=== PATIENT | female | born 1980 | race Caucasian/White ===

== ENCOUNTER 2023-02-28 11:12 | Outpatient (REF) | payer MEDICAID, SELFPAY ==
[2023-03-01 03:33] LABS: CT PCR NOT DETECTED (Not Detect.); NG PCR NOT DETECTED (Not Detect.)
[2023-03-01 13:39] LABS: BV Int Neg Control Negative (Negative); BV Int Pos Control Positive (Positive)
== END 2023-02-28 11:13 | disposition home or self-care (01) ==
LOC: HO.LAB 11:12
PROVIDERS: PCP Nurse Practitioner Family; Visit Provider Advanced Practice Midwife
DX: Z01.419 Encounter for gynecological examination (general) (routine) without abnormal findings (principal); M32.9 Systemic lupus erythematosus, unspecified; L65.9 Nonscarring hair loss, unspecified
CPT/HCPCS: 0353U; 87480; 87510; 87624; 87660; 88142

== ENCOUNTER 2023-02-28 12:27 | Outpatient (REF) | payer MEDICAID, SELFPAY ==
[2023-03-06 09:44] LABS: HPV mRNA E6/E7 rflx Not Detected (Not Detected)
== END 2023-02-28 12:28 | disposition home or self-care (01) ==
LOC: HO.LNP 12:27
PROVIDERS: Visit Provider Advanced Practice Midwife
DX: Z01.419 Encounter for gynecological examination (general) (routine) without abnormal findings (principal); Z11.51 Encounter for screening for human papillomavirus (HPV)
CPT/HCPCS: 87624; 88142

== ENCOUNTER → 2023-04-04 14:00 | Outpatient (BNV) | payer MEDICAID, SELFPAY | PROVIDERS: PCP Nurse Practitioner Family; Visit Provider Radiology Diagnostic Radiology | DX: Z12.31 Encounter for screening mammogram for malignant neoplasm of breast (principal) | CPT/HCPCS: 77063; 77067 ==

== ENCOUNTER 2023-04-04 14:31 | Outpatient (REF) | payer MEDICAID, SELFPAY ==
--- NOTE | ~2023-04-04 | MM_ITS ---
EXAMINATION: MM SCREENING DIGITAL BREAST TOMOSYNTHESIS, BILATERAL CLINICAL INFORMATION: Screening. Asymptomatic. The lifetime risk of breast cancer based on the Tyrer-Cuzick Model is 8.2%. COMPARISON: Mammography: This is a baseline mammogram. TECHNIQUE: Digital breast tomosynthesis is performed in both the craniocaudal and mediolateral oblique views along with computer-aided detection (CAD). Synthesized 2D images are generated from the tomosynthesis. FINDINGS: There are scattered areas of fibroglandular density (ACR BI-RADS breast composition Category b). There are no significant masses, abnormal calcifications, or other abnormalities. MM/MM tomosynthesis screening BI IMPRESSION: No mammographic evidence of malignancy. ASSESSMENT: BI-RADS BI-RADS 1 - Negative RECOMMENDATION: Routine annual mammography screening. 1 year F/U This examination should not preclude the clinical evaluation of a suspicious palpable abnormality. This patient's information was entered into a reminder system with a target due date for their next mammogram.
== END 2023-04-04 14:32 | disposition home or self-care (01) ==
LOC: HO.MAMMO 14:31
PROVIDERS: PCP Nurse Practitioner Family; Visit Provider Advanced Practice Midwife
DX: Z12.31 Encounter for screening mammogram for malignant neoplasm of breast (principal)
CPT/HCPCS: 77063; 77067

== ENCOUNTER 2023-04-06 13:39 | Emergency (ER) | payer MEDICAID, SELFPAY | END 2023-04-06 18:15 | disposition left against medical advice (07) | PROVIDERS: Emergency Provider Emergency Medicine; PCP Nurse Practitioner Family | DX: R51.9 Headache, unspecified (principal); M54.50 Low back pain, unspecified ==

== ENCOUNTER 2023-04-11 11:13 | Emergency (ER) | payer OTHER, MEDICAID, SELFPAY ==
[2023-04-11 11:34] VITALS: BP 143/89; PULSE 74; RESP 20; TEMP 37.1; O2SAT 98; BMI 40.4
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
[2023-04-11 12:04] LABS: Appearance Urine Clear; Color Urine Yellow; Glucose Urine UA Negative (Negative); Leukocyte Esterase Urine Negative (Negative); Nitrite Urine Negative (Negative); Specific Gravity - Urine <= 1.005 (1.005-1.025); Urine Blood Negative (Negative); Urine Ketones Negative (Negative); Urine Protein Negative (Neg-Trace)
[2023-04-11 12:05] LABS: UPreg QC Valid YES; Urine Pregnancy NEGATIVE (NEGATIVE)
[2023-04-11] MEDS: Cyclobenzaprine HCl 5 MG TABLET PO (12:33)
[2023-04-11] MEDS: Ketorolac Tromethamine 15 MG/ML VIAL IM (12:33)
== END 2023-04-11 12:48 | disposition home or self-care (01) ==
PROVIDERS: Physician Assistant; Emergency Provider Emergency Medicine
DX: Z04.1 Encounter for examination and observation following transport accident (principal); M54.2 Cervicalgia; M54.9 Dorsalgia, unspecified
CPT/HCPCS: 81003; 81025; 96372; 99284; J1885

== ENCOUNTER 2023-11-30 21:45 | Emergency (ER) | payer MEDICAID, SELFPAY ==
[2023-11-30 21:49] VITALS: BP 131/87; PULSE 104; RESP 18; TEMP 36.9; O2SAT 97; BMI 41.6
[2023-11-30 22:14] LABS: Hematocrit 32.3 % (37.0-47.0); Hemoglobin 9.9 g/dl (12.0-16.0); Mean Corpuscular HGB Conc 30.7 g/dl (31.0-35.0); Mean Corpuscular Volume 74.9 fL (80.0-98.0); Mean Platelet Volume 10.4 fL (9.4-12.3); Platelet Count 277 X10*3/uL (160-400); Red Blood Count 4.31 X10*6/uL (4.20-5.50); Red Cell Distribution Width 17.1 % (11.0-16.0); White Blood Count 8.7 X10*3/uL (4.8-10.8)
[2023-11-30 22:16] LABS: Appearance Urine Turbid; Color Urine Yellow; Glucose Urine UA Negative (Negative); Leukocyte Esterase Urine Large (3+) (Negative); Nitrite Urine Negative (Negative); PH 6.5 (5.0-9.0); Specific Gravity - Urine 1.015 (1.005-1.025); UMIC TRIGGER UACC YES; Urine Blood Moderate (2+) (Negative); Urine Ketones Negative (Negative); Urine Protein 100 (2+) mg/dL (Neg-Trace)
[2023-11-30 22:28] LABS: Alanine Aminotransferase 33 U/L (0-31); Albumin Level 3.7 g/dL (3.5-5.0); Alkaline Phosphatase 73 U/L (39-117); Anion Gap 11 (12-20); Aspartate Amino Transferase 64 U/L (5-31); Bilirubin Total 0.3 mg/dL (0.0-1.0); Blood Urea Nitrogen 16 mg/dL (9-16); Calcium 9.3 mg/dL (8.4-10.2); Carbon Dioxide 24 mmol/L (22-29); Chloride 109 mmol/L (96-108); Creatinine Clr Calc Pharmacy 120.7; Estimated Glomerular Filt Rate > 60; Glucose Random 110 mg/dL (60-115); Potassium 3.8 mmol/L (3.3-5.1); Sodium 140 mmol/L (135-145); Total Protein 7.7 g/dL (6.5-8.0)
[2023-11-30 22:43] LABS: Bacteria Urine 3+ (None Seen); Hyaline Casts Urine 0-2 /LPF (0-2); Squamous Epithelial Cell Urine 0-2 /HPF (0-2); UACC Culture Trigger YES; WBC Urine >50 /HPF (0-5)
--- NOTE | 2023-11-30 23:25 | ED.FEMALEGU ---
HPI - Female Genitourinary General Chief complaint: Urogenital-Female Stated complaint: blood in urine for 1 week Time Seen by Provider: 11/30/23 23:25 History of Present Illness HPI Narrative: The patient is a 43-year-old woman with a history of lupus. She has on no medications however. She says that for the last 5 days she has had urinary discomfort as well as urinary frequency and urgency and also suprapubic discomfort. She has had no definite fever. No vomiting. She says that few months ago she was briefly hospitalized at [facility] for a kidney infection. She does not feel that she is a sick on this occasion as she was then. Related Data Previous Rx's Medication Instructions Recorded metronidazole 0.75 % (37.5 mg/5 1 appful vaginal BEDTIME 5 days 03/01/23 gram) vaginal gel #70 grams cyclobenzaprine 5 mg tablet 5 mg PO TID PRN muscle spasm 7 04/11/23 days #21 tabs naproxen 500 mg tablet 500 mg PO BID 7 days #14 tabs 04/11/23 cefuroxime axetil 250 mg tablet 250 mg PO BID #10 tabs 11/30/23 phenazopyridine 200 mg tablet 200 mg PO TID PRN pain 6 doses #6 11/30/23 tabs Allergies Allergy/AdvReac Type Severity Reaction Status Date / Time No Known Allergies Allergy Verified 11/30/23 21:49 Review of Systems Review of Systems: Yes all other systems are reviewed and are negative PMFSH Past Medical History Medical History Breast cancer screening Cervical cancer screening Lupus Screen for sexually transmitted diseases Well woman exam with routine gynecological exam Surgical History Hx of emergency section Hx of tubal ligation Social History Social History Alcohol intake: never Patient Tobacco Use Status: Never used Tobacco Advance Directives: No Advance Directives Information Provided: Yes Physical Exam Vital Signs: Vital Signs: Last Vital Signs Temp 98.5 F 11/30/23 21:49 Pulse 104 H 11/30/23 21:49 Resp 18 11/30/23 21:49 BP 131/87 03/08/24 21:49 Pulse Ox 97 11/30/23 21:49 O2 Del Method Room Air 11/30/23 21:49 BMI result Body Mass Index 41.6 Const: Other: The patient is awake and alert, pleasant cooperative, she does not appear obviously acutely ill. HEENT: Other: The face is symmetrical. ?Mucous membranes moist. Eyes: Other: Pupils are round equal, conjunctivae are clear, extraocular movements intact Resp: Effort & Inspection: normal respiratory effort Auscultation: clear to auscultation bilaterally Cardio: Rate: regular rate Rhythm: regular rhythm Heart sounds: S1 normal heart sound present and S2 normal heart sound present GI: Other: There is mild suprapubic tenderness with palpation. Otherwise the abdomen is soft. : General: Yes no CVA tenderness Back/Spine/Pelvis: Back: no CVA tenderness Skin: Other: Skin is dry and unremarkable Neuro: Other: The patient is awake, alert, appropriate, neurologically intact Medical Decision Making Medical Decision Making MDM Narrative: The patient presents with classic symptoms of a UTI including dysuria, urgency, frequency, and suprapubic discomfort. No fever, no vomiting, no flank pain, no CVA percussion tenderness. Urinalysis is suggestive of UTI. She will be started on cefuroxime and phenazopyridine. Lab Data 11/30/23 22:08 11/30/23 22:08 Labs: Lab Results 11/30/23 Range/Units 22:08 WBC 8.7 (4.8-10.8) X10*3/uL RBC 4.31 (4.20-5.50) X10*6/uL Hgb 9.9 L (12.0-16.0) g/dl Hct 32.3 L (37.0-47.0) % MCV 74.9 L (80.0-98.0) fL MCH 23.0 L (27.0-33.0) pg MCHC 30.7 L (31.0-35.0) g/dl RDW 17.1 H (11.0-16.0) % Plt Count 277 (160-400) X10*3/uL MPV 10.4 (9.4-12.3) fL Absolute Nucleated RBC 0.000 (0.0-0.012) X10*3/uL Nucleated RBC % (auto) 0.0 (0.0-0.2) /100WBC Sodium 140 (135-145) mmol/L Potassium 3.8 (3.3-5.1) mmol/L Chloride 109 H (96-108) mmol/L Carbon Dioxide 24 (22-29) mmol/L Anion Gap 11 L (12-20) BUN 16 (9-16) mg/dL Creatinine 0.71 (0.5-1.4) mg/dL Estim Creat Clear Calc 120.7 Estimated GFR > 60 Random Glucose 110 (60-115) mg/dL Calcium 9.3 (8.4-10.2) mg/dL Total Bilirubin 0.3 (0.0-1.0) mg/dL AST 64 H (5-31) U/L ALT 33 H (0-31) U/L Alkaline Phosphatase 73 (39-117) U/L Total Protein 7.7 (6.5-8.0) g/dL Albumin 3.7 (3.5-5.0) g/dL Urine Color Yellow Urine Appearance Turbid Urine pH 6.5 (5.0-9.0) Ur Specific [place] 1.015 (1.005-1.025) Urine Protein 100 (2+) H (Neg-Trace) mg/dL Urine Glucose (UA) Negative (Negative) mg/dL Urine Ketones Negative (Negative) mg/dL Urine Blood Moderate (2+) H (Negative) Urine Nitrite Negative (Negative) Ur Leukocyte Esterase Large (3+) H (Negative) Urine RBC 11-20 H (0-2) /HPF Urine WBC >50 H (0-5) /HPF Ur Squamous Epith Cells 0-2 (0-2) /HPF Urine Bacteria 3+ (None Seen) Hyaline Casts 0-2 (0-2) /LPF Discharge Plan Discharge Clinical Impression: Urinary tract infection Patient Disposition: Home, Self-Care Instructions: Acute Urinary Retention in Women (ED) Additional Instructions: Your urine testing suggests a urinary tract infection. Please take the antibiotic 2 times a day as prescribed. Take it approximately every 12 hours. Next dose tomorrow morning. I have also sent a prescription for phenazopyridine to your pharmacy. This is a medication that can help ease the discomfort of a urinary tract infection. You may take this up to 3 times a day as prescribed. Drink lot of fluids. Please follow up with your regular doctor to discuss this episode further. Return to the emergency room if you feel significantly worse. Prescriptions: New cefuroxime axetil 250 mg tablet 250 mg PO BID Qty: 10 0RF phenazopyridine 200 mg tablet 200 mg PO TID PRN (Reason: pain) Qty: 6 0RF No Action metronidazole 0.75 % (37.5mg/5 gram) gel 1 appful vaginal BEDTIME 5 Days Qty: 70 0RF naproxen 500 mg tablet 500 mg PO BID 7 Days Qty: 14 0RF cyclobenzaprine 5 mg tablet 5 mg PO TID PRN (Reason: muscle spasm) 7 Days Qty: 21 0RF Referrals: [facility] [Primary Care Provider] - (Urinary tract infection)
[2023-11-30] MEDS: Phenazopyridine HCL 200 MG TABLET PO (23:55)
[2023-11-30] MEDS: cefuroxime axetiL 500 MG TABLET PO (23:55)
== END 2023-11-30 23:59 | disposition home or self-care (01) ==
PROVIDERS: Emergency Provider Emergency Medicine
DX: N39.0 Urinary tract infection, site not specified (principal)
CPT/HCPCS: 36415; 80053; 81001; 85027; 87086; 87088; 87186; 99283

== ENCOUNTER 2023-12-03 00:39 | Inpatient (IN) | payer MEDICAID, SELFPAY ==
[2023-12-03] VITALS (9 sets, daily range): BP systolic 103–135; BP diastolic 57–79; PULSE 69–108; RESP 16–18; TEMP 36.3–37.4; O2SAT 96–99; BMI 39.0
--- NOTE | ~2023-12-03 | CT_ITS ---
EXAMINATION: CT ABDOMEN AND PELVIS WITH CONTRAST CLINICAL INFORMATION: Right flank pain. COMPARISON: 02/25/2010 TECHNIQUE: Multidetector volumetric images were obtained from the superior aspect of the liver through the pubic symphysis following administration 85 mL of Omnipaque 350 intravenous contrast. Sagittal and coronal reformatted images were obtained on the technologist's workstation. Oral contrast: No This CT examination was performed using dose optimization techniques as appropriate, variously including the following: *Automated exposure control *Adjustment of mA and/or kV according to patient size (this includes techniques or standardized protocols for targeted exams where dose is matched to indication/reason for exam; i.e. extremities or head) *Use of iterative reconstruction technique DLP: 934 mGy-cm FINDINGS: LUNG BASES: No pleural or pericardial effusion. LIVER, GALLBLADDER, AND BILIARY TREE: The liver is enlarged. Few scattered hypodensities too small to characterize. No biliary ductal dilatation is present. The gallbladder is unremarkable with no evidence of radiopaque gallstones, gallbladder wall thickening, or obvious pericholecystic inflammatory changes. PANCREAS: Unremarkable. SPLEEN: Unremarkable. ADRENAL GLANDS: Unremarkable. KIDNEYS AND URETERS: Subtle heterogeneity of the right renal parenchyma. There is right urothelial thickening and enhancement with periureteric stranding. No hydronephrosis or perinephric fluid collection. BLADDER: Decompressed. GASTROINTESTINAL TRACT: Small and large bowel loops are of normal caliber. No small bowel obstruction. Appendix is within normal limits. ABDOMINAL WALL: Small fat-containing umbilical hernia. LYMPH NODES: No bulky lymphadenopathy. VASCULAR: Normal caliber abdominal aorta. PELVIC VISCERA: Unremarkable. OSSEOUS STRUCTURES: No destructive bone lesions. CT/CT abdomen pelvis w IV con IMPRESSION: Right urothelial thickening and enhancement with periureteric stranding. This may represent infection of the collecting system. Advise correlation with urinalysis.
[2023-12-03 01:50] LABS: MANUAL DIFF FLAG NO
[2023-12-03 01:53] LABS: Basophils Percent Auto 0.3 % (0-2); Eosinophils Absolute Auto 0.1 X10*3/uL (0.0-0.4); Eosinophils Percent Auto 0.6 % (0-4); Hematocrit 33.6 % (37.0-47.0); Hemoglobin 10.3 g/dl (12.0-16.0); Imm Gran Abs Auto 0.05 X10*3/uL (0.00-0.03); Imm Gran Pct Auto 0.5 % (0.0-0.4); Lymphocytes Absolute Auto 2.1 X10*3/uL (1.2-4.9); Lymphocytes Percent Auto 20.3 % (20-40); Mean Corpuscular HGB Conc 30.7 g/dl (31.0-35.0); Mean Corpuscular Hemoglobin 23.1 pg (27.0-33.0); Mean Corpuscular Volume 75.3 fL (80.0-98.0); Mean Platelet Volume 10.4 fL (9.4-12.3); Monocytes Absolute Auto 0.8 X10*3/uL (0.1-1.2); Monocytes Percent Auto 8.1 % (2-11); Neutrophils Absolute Auto 7.2 x10*3/uL (2.0-8.3); Neutrophils Percent Auto 70.2 % (45-73); Platelet Count 286 X10*3/uL (160-400); Red Blood Count 4.46 X10*6/uL (4.20-5.50); Red Cell Distribution Width 17.4 % (11.0-16.0); White Blood Count 10.2 X10*3/uL (4.8-10.8)
[2023-12-03 02:07] LABS: Alanine Aminotransferase 31 U/L (0-31); Albumin Level 3.7 g/dL (3.5-5.0); Alkaline Phosphatase 60 U/L (39-117); Anion Gap 11 (12-20); Aspartate Amino Transferase 34 U/L (5-31); Bilirubin Total 0.2 mg/dL (0.0-1.0); Blood Urea Nitrogen 14 mg/dL (9-16); Calcium 9.2 mg/dL (8.4-10.2); Carbon Dioxide 25 mmol/L (22-29); Chloride 107 mmol/L (96-108); Creatinine Clr Calc Pharmacy 113.1; Estimated Glomerular Filt Rate > 60; Glucose Random 111 mg/dL (60-115); Potassium 4.1 mmol/L (3.3-5.1); Sodium 139 mmol/L (135-145); Total Protein 7.7 g/dL (6.5-8.0)
--- NOTE | 2023-12-03 05:31 | ED_ITS ---
HPI - Abdominal Pain General Chief Complaint: Abdominal Pain Stated Complaint: kidney pain Time Seen by Provider: 12/03/23 05:13 Source: patient and family (, [place]) Mode of arrival: ambulatory Limitations: no limitations History of Present Illness HPI narrative: 43-year-old female with a history of lupus, pyelonephritis who presents emergency department for evaluation of right flank, right lower quadrant and suprapubic pain. Patient has had urinary tract symptoms for approximately 5 days with the symptoms +frequency and dysuria. She was seen here in the emergency department yesterday on 11/30/2023 and diagnosed with a urinary tract infection. Patient's evaluation yesterday revealed a normal WBC and kidney function. Patient's urinalysis was positive for protein, blood, leukocyte esterase with a microscopic revealing 11-20 RBCs greater than 50 WBCs and 3+ bacteria. She was treated with cefuroxime 250 mg q.12 hours x5 days and Pyridium 200 mg t.i.d. as needed for pain. Patient states that her pain got significantly worse, her right flank pain was 10/10, she had chills but no fever. She denied nausea, vomiting or diarrhea. Patient states that 2 months ago she was hospitalized for [address] [facility] for pyelonephritis. Urine culture from 11/30/2023 is growing Gram-negative rods Related Data Previous Rx's Medication Instructions Recorded metronidazole 0.75 % (37.5 mg/5 1 appful vaginal BEDTIME 5 days 03/01/23 gram) vaginal gel #70 grams cyclobenzaprine 5 mg tablet 5 mg PO TID PRN muscle spasm 7 04/11/23 days #21 tabs naproxen 500 mg tablet 500 mg PO BID 7 days #14 tabs 04/11/23 cefuroxime axetil 250 mg tablet 250 mg PO BID #10 tabs 11/30/23 phenazopyridine 200 mg tablet 200 mg PO TID PRN pain 6 doses #6 11/30/23 tabs Allergies Allergy/AdvReac Type Severity Reaction Status Date / Time No Known Allergies Allergy Verified 11/30/23 21:49 Review of Systems Review of Systems Yes all other systems are reviewed and are negative PMFSH Past Medical History [facility] Narrative: Social history: She denies tobacco, alcohol and drug use. Medical History Screen for sexually transmitted diseases Cervical cancer screening Breast cancer screening Well woman exam with routine gynecological exam Lupus Surgical History Hx of emergency section Hx of tubal ligation Social History Social History Alcohol intake: never Patient Tobacco Use Status: Never used Tobacco Smoked in Last 30 Days: No Use of substances other than those prescribed or required for medical reasons: No Advance Directives: No Advance Directives Information Provided: No Physical Exam ED Vital Signs: Vital Signs - 24 hr 12/03/23 00:41 12/03/23 02:49 12/03/23 05:42 Temperature 97.9 F 98.8 F Pulse Rate 108 H 101 H Pulse Rate [Monitor] 97 Respiratory Rate 18 16 Blood Pressure 135/78 131/76 Pulse Oximetry 99 97 Oxygen Delivery Method Room Air Room Air 12/03/23 06:06 Temperature 98.6 F Pulse Rate 72 Pulse Rate [Monitor] Respiratory Rate 16 Blood Pressure 125/69 Pulse Oximetry 97 Oxygen Delivery Method Room Air BMI result Body Mass Index 39.0 Vital signs revealed an elevated heart rate of 108 otherwise unremarkable. Exam: General: Awake, alert in no distress, elevated weight 99 kg, elevated BMI 39 kg per m2 Head: Normocephalic, atraumatic EENT: PERRL, Lids normal, sclera normal, conjunctiva normal, nose normal , ears normal, throat without erythema or exudates Neck: Supple, no adenopathy Lung: breath sounds symmetric, no wheezing, rales or rhonchi Chest: symmetric movement, nontender Heart: regular rate and rhythm, normal S1, S2 no murmurs or rubs Abdomen: soft, moderate suprapubic tenderness, mild to moderate right lower quadrant tenderness, nondistended, normal bowel sounds Back: no vertebral tenderness, moderate right-sided CVA tenderness Extremities: no deformities, moves all extremities symmetrically Neuro: Awake, alert, oriented, normal speech, cranial nerves intact, moves all extremities symmetrically Psych: Pleasant, cooperative Medical Decision Making Medical Decision Making MDM Narrative: 43-year-old female with a history of lupus, pyelonephritis 2 months prior, presents with 5 days of frequency, urgency, dysuria, suprapubic pain, right flank and right lower quadrant pain, seen on 11/30/2023 in the emergency department diagnosed with urinary tract infection and started on cefuroxime and Pyridium with no improvement of her symptoms. Urine culture from 11/30/2023 is growing Gram-negative rods. Patient returns to emergency department for evaluation of increased pain in her right flank area which is 10/10, chills but no fever. Vital signs did reveal an elevated heart rate otherwise unremarkable. Exam did reveal right-sided CVA tenderness, right lower quadrant and suprapubic tenderness. Differential diagnosis: ?Includes but is not limited to cystitis, pyelonephritis, renal abscess, kidney stone, ureteral stone, renal colic, ureteral colic, electrolyte abnormalities, anemia Following evaluation was ordered: CBC, CMP, urinalysis, lactic acid, blood cultures x2 Patient was initially treated with the following: IV insert, pulse ox monitoring, cardiac monitoring, Toradol 15 mg IV, Zofran 4 mg IV, ceftriaxone 1 g IV, normal saline x1 L. Course: 07:41 My interpretation patient's laboratory evaluation as follows: WBC normal 10,200. Microcytic anemia with an H&H of 10.3 and 33.6 with a low MCV of 73. BUN creatinine were normal 14 and 0.73. Lactic acid was normal at 0.8. Urinalysis was positive for protein, nitrates and leukocyte esterase. Microscopic revealed 3-5 RBCs, greater than 50 WBCs, no bacteria seen-the patient is taking antibiotics. Patient's pain was 10/10 and now is 6/10. This time I am concerned that she may have pyelonephritis and has failed outpatient treatment therefore I will discuss admission with the covering hospitalist. I did discuss the patient's presentation over tiger text with the covering hospitalist, Dr. Liang At the end of my shift, the patient's CT scan of the abdomen pelvis with IV contrast is pending and the patient's care was turned over to my colleague, Dr Laina Bernabe. Admission/Observation Consideration of admission/observation: Escalation of care including admission/observation considered Consult Healthcare Provider Management of the patient was discussed with: Hospitalist Lab Data MDM Lab Attestation statement: I reviewed the patient's lab results. 12/03/23 01:40 12/03/23 01:41 Labs: Lab Results 12/03/23 12/03/23 12/03/23 Range/Units 01:40 01:41 05:55 WBC 10.2 (4.8-10.8) X10*3/uL RBC 4.46 (4.20-5.50) X10*6/uL Hgb 10.3 L (12.0-16.0) g/dl Hct 33.6 L (37.0-47.0) % MCV 75.3 L (80.0-98.0) fL MCH 23.1 L (27.0-33.0) pg MCHC 30.7 L (31.0-35.0) g/dl RDW 17.4 H (11.0-16.0) % Plt Count 286 (160-400) X10*3/uL MPV 10.4 (9.4-12.3) fL Immature Gran % (Auto) 0.5 H (0.0-0.4) % Neut % (Auto) 70.2 (45-73) % Lymph % (Auto) 20.3 (20-40) % [place] % (Auto) 8.1 (2-11) % Eos % (Auto) 0.6 (0-4) % Baso % (Auto) 0.3 (0-2) % Lymph # (Auto) 2.1 (1.2-4.9) X10*3/uL [place] # (Auto) 0.8 (0.1-1.2) X10*3/uL Eos # (Auto) 0.1 (0.0-0.4) X10*3/uL Baso # (Auto) 0.0 (0.0-0.2) X10*3/uL Abs Immat Gran (auto) 0.05 H (0.00-0.03) X10*3/uL Absolute Neuts (auto) 7.2 (2.0-8.3) x10*3/uL Absolute Nucleated RBC 0.000 (0.0-0.012) X10*3/uL Nucleated RBC % (auto) 0.0 (0.0-0.2) /100WBC Sodium 139 (135-145) mmol/L Potassium 4.1 (3.3-5.1) mmol/L Chloride 107 (96-108) mmol/L Carbon Dioxide 25 (22-29) mmol/L Anion Gap 11 L (12-20) BUN 14 (9-16) mg/dL Creatinine 0.73 (0.5-1.4) mg/dL Estim Creat Clear Calc 113.1 Estimated GFR > 60 Random Glucose 111 (60-115) mg/dL Lactic Acid 0.8 (0.5-2.0) mmol/L Calcium 9.2 (8.4-10.2) mg/dL Total Bilirubin 0.2 (0.0-1.0) mg/dL AST 34 H (5-31) U/L ALT 31 (0-31) U/L Alkaline Phosphatase 60 (39-117) U/L Total Protein 7.7 (6.5-8.0) g/dL Albumin 3.7 (3.5-5.0) g/dL Urine Color [place] A Urine Appearance Urine pH (5.0-9.0) Ur Specific [place] (1.005-1.025) Urine Protein (Neg-Trace) mg/dL Urine Glucose (UA) (Negative) mg/dL Urine Ketones (Negative) mg/dL Urine Blood (Negative) Urine Nitrite (Negative) Ur Leukocyte Esterase (Negative) Urine RBC (0-2) /HPF Urine WBC (0-5) /HPF Urine WBC Clumps Ur Squamous Epith Cells (0-2) /HPF Ur Transition Epith Cell Ur Renal Epithelial Cell Calcium Oxalate Crystal Leucine Crystals Cystine Crystals Tyrosine Crystals Other Crystals Urine Bacteria (None Seen) Urine Parasites Bilirubin Casts Epithelial Casts Fatty Casts Hyaline Casts (0-2) /LPF Granular Casts Waxy Casts Broad Casts RBC Casts WBC Casts Other Casts Urine Trichomonas Urine Yeast 12/03/23 12/03/23 12/03/23 Range/Units 05:55 05:55 05:55 WBC (4.8-10.8) X10*3/uL RBC (4.20-5.50) X10*6/uL Hgb (12.0-16.0) g/dl Hct (37.0-47.0) % MCV (80.0-98.0) fL MCH (27.0-33.0) pg MCHC (31.0-35.0) g/dl RDW (11.0-16.0) % Plt Count (160-400) X10*3/uL MPV (9.4-12.3) fL Immature Gran % (Auto) (0.0-0.4) % Neut % (Auto) (45-73) % Lymph % (Auto) (20-40) % [place] % (Auto) (2-11) % Eos % (Auto) (0-4) % Baso % (Auto) (0-2) % Lymph # (Auto) (1.2-4.9) X10*3/uL [place] # (Auto) (0.1-1.2) X10*3/uL Eos # (Auto) (0.0-0.4) X10*3/uL Baso # (Auto) (0.0-0.2) X10*3/uL Abs Immat Gran (auto) (0.00-0.03) X10*3/uL Absolute Neuts (auto) (2.0-8.3) x10*3/uL Absolute Nucleated RBC (0.0-0.012) X10*3/uL Nucleated RBC % (auto) (0.0-0.2) /100WBC Sodium (135-145) mmol/L Potassium (3.3-5.1) mmol/L Chloride (96-108) mmol/L Carbon Dioxide (22-29) mmol/L Anion Gap (12-20) BUN (9-16) mg/dL Creatinine (0.5-1.4) mg/dL Estim Creat Clear Calc Estimated GFR Random Glucose (60-115) mg/dL Lactic Acid (0.5-2.0) mmol/L Calcium (8.4-10.2) mg/dL Total Bilirubin (0.0-1.0) mg/dL AST (5-31) U/L ALT (0-31) U/L Alkaline Phosphatase (39-117) U/L Total Protein (6.5-8.0) g/dL Albumin (3.5-5.0) g/dL Urine Color Cancelled Urine Appearance Cloudy Cancelled Urine pH 5.5 Cancelled (5.0-9.0) Ur Specific [place] 1.020 (1.005-1.025) Urine Protein (Neg-Trace) mg/dL Urine Glucose (UA) (Negative) mg/dL Urine Ketones (Negative) mg/dL Urine Blood (Negative) Urine Nitrite (Negative) Ur Leukocyte Esterase (Negative) Urine RBC (0-2) /HPF Urine WBC (0-5) /HPF Urine WBC Clumps Ur Squamous Epith Cells (0-2) /HPF Ur Transition Epith Cell Ur Renal Epithelial Cell Calcium Oxalate Crystal Leucine Crystals Cystine Crystals Tyrosine Crystals Other Crystals Urine Bacteria (None Seen) Urine Parasites Bilirubin Casts Epithelial Casts Fatty Casts Hyaline Casts (0-2) /LPF Granular Casts Waxy Casts Broad Casts RBC Casts WBC Casts Other Casts Urine Trichomonas Urine Yeast 12/03/23 12/03/23 12/03/23 Range/Units 05:55 05:55 05:55 WBC (4.8-10.8) X10*3/uL RBC (4.20-5.50) X10*6/uL Hgb (12.0-16.0) g/dl Hct (37.0-47.0) % MCV (80.0-98.0) fL MCH (27.0-33.0) pg MCHC (31.0-35.0) g/dl RDW (11.0-16.0) % Plt Count (160-400) X10*3/uL MPV (9.4-12.3) fL Immature Gran % (Auto) (0.0-0.4) % Neut % (Auto) (45-73) % Lymph % (Auto) (20-40) % [place] % (Auto) (2-11) % Eos % (Auto) (0-4) % Baso % (Auto) (0-2) % Lymph # (Auto) (1.2-4.9) X10*3/uL [place] # (Auto) (0.1-1.2) X10*3/uL Eos # (Auto) (0.0-0.4) X10*3/uL Baso # (Auto) (0.0-0.2) X10*3/uL Abs Immat Gran (auto) (0.00-0.03) X10*3/uL Absolute Neuts (auto) (2.0-8.3) x10*3/uL Absolute Nucleated RBC (0.0-0.012) X10*3/uL Nucleated RBC % (auto) (0.0-0.2) /100WBC Sodium (135-145) mmol/L Potassium (3.3-5.1) mmol/L Chloride (96-108) mmol/L Carbon Dioxide (22-29) mmol/L Anion Gap (12-20) BUN (9-16) mg/dL Creatinine (0.5-1.4) mg/dL Estim Creat Clear Calc Estimated GFR Random Glucose (60-115) mg/dL Lactic Acid (0.5-2.0) mmol/L Calcium (8.4-10.2) mg/dL Total Bilirubin (0.0-1.0) mg/dL AST (5-31) U/L ALT (0-31) U/L Alkaline Phosphatase (39-117) U/L Total Protein (6.5-8.0) g/dL Albumin (3.5-5.0) g/dL Urine Color Urine Appearance Urine pH (5.0-9.0) Ur Specific [place] Cancelled (1.005-1.025) Urine Protein 30 (1+) H Cancelled (Neg-Trace) mg/dL Urine Glucose (UA) Negative Cancelled (Negative) mg/dL Urine Ketones Negative (Negative) mg/dL Urine Blood (Negative) Urine Nitrite (Negative) Ur Leukocyte Esterase (Negative) Urine RBC (0-2) /HPF Urine WBC (0-5) /HPF Urine WBC Clumps Ur Squamous Epith Cells (0-2) /HPF Ur Transition Epith Cell Ur Renal Epithelial Cell Calcium Oxalate Crystal Leucine Crystals Cystine Crystals Tyrosine Crystals Other Crystals Urine Bacteria (None Seen) Urine Parasites Bilirubin Casts Epithelial Casts Fatty Casts Hyaline Casts (0-2) /LPF Granular Casts Waxy Casts Broad Casts RBC Casts WBC Casts Other Casts Urine Trichomonas Urine Yeast 12/03/23 12/03/23 12/03/23 Range/Units 05:55 05:55 05:55 WBC (4.8-10.8) X10*3/uL RBC (4.20-5.50) X10*6/uL Hgb (12.0-16.0) g/dl Hct (37.0-47.0) % MCV (80.0-98.0) fL MCH (27.0-33.0) pg MCHC (31.0-35.0) g/dl RDW (11.0-16.0) % Plt Count (160-400) X10*3/uL MPV (9.4-12.3) fL Immature Gran % (Auto) (0.0-0.4) % Neut % (Auto) (45-73) % Lymph % (Auto) (20-40) % [place] % (Auto) (2-11) % Eos % (Auto) (0-4) % Baso % (Auto) (0-2) % Lymph # (Auto) (1.2-4.9) X10*3/uL [place] # (Auto) (0.1-1.2) X10*3/uL Eos # (Auto) (0.0-0.4) X10*3/uL Baso # (Auto) (0.0-0.2) X10*3/uL Abs Immat Gran (auto) (0.00-0.03) X10*3/uL Absolute Neuts (auto) (2.0-8.3) x10*3/uL Absolute Nucleated RBC (0.0-0.012) X10*3/uL Nucleated RBC % (auto) (0.0-0.2) /100WBC Sodium (135-145) mmol/L Potassium (3.3-5.1) mmol/L Chloride (96-108) mmol/L Carbon Dioxide (22-29) mmol/L Anion Gap (12-20) BUN (9-16) mg/dL Creatinine (0.5-1.4) mg/dL Estim Creat Clear Calc Estimated GFR Random Glucose (60-115) mg/dL Lactic Acid (0.5-2.0) mmol/L Calcium (8.4-10.2) mg/dL Total Bilirubin (0.0-1.0) mg/dL AST (5-31) U/L ALT (0-31) U/L Alkaline Phosphatase (39-117) U/L Total Protein (6.5-8.0) g/dL Albumin (3.5-5.0) g/dL Urine Color Urine Appearance Urine pH (5.0-9.0) Ur Specific [place] (1.005-1.025) Urine Protein (Neg-Trace) mg/dL Urine Glucose (UA) (Negative) mg/dL Urine Ketones Cancelled (Negative) mg/dL Urine Blood Negative Cancelled (Negative) Urine Nitrite Positive H Cancelled (Negative) Ur Leukocyte Esterase Moderate (2+) H (Negative) Urine RBC (0-2) /HPF Urine WBC (0-5) /HPF Urine WBC Clumps Ur Squamous Epith Cells (0-2) /HPF Ur Transition Epith Cell Ur Renal Epithelial Cell Calcium Oxalate Crystal Leucine Crystals Cystine Crystals Tyrosine Crystals Other Crystals Urine Bacteria (None Seen) Urine Parasites Bilirubin Casts Epithelial Casts Fatty Casts Hyaline Casts (0-2) /LPF Granular Casts Waxy Casts Broad Casts RBC Casts WBC Casts Other Casts Urine Trichomonas Urine Yeast 12/03/23 12/03/23 12/03/23 Range/Units 05:55 05:55 05:55 WBC (4.8-10.8) X10*3/uL RBC (4.20-5.50) X10*6/uL Hgb (12.0-16.0) g/dl Hct (37.0-47.0) % MCV (80.0-98.0) fL MCH (27.0-33.0) pg MCHC (31.0-35.0) g/dl RDW (11.0-16.0) % Plt Count (160-400) X10*3/uL MPV (9.4-12.3) fL Immature Gran % (Auto) (0.0-0.4) % Neut % (Auto) (45-73) % Lymph % (Auto) (20-40) % [place] % (Auto) (2-11) % Eos % (Auto) (0-4) % Baso % (Auto) (0-2) % Lymph # (Auto) (1.2-4.9) X10*3/uL [place] # (Auto) (0.1-1.2) X10*3/uL Eos # (Auto) (0.0-0.4) X10*3/uL Baso # (Auto) (0.0-0.2) X10*3/uL Abs Immat Gran (auto) (0.00-0.03) X10*3/uL Absolute Neuts (auto) (2.0-8.3) x10*3/uL Absolute Nucleated RBC (0.0-0.012) X10*3/uL Nucleated RBC % (auto) (0.0-0.2) /100WBC Sodium (135-145) mmol/L Potassium (3.3-5.1) mmol/L Chloride (96-108) mmol/L Carbon Dioxide (22-29) mmol/L Anion Gap (12-20) BUN (9-16) mg/dL Creatinine (0.5-1.4) mg/dL Estim Creat Clear Calc Estimated GFR Random Glucose (60-115) mg/dL Lactic Acid (0.5-2.0) mmol/L Calcium (8.4-10.2) mg/dL Total Bilirubin (0.0-1.0) mg/dL AST (5-31) U/L ALT (0-31) U/L Alkaline Phosphatase (39-117) U/L Total Protein (6.5-8.0) g/dL Albumin (3.5-5.0) g/dL Urine Color Urine Appearance Urine pH (5.0-9.0) Ur Specific [place] (1.005-1.025) Urine Protein (Neg-Trace) mg/dL Urine Glucose (UA) (Negative) mg/dL Urine Ketones (Negative) mg/dL Urine Blood (Negative) Urine Nitrite (Negative) Ur Leukocyte Esterase Cancelled (Negative) Urine RBC 3-5 H Cancelled (0-2) /HPF Urine WBC >50 H Cancelled (0-5) /HPF Urine WBC Clumps Cancelled Ur Squamous Epith Cells 0-2 (0-2) /HPF Ur Transition Epith Cell Ur Renal Epithelial Cell Calcium Oxalate Crystal Leucine Crystals Cystine Crystals Tyrosine Crystals Other Crystals Urine Bacteria (None Seen) Urine Parasites Bilirubin Casts Epithelial Casts Fatty Casts Hyaline Casts (0-2) /LPF Granular Casts Waxy Casts Broad Casts RBC Casts WBC Casts Other Casts Urine Trichomonas Urine Yeast 12/03/23 12/03/23 12/03/23 Range/Units 05:55 05:55 05:55 WBC (4.8-10.8) X10*3/uL RBC (4.20-5.50) X10*6/uL Hgb (12.0-16.0) g/dl Hct (37.0-47.0) % MCV (80.0-98.0) fL MCH (27.0-33.0) pg MCHC (31.0-35.0) g/dl RDW (11.0-16.0) % Plt Count (160-400) X10*3/uL MPV (9.4-12.3) fL Immature Gran % (Auto) (0.0-0.4) % Neut % (Auto) (45-73) % Lymph % (Auto) (20-40) % [place] % (Auto) (2-11) % Eos % (Auto) (0-4) % Baso % (Auto) (0-2) % Lymph # (Auto) (1.2-4.9) X10*3/uL [place] # (Auto) (0.1-1.2) X10*3/uL Eos # (Auto) (0.0-0.4) X10*3/uL Baso # (Auto) (0.0-0.2) X10*3/uL Abs Immat Gran (auto) (0.00-0.03) X10*3/uL Absolute Neuts (auto) (2.0-8.3) x10*3/uL Absolute Nucleated RBC (0.0-0.012) X10*3/uL Nucleated RBC % (auto) (0.0-0.2) /100WBC Sodium (135-145) mmol/L Potassium (3.3-5.1) mmol/L Chloride (96-108) mmol/L Carbon Dioxide (22-29) mmol/L Anion Gap (12-20) BUN (9-16) mg/dL Creatinine (0.5-1.4) mg/dL Estim Creat Clear Calc Estimated GFR Random Glucose (60-115) mg/dL Lactic Acid (0.5-2.0) mmol/L Calcium (8.4-10.2) mg/dL Total Bilirubin (0.0-1.0) mg/dL AST (5-31) U/L ALT (0-31) U/L Alkaline Phosphatase (39-117) U/L Total Protein (6.5-8.0) g/dL Albumin (3.5-5.0) g/dL Urine Color Urine Appearance Urine pH (5.0-9.0) Ur Specific [place] (1.005-1.025) Urine Protein (Neg-Trace) mg/dL Urine Glucose (UA) (Negative) mg/dL Urine Ketones (Negative) mg/dL Urine Blood (Negative) Urine Nitrite (Negative) Ur Leukocyte Esterase (Negative) Urine RBC (0-2) /HPF Urine WBC (0-5) /HPF Urine WBC Clumps Ur Squamous Epith Cells Cancelled (0-2) /HPF Ur Transition Epith Cell Cancelled Ur Renal Epithelial Cell Cancelled Calcium Oxalate Crystal Cancelled Leucine Crystals Cancelled Cystine Crystals Cancelled Tyrosine Crystals Cancelled Other Crystals Cancelled Urine Bacteria None Seen Cancelled (None Seen) Urine Parasites Cancelled Bilirubin Casts Cancelled Epithelial Casts Cancelled Fatty Casts Cancelled Hyaline Casts 0-2 Cancelled (0-2) /LPF Granular Casts Cancelled Waxy Casts Cancelled Broad Casts Cancelled RBC Casts Cancelled WBC Casts Cancelled Other Casts Cancelled Urine Trichomonas Cancelled Urine Yeast Cancelled Radiology Impression Discussion of test interpretation with radiology: I have reviewed the radiologist's reading. Independent Historian Clinical information obtained from an independent historian. History obtained from or confirmed by: Spouse Chronic Conditions Patient?s care impacted by: Other (Lupus) Medications Administered Discontinued Medications Generic Name Dose Route Start Last Admin Trade Name Sonq PRN Reason Stop Dose Admin Sodium Chloride 1,000 mls @ 999 mls/hr 12/03/23 05:26 12/03/23 07:11 Ns IV 12/03/23 06:26 Infused .Q1H1M STA Infusion Ceftriaxone Sodium 1 gm/ 50 mls @ 100 mls/hr 12/03/23 05:26 12/03/23 06:44 Sodium Chloride IV 12/03/23 05:55 Infused ONCE ONE Infusion Iohexol 85 ml 12/03/23 06:31 12/03/23 06:32 Iohexol 350 Mg/Ml 100 Ml Infus..Btl IV 12/03/23 06:32 85 ml ONCE ONE Administration Ketorolac Tromethamine 15 mg 12/03/23 05:26 12/03/23 06:00 Ketorolac Tromethamine 15 Mg/Ml Vial IVPUSH 12/03/23 05:27 15 mg ONCE STA Administration Ondansetron HCl 4 mg 12/03/23 05:26 12/03/23 06:00 Ondansetron Hcl 4 Mg/2 Ml Vial IVPUSH 12/03/23 05:27 4 mg ONCE ONE Administration Discharge Plan Discharge Clinical Impression: Pyelonephritis of right kidney Patient Disposition: Admitted As Inpatient
[2023-12-03] MEDS: cefTRIAXone sodium 1 GM in 0.9 % Sodium Chloride 50 ML IV (06:00)
[2023-12-03] MEDS: ondansetron HCL 4 MG/2 ML VIAL IVPUSH (06:00)
[2023-12-03] MEDS: Ketorolac Tromethamine 15 MG/ML VIAL IVPUSH ×2 (06:00→16:03)
[2023-12-03] MEDS: 0.9 % Sodium Chloride 1,000 ML 999 ML IV (06:05)
[2023-12-03 06:11] LABS: Lactic Acid 0.8 mmol/L (0.5-2.0)
[2023-12-03 06:16] LABS: Appearance Urine Cloudy; Bacteria Urine None Seen (None Seen); Color Urine Orange; Glucose Urine UA Negative (Negative); Hyaline Casts Urine 0-2 /LPF (0-2); Leukocyte Esterase Urine Moderate (2+) (Negative); Nitrite Urine Positive (Negative); PH 5.5 (5.0-9.0); Squamous Epithelial Cell Urine 0-2 /HPF (0-2); UACC Culture Trigger YES; UMIC TRIGGER UACC YES; Urine Blood Negative (Negative); Urine Ketones Negative (Negative); Urine Protein 30 (1+) mg/dL (Neg-Trace); WBC Urine >50 /HPF (0-5)
[2023-12-03] MEDS: iohexoL 350 MG/ML 100 ML INFUS..BTL 85 ML IV (06:32)
--- NOTE | 2023-12-03 08:58 | PM.IMHP ---
History of Present Illness Date of Service: 12/03/23 Chief Complaint: Flank pain, chills The patient is a 43 year old female with a PMH of Lupus who presents to the ED, 3 days after her initial ED visit, for complaints of worsening R flank pain with associated chills, dysuria, urgency and frequency. The patient presented 3 days [employer] T[employer]OW PU[employer]ER to our ED where she was diagnosed with a UTI. She was prescribed PO cefuroxime and analgesics. She was discharged home and reproted minimal improvement with her treatment regiment. She reports severe pain and chills the preceding 24 hours prior to admission. In the ED, the patient was mildly tachycardic. Her urine C&S from 3 days ago is showing gram negative rods. She has been given IVF, IV ceftriaxone and IV analgesics. She continues to exhibit pain and hence, will be admitted for further treatment. Review of Systems Review of Systems: Negative except HPI/interval history. [facility] Medical History Screen for sexually transmitted diseases Cervical cancer screening Breast cancer screening Well woman exam with routine gynecological exam Lupus Surgical History Hx of emergency section Hx of tubal ligation Social History Alcohol intake: never Patient Tobacco Use Status: Never used Tobacco Smoked in Last 30 Days: No Use of substances other than those prescribed or required for medical reasons: No Advance Directives: No Advance Directives Information Provided: No Meds Allergies Allergy/AdvReac Type Severity Reaction Status Date / Time No Known Allergies Allergy Verified 11/30/23 21:49 Physical Exam Vital Signs and Narrative: Vital Signs: Last Vital Signs Temp 98.6 F 12/03/23 06:06 Pulse 72 12/03/23 06:06 Resp 16 12/03/23 06:06 BP 125/69 12/03/23 06:06 Pulse Ox 97 12/03/23 06:06 O2 Del Method Room Air 12/03/23 06:06 BMI result Body Mass Index 39.0 Const: Other: Constitutional - Awake and Alert, No apparent distress Eyes - PERRLA, EOMI Cardiovascular - S1S2, RRR, No edema Respiratory - Normal lung expansion, Normal respiratory effort, No respiratory distress, CTA bilaterally Gastrointestinal - NT / ND; +BS; No rebound or guarding - R Cva TTP Extremities - no calf tenderness bilaterally, no swelling Musculoskeletal - Normal inspection, normal ROM Skin - Warm/Dry Neurological - Alert & oriented x3, No focal deficit Psychological - Appropriate affect Results Labs 12/03/23 01:40 12/03/23 01:41 Labs: Laboratory Results - last 24 hr 12/03/23 12/03/23 12/03/23 01:40 01:41 05:55 MCV 75.3 L MCH 23.1 L MCHC 30.7 L RDW 17.4 H Plt Count 286 MPV 10.4 Immature Gran % (Auto) 0.5 H Neut % (Auto) 70.2 Lymph % (Auto) 20.3 [place] % (Auto) 8.1 Eos % (Auto) 0.6 Baso % (Auto) 0.3 Lymph # (Auto) 2.1 [place] # (Auto) 0.8 Eos # (Auto) 0.1 Baso # (Auto) 0.0 Abs Immat Gran (auto) 0.05 H Absolute Neuts (auto) 7.2 Absolute Nucleated RBC 0.000 Nucleated RBC % (auto) 0.0 Anion Gap 11 L Estim Creat Clear Calc 113.1 Estimated GFR > 60 Random Glucose 111 Lactic Acid 0.8 Calcium 9.2 Total Bilirubin 0.2 AST 34 H ALT 31 Alkaline Phosphatase 60 Total Protein 7.7 Albumin 3.7 Urine Color [place] A Urine Appearance Urine pH Ur Specific [place] Urine Protein Urine Glucose (UA) Urine Ketones Urine Blood Urine Nitrite Ur Leukocyte Esterase Urine RBC Urine WBC Urine WBC Clumps Ur Squamous Epith Cells Ur Transition Epith Cell Ur Renal Epithelial Cell Calcium Oxalate Crystal Leucine Crystals Cystine Crystals Tyrosine Crystals Other Crystals Urine Bacteria Urine Parasites Bilirubin Casts Epithelial Casts Fatty Casts Hyaline Casts Granular Casts Waxy Casts Broad Casts RBC Casts WBC Casts Other Casts Urine Trichomonas Urine Yeast 12/03/23 12/03/23 12/03/23 05:55 05:55 05:55 MCV MCH MCHC RDW Plt Count MPV Immature Gran % (Auto) Neut % (Auto) Lymph % (Auto) [place] % (Auto) Eos % (Auto) Baso % (Auto) Lymph # (Auto) [place] # (Auto) Eos # (Auto) Baso # (Auto) Abs Immat Gran (auto) Absolute Neuts (auto) Absolute Nucleated RBC Nucleated RBC % (auto) Anion Gap Estim Creat Clear Calc Estimated GFR Random Glucose Lactic Acid Calcium Total Bilirubin AST ALT Alkaline Phosphatase Total Protein Albumin Urine Color Cancelled Urine Appearance Cloudy Cancelled Urine pH 5.5 Cancelled Ur Specific [place] 1.020 Urine Protein Urine Glucose (UA) Urine Ketones Urine Blood Urine Nitrite Ur Leukocyte Esterase Urine RBC Urine WBC Urine WBC Clumps Ur Squamous Epith Cells Ur Transition Epith Cell Ur Renal Epithelial Cell Calcium Oxalate Crystal Leucine Crystals Cystine Crystals Tyrosine Crystals Other Crystals Urine Bacteria Urine Parasites Bilirubin Casts Epithelial Casts Fatty Casts Hyaline Casts Granular Casts Waxy Casts Broad Casts RBC Casts WBC Casts Other Casts Urine Trichomonas Urine Yeast 12/03/23 12/03/23 12/03/23 05:55 05:55 05:55 MCV MCH MCHC RDW Plt Count MPV Immature Gran % (Auto) Neut % (Auto) Lymph % (Auto) [place] % (Auto) Eos % (Auto) Baso % (Auto) Lymph # (Auto) [place] # (Auto) Eos # (Auto) Baso # (Auto) Abs Immat Gran (auto) Absolute Neuts (auto) Absolute Nucleated RBC Nucleated RBC % (auto) Anion Gap Estim Creat Clear Calc Estimated GFR Random Glucose Lactic Acid Calcium Total Bilirubin AST ALT Alkaline Phosphatase Total Protein Albumin Urine Color Urine Appearance Urine pH Ur Specific [place] Cancelled Urine Protein 30 (1+) H Cancelled Urine Glucose (UA) Negative Cancelled Urine Ketones Negative Urine Blood Urine Nitrite Ur Leukocyte Esterase Urine RBC Urine WBC Urine WBC Clumps Ur Squamous Epith Cells Ur Transition Epith Cell Ur Renal Epithelial Cell Calcium Oxalate Crystal Leucine Crystals Cystine Crystals Tyrosine Crystals Other Crystals Urine Bacteria Urine Parasites Bilirubin Casts Epithelial Casts Fatty Casts Hyaline Casts Granular Casts Waxy Casts Broad Casts RBC Casts WBC Casts Other Casts Urine Trichomonas Urine Yeast 12/03/23 12/03/23 12/03/23 05:55 05:55 05:55 MCV MCH MCHC RDW Plt Count MPV Immature Gran % (Auto) Neut % (Auto) Lymph % (Auto) [place] % (Auto) Eos % (Auto) Baso % (Auto) Lymph # (Auto) [place] # (Auto) Eos # (Auto) Baso # (Auto) Abs Immat Gran (auto) Absolute Neuts (auto) Absolute Nucleated RBC Nucleated RBC % (auto) Anion Gap Estim Creat Clear Calc Estimated GFR Random Glucose Lactic Acid Calcium Total Bilirubin AST ALT Alkaline Phosphatase Total Protein Albumin Urine Color Urine Appearance Urine pH Ur Specific [place] Urine Protein Urine Glucose (UA) Urine Ketones Cancelled Urine Blood Negative Cancelled Urine Nitrite Positive H Cancelled Ur Leukocyte Esterase Moderate (2+) H Urine RBC Urine WBC Urine WBC Clumps Ur Squamous Epith Cells Ur Transition Epith Cell Ur Renal Epithelial Cell Calcium Oxalate Crystal Leucine Crystals Cystine Crystals Tyrosine Crystals Other Crystals Urine Bacteria Urine Parasites Bilirubin Casts Epithelial Casts Fatty Casts Hyaline Casts Granular Casts Waxy Casts Broad Casts RBC Casts WBC Casts Other Casts Urine Trichomonas Urine Yeast 12/03/23 12/03/23 12/03/23 05:55 05:55 05:55 MCV MCH MCHC RDW Plt Count MPV Immature Gran % (Auto) Neut % (Auto) Lymph % (Auto) [place] % (Auto) Eos % (Auto) Baso % (Auto) Lymph # (Auto) [place] # (Auto) Eos # (Auto) Baso # (Auto) Abs Immat Gran (auto) Absolute Neuts (auto) Absolute Nucleated RBC Nucleated RBC % (auto) Anion Gap Estim Creat Clear Calc Estimated GFR Random Glucose Lactic Acid Calcium Total Bilirubin AST ALT Alkaline Phosphatase Total Protein Albumin Urine Color Urine Appearance Urine pH Ur Specific [place] Urine Protein Urine Glucose (UA) Urine Ketones Urine Blood Urine Nitrite Ur Leukocyte Esterase Cancelled Urine RBC 3-5 H Cancelled Urine WBC >50 H Cancelled Urine WBC Clumps Cancelled Ur Squamous Epith Cells 0-2 Ur Transition Epith Cell Ur Renal Epithelial Cell Calcium Oxalate Crystal Leucine Crystals Cystine Crystals Tyrosine Crystals Other Crystals Urine Bacteria Urine Parasites Bilirubin Casts Epithelial Casts Fatty Casts Hyaline Casts Granular Casts Waxy Casts Broad Casts RBC Casts WBC Casts Other Casts Urine Trichomonas Urine Yeast 12/03/23 12/03/23 12/03/23 05:55 05:55 05:55 MCV MCH MCHC RDW Plt Count MPV Immature Gran % (Auto) Neut % (Auto) Lymph % (Auto) [place] % (Auto) Eos % (Auto) Baso % (Auto) Lymph # (Auto) [place] # (Auto) Eos # (Auto) Baso # (Auto) Abs Immat Gran (auto) Absolute Neuts (auto) Absolute Nucleated RBC Nucleated RBC % (auto) Anion Gap Estim Creat Clear Calc Estimated GFR Random Glucose Lactic Acid Calcium Total Bilirubin AST ALT Alkaline Phosphatase Total Protein Albumin Urine Color Urine Appearance Urine pH Ur Specific [place] Urine Protein Urine Glucose (UA) Urine Ketones Urine Blood Urine Nitrite Ur Leukocyte Esterase Urine RBC Urine WBC Urine WBC Clumps Ur Squamous Epith Cells Cancelled Ur Transition Epith Cell Cancelled Ur Renal Epithelial Cell Cancelled Calcium Oxalate Crystal Cancelled Leucine Crystals Cancelled Cystine Crystals Cancelled Tyrosine Crystals Cancelled Other Crystals Cancelled Urine Bacteria None Seen Cancelled Urine Parasites Cancelled Bilirubin Casts Cancelled Epithelial Casts Cancelled Fatty Casts Cancelled Hyaline Casts 0-2 Cancelled Granular Casts Cancelled Waxy Casts Cancelled Broad Casts Cancelled RBC Casts Cancelled WBC Casts Cancelled Other Casts Cancelled Urine Trichomonas Cancelled Urine Yeast Cancelled Imaging Radiologist's Impressions: Impressions Abdomen/Pelvis CT 12/03/23 06:25 IMPRESSION: Right urothelial thickening and enhancement with periureteric stranding. This may represent infection of the collecting system. Advise correlation with urinalysis. Assessment and Plan (1) Pyelonephritis of right kidney: Status: Acute Plan 43 yo F with Lupus presenting with R flank pain with urinary symptoms. She has failed treatment with outpatient antibitoics and will now be admitted for IV antibitoics for pyelonephritis. 1. UTI / Early R-sided pyelo In a patient with Lupus, who failed outpatient antibiotics. Given IV rocephin in the ED, will continue; follow cultures IVF 2. History of lupus reports not being on any medications outpatient f/u 3. Class 2 Obesity weight loss/diet/exercise encouraged Full Code DVT PPtx -- Lovenox Pt with underlying immunocompromising state (Lupus) with failure of outpatient treatment with progression from UTI to pyelo, therefore, expected to require 2-3 days of IV antibiotics. Hence, will be admitted as inpatient. Quality Stroke Does the patient have a stroke diagnosis?: No VTE Prior VTE?: No VTE Risk Level:: Medical - moderate - high VTE Device Contraindication: Treatment Not Indicated VTE Drug Contraindication: N/A - Med Ordered
[2023-12-03] MEDS: Enoxaparin Sodium 40 MG/0.4 ML SYRINGE SUBCUT (09:12)
[2023-12-03] MEDS: Lactated Ringers 1,000 ML 100 ML IVCONT ×2 (09:14→19:50)
--- NOTE | 2023-12-03 09:45 | PHA.MEDREC ---
Pharmacy Consult ? Medication Reconciliation Pharmacy has completed the medication reconciliation with pt, pt reports no home medications.
--- NOTE | 2023-12-03 18:14 | PC.NURSE ---
Pt had an overall good stay in overflow. Pt relaxed in bed during her time here. Pain requested pain medication and was given 1 dose of 15mg toradol. Pt and belonging were sent upstairs with pt after report was given to Eliel Cordova
[2023-12-04 03:27] VITALS: BP 114/61; PULSE 78; RESP 16; TEMP 36.6; O2SAT 96
[2023-12-04] MEDS: cefTRIAXone sodium 1 GM in 0.9 % Sodium Chloride 50 ML IV (05:22)
[2023-12-04 07:50] VITALS: BP 129/70; PULSE 79; RESP 18; TEMP 36.5; O2SAT 97
[2023-12-04] MEDS: Ketorolac Tromethamine 15 MG/ML VIAL IVPUSH (08:23)
[2023-12-04] MEDS: Enoxaparin Sodium 40 MG/0.4 ML SYRINGE SUBCUT (08:23)
[2023-12-04] MEDS: 0.9 % Sodium Chloride Flush 3 ML SYRINGE IVFLUSH (08:24)
[2023-12-04 08:56] LABS: Anion Gap 10 (12-20); Blood Urea Nitrogen 8 mg/dL (9-16); Calcium 8.7 mg/dL (8.4-10.2); Carbon Dioxide 23 mmol/L (22-29); Chloride 111 mmol/L (96-108); Creatinine Clr Calc Pharmacy 137.5; Estimated Glomerular Filt Rate > 60; Glucose Random 95 mg/dL (60-115); Potassium 4.3 mmol/L (3.3-5.1); Sodium 140 mmol/L (135-145)
--- NOTE | 2023-12-04 09:34 | P.DS_ITS ---
DS: Providers Provider Date of Service: 12/04/23 Date of admission: 12/03/23 08:55 Primary care physician: Lou Centeno NP DS: Diagnosis Discharge Diagnosis (1) Pyelonephritis of right kidney: Status: Acute DS: Summary Hospital Course Hospital Course: History of presenting illness: Date of Service: 12/03/23 Chief Complaint: Flank pain, chills The patient is a 43 year old female with a PMH of Lupus who presents to the ED, 3 days after her initial ED visit, for complaints of worsening R flank pain with associated chills, dysuria, urgency and frequency. 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 She was prescribed PO cefuroxime and analgesics. She was discharged home and reproted minimal improvement with her treatment regiment. She reports severe pain and chills the preceding 24 hours prior to admission. In the ED, the patient was mildly tachycardic. Her urine C&S from 3 days ago is showing gram negative rods. She has been given IVF, IV ceftriaxone and IV analgesics. She continues to exhibit pain and hence, will be admitted for further treatment. Hospital course: 43 yo F with Lupus presenting with R flank pain with urinary symptoms, failed treatment with outpatient antibitoics and admitted to medical floor for IV antibiotics for treatment of acute pyelonephritis, her initial urine culture from November 29 grew E coli sensitive to ceftriaxone repeat urine culture from December 02 showed no growth, blood cultures x2 are negative times 24 hours since patient remains afebrile with normal WBC count, with significant improvement in her urinary symptoms she is being discharged home on by mouth Ceftin 250 mg b.i.d. for 5 more days to finish a total 10 day course of antibiotics. History of lupus reports not being on any medications recommend outpatient PCP follow-up. Class 2 Obesity : weight loss/diet/exercise encouraged. Time Attestation Discharge Coordination Time (in mins): 35 Quality: Safe Use of Opioids Does Pt have an Active Cancer Diagnosis on the Problem List?: No Quality: Stroke Does the patient have a stroke diagnosis?: No Physical Exam Vital Signs: Vital Signs: Last Vital Signs Temp 97.7 F 12/04/23 07:50 Pulse 79 12/04/23 07:50 Resp 18 12/04/23 07:50 BP 129/70 12/04/23 07:50 Pulse Ox 97 12/04/23 07:50 O2 Del Method Room Air 12/04/23 07:50 BMI result Body Mass Index 39.0 Const: Other: Constitutional - Awake and Alert, No apparent distress Neck no JVD Cardiovascular - S1S2, RRR, No edema Respiratory - Normal lung expansion, Normal respiratory effort, No respiratory distress, CTA bilaterally Gastrointestinal - nontender bowel sounds audible - no CVA tenderness Extremities - no swelling Musculoskeletal - Normal inspection, normal ROM Skin - Warm/Dry Neurological - Alert & oriented x3, No focal deficit Psychological - Appropriate affect DS: Data Data Completed and Pending Labs on day of discharge: Laboratory Results - last 24 hr 12/04/23 08:12 Hold Purple Top SEE NOTE Sodium 140 Potassium 4.3 Chloride 111 H Carbon Dioxide 23 Anion Gap 10 L BUN 8 L Creatinine 0.60 Estim Creat Clear Calc 137.5 Estimated GFR > 60 Random Glucose 95 Calcium 8.7 Preliminary micro results at discharge 12/03/23 05:55 Blood Culture - Preliminary Blood - Venous No growth after 24 hours. 12/03/23 05:55 Blood Culture - Preliminary Blood - Venous No growth after 24 hours. Discharge Plan Discharge Anticipated Discharge Date/Time: 12/04/23 09:29 Patient Disposition: Home, Self-Care Discharge Diagnosis: Acute pyelonephritis Referrals: Lou Centeno NP [Primary Care Provider] - 1 Week Discharge Medications: New cefuroxime axetil 250 mg tablet 250 mg PO BID Qty: 10 0RF Discharge Orders: Discharge Order (Routine); Ordered 12/04/23 Ordered By: Chidi Liang Diet: Advance to usual diet Activity on Discharge: As tolerated Stand Alone Forms: Patient Portal Discharge page, Work/School Release Care Plan Goals: Drink plenty of fluids Take Ceftin 1 tablet twice daily for 5 more days for a total 10 day course of antibiotics Health Concerns: Lupus Plan of Treatment: Outpatient follow-up with primary care physician call for appointment Assessment: As above
--- NOTE | 2023-12-04 10:14 | MHC.CM.PN ---
p[t dcd home no servies
== END 2023-12-04 11:14 | disposition home or self-care (01) | DRG 463 ==
LOC: HO.ED 07:55 → HO.EDOVER 09:12 → HO.S3 15:40
PROVIDERS: Admitting Provider Family Medicine; Emergency Provider Emergency Medicine Emergency Medical Services; PCP Nurse Practitioner Family; Visit Provider Hospitalist
DX: N10 Acute pyelonephritis (principal); M32.9 Systemic lupus erythematosus, unspecified; E66.8 Other obesity; Z68.39 Body mass index [BMI] 39.0-39.9, adult
CPT/HCPCS: 36415; 74177; 80048; 80053; 81001; 83605; 85025; 87040; 87086; 99221; 99285; J0696; J1650; J1885; J2405; J7120; Q9967

== ENCOUNTER → 2023-12-03 01:46 | Outpatient (BNV) | payer MEDICAID, SELFPAY | PROVIDERS: Emergency Provider Emergency Medicine Emergency Medical Services; PCP Nurse Practitioner Family; Visit Provider Family Medicine | DX: M32.15 Tubulo-interstitial nephropathy in systemic lupus erythematosus (principal) | CPT/HCPCS: 99222; 99239 ==

== ENCOUNTER 2024-02-26 10:13 | Outpatient (AMB) | payer MEDICAID, SELFPAY ==
--- NOTE | 2024-02-26 10:49 | A.OFFVIS_ITS ---
Intake Visit Reasons: sle Intake Note: New patient, externally referred by [facility], presents to office today for SLE. Family history of Lupus. Joints affected: elbow, hand, knees Pain began approx: 1 month ago Has tried: fish oil and folic acid Advanced Manager Required: No Accompanied by: Self / Same As Patient Allergies No Known Allergies Allergy (Verified 02/26/24 11:02) Medication List - Last Reconciled 02/26/24 by Shana Mcleod MD No Known Home Meds HPI Comments Details: This is a 44-year-old female who presents for evaluation of SLE. No old records available to me. She states that she was diagnosed with lupus at age 13. She states that her lupus caused joint pains, rashes on her face, hair loss. Does not recall any organ involvement such as kidney, liver, heart or lung disease. She states that she was on hydroxychloroquine intermittently for years but she has not been taking it for the last few years. She could not tolerate it due to fatigue, GI upset, nausea. Today she is complaining of diffuse joint pain including hands, wrists, knees. Also complaining of hair loss, this has been chronic but progressive. Has not been evaluated by power washer. Denies any history of DVT/PE. She had 5 pregnancies in total, 2 miscarriages and 3 children. Her maternal aunt has SLE , mother with rheumatoid arthritis [facility] Medical History Screen for sexually transmitted diseases Cervical cancer screening Breast cancer screening Well woman exam with routine gynecological exam Lupus Surgical History Hx of emergency section Hx of tubal ligation Family History Maternal Aunt Lupus Mother Rheumatoid arthritis Social History Household Members: Spouse and Children Housing: Apartment Do you presently have visiting nurse or other home services: No Alcohol intake: never Patient Tobacco Use Status: Never used Tobacco Current occupational status: employed 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 [employer] Female Reproductive History Menstrual Total pregnancies: 5 Full term: 3 Ab spontaneous: 2 Review of Systems Musc Reports arthralgias and Reports stiffness Skin/Breast Reports alopecia and Reports rash Physical Exam Const General: cooperative, healthy appearing and comfortable Nutritional Appearance: obese morbidly obese Orientation/consciousness: patient oriented x3 Limitations: no limitations HEENT Head: Yes normocephalic and Yes atraumatic Mouth: moist mucous membranes Resp Effort & Inspection: normal respiratory effort and able to speak in complete sentences Auscultation: clear to auscultation bilaterally Cardio Rate: regular rate Skin Other: Significant Alopecia temporal areas bilaterally General skin exam: no rashes or lesions noted Neuro General: patient oriented x3 Extrem Other: Bilateral wrist tenderness and pain with full flexion No swollen joints Bilateral knee pain with full flexion Normal nailfold capillaroscopy Assessment & Plan Assessment & Plan (1) Lupus: Code(s): M32.9 - Systemic lupus erythematosus, unspecified Category: Medical Plan: This is a 44-year-old female who presents for evaluation of SLE.? No old records available to me.? She states that she was diagnosed with lupus at age 13.? She states that her lupus caused joint pains, rashes on her face, hair loss.? Does not recall any organ involvement such as kidney, liver, heart or lung disease.? She states that she was on hydroxychloroquine intermittently for years but she has not been taking it for the last few years.? She could not tolerate it due to fatigue, GI upset, nausea. 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 Check comprehensive serology to evaluate patient's disease activity. Follow-up in 4-6 weeks (2) Microcytic anemia: Code(s): D50.9 - Iron deficiency anemia, unspecified Category: Medical Plan: Check iron profile and celiac disease antibodies Plan I spent 47 minutes reviewing patient's chart, evaluating patient, ordering diagnostic workup, counseling patient and documenting in the chart Orders: Orders Anti DNA DS Antibody Today M32.9 - Systemic lupus erythematosus, unspecified Complement C4 Today M32.9 - Systemic lupus erythematosus, unspecified C Reactive Protein Today M32.9 - Systemic lupus erythematosus, unspecified Erythrocyte Sedimentation Rate Today M32.9 - Systemic lupus erythematosus, unspecified UA w Microscopic Today M32.9 - Systemic lupus erythematosus, unspecified Complete Blood Count Auto Diff Today M32.9 - Systemic lupus erythematosus, unspecified Hepatitis A,B,C Profile Today Z11.59 - Encounter for screening for other viral diseases T Spot TB Today Z11.7 - Encounter for testing for latent tuberculosis infection Rheumatoid Factor Today M25.50 - Pain in unspecified joint Cyclic Citrullinated Peptide Today M25.50 - Pain in unspecified joint Cardiolipin Antibodies Today D68.61 - Antiphospholipid syndrome Lupus Anticoagulant Panel Today D68.61 - Antiphospholipid syndrome Endomysial IgA rflx Titer Today D50.9 - Iron deficiency anemia, unspecified Immunoglobulin A Today D50.9 - Iron deficiency anemia, unspecified Transglutaminase Ab IgG Today D50.9 - Iron deficiency anemia, unspecified Ferritin Today D50.9 - Iron deficiency anemia, unspecified IRON PROFILE Today D50.9 - Iron deficiency anemia, unspecified JAH Reflex Titer and Pattern Today M32.9 - Systemic lupus erythematosus, unspecified Anti Extractable Nuclear Ag Today M32.9 - Systemic lupus erythematosus, unspecified Complement C3 Today M32.9 - Systemic lupus erythematosus, unspecified DNA Double Stranded-Crithidia Today M32.9 - Systemic lupus erythematosus, unspecified Protein Creatinine Ratio, Ur Today M32.9 - Systemic lupus erythematosus, unspecified Sjogren's Antibodies Today M32.9 - Systemic lupus erythematosus, unspecified Comprehensive Met. Panel Today M32.9 - Systemic lupus erythematosus, unspecified Beta-2 Glycoprotein Antibody Today D68.61 - Antiphospholipid syndrome Transferrin Today D50.9 - Iron deficiency anemia, unspecified Coding Level of Care Code New Pt Level 4 (41329) Diagnoses Lupus M32.9 Microcytic anemia D50.9
== END 2024-02-26 11:22 | disposition home or self-care (01) ==
PROVIDERS: PCP Nurse Practitioner Family; Referring Provider Nurse Practitioner Family; Visit Provider Student in an Organized Health Care Education/Training Program
DX: M32.9 Systemic lupus erythematosus, unspecified (principal); D50.9 Iron deficiency anemia, unspecified
CPT/HCPCS: 99204

== ENCOUNTER → 2024-02-26 10:13 | Outpatient (BNVA) | payer MEDICAID, SELFPAY | PROVIDERS: PCP Nurse Practitioner Family; Visit Provider Student in an Organized Health Care Education/Training Program ==

== ENCOUNTER 2024-02-26 11:29 | Outpatient (REF) | payer MEDICAID, SELFPAY ==
[2024-02-26 12:03] LABS: MANUAL DIFF FLAG NO
[2024-02-26 12:45] LABS: Basophils Percent Auto 0.2 % (0-2); Eosinophils Absolute Auto 0.1 X10*3/uL (0.0-0.4); Eosinophils Percent Auto 0.7 % (0-4); Hemoglobin 10.3 g/dl (12.0-16.0); Imm Gran Abs Auto 0.03 X10*3/uL (0.00-0.03); Imm Gran Pct Auto 0.4 % (0.0-0.4); Lymphocytes Absolute Auto 2.3 X10*3/uL (1.2-4.9); Lymphocytes Percent Auto 27.8 % (20-40); Mean Corpuscular HGB Conc 30.3 g/dl (31.0-35.0); Mean Corpuscular Hemoglobin 22.5 pg (27.0-33.0); Mean Corpuscular Volume 74.4 fL (80.0-98.0); Mean Platelet Volume 11.4 fL (9.4-12.3); Monocytes Absolute Auto 0.6 X10*3/uL (0.1-1.2); Monocytes Percent Auto 7.5 % (2-11); Neutrophils Absolute Auto 5.2 x10*3/uL (2.0-8.3); Neutrophils Percent Auto 63.4 % (45-73); Platelet Count 305 X10*3/uL (160-400); Red Blood Count 4.57 X10*6/uL (4.20-5.50); White Blood Count 8.1 X10*3/uL (4.8-10.8)
[2024-02-26 12:53] LABS: Appearance Urine Clear; Color Urine Yellow; Glucose Urine UA Negative (Negative); Leukocyte Esterase Urine Negative (Negative); Nitrite Urine Negative (Negative); Specific Gravity - Urine 1.025 (1.005-1.025); Urine Blood Negative (Negative); Urine Ketones Negative (Negative); Urine Protein Negative (Neg-Trace)
[2024-02-26 13:02] LABS: Bacteria Urine Trace (None Seen); Hyaline Casts Urine 0-2 /LPF (0-2); RBC Urine 0-2 /HPF (0-2); WBC Urine 0-5 /HPF (0-5)
[2024-02-26 13:31] LABS: Erythrocyte Sedimentation Rate 33 MM/HR (0-20)
[2024-02-26 13:34] LABS: Rheumatoid Factor < 13.0 IU/mL (<15.0)
[2024-02-26 13:36] LABS: Alanine Aminotransferase 26 U/L (0-31); Albumin Level 3.8 g/dL (3.5-5.0); Alkaline Phosphatase 69 U/L (39-117); Anion Gap 11 (12-20); Aspartate Amino Transferase 28 U/L (5-31); Bilirubin Total 0.3 mg/dL (0.0-1.0); Blood Urea Nitrogen 12 mg/dL (9-16); C Reactive Protein 1.01 mg/dL (< or = 0.50); Calcium 9.3 mg/dL (8.4-10.2); Carbon Dioxide 21 mmol/L (22-29); Chloride 110 mmol/L (96-108); Estimated Glomerular Filt Rate > 60; Glucose Random 101 mg/dL (60-115); Iron 36 mcg/dL (30-160); Percent Iron Saturation 12 % (15-50); Sodium 138 mmol/L (135-145); Total Iron Binding Capacity 296 mcg/dL (228-428); Total Protein 7.6 g/dL (6.5-8.0); Unsaturated Iron Binding 260 ug/dL
[2024-02-26 14:01] LABS: Creatinine Urine 110.77 mg/dL; Ferritin 20 ng/mL (10-250); Protein/Creatinine Ratio, Ur 0.07 (<0.2); Total Protein Urine Random 8 mg/dL (<12)
[2024-02-27 03:20] LABS: Syphilis Screen Nonreactive (Nonreactive)
[2024-02-27 03:33] LABS: HBsAGNum1 0.34 S/CO (0.00-0.99); HIV AB/AG Nonreactive (Nonreactive); HIV Num 1 0.07 S/CO (0.00-0.99); Hepatitis B Surface Antigen Negative (Negative); ~Hepatitis C Antibody Nonreactive (Nonreactive)
[2024-02-27 03:59] LABS: HBS Num1 > 1000.00 mIU/mL (0-7.99); HBc Num1 0.13 S/CO (0.00-0.79); HBsAGNum1 0.29 S/CO (0.00-0.99); Hepatitis A Antibody IgM 0.15 Index (0-0.79); Hepatitis B Core Antibody Nonreactive (Nonreactive); Hepatitis B Surface Antigen Negative (Negative); ~HepC Num1 0.09 S/CO (0.00-0.79); ~Hepatitis A Antibody IgM Nonreactive (Nonreactive); ~Hepatitis B Surface Antibody REACTIVE (Nonreactive); ~Hepatitis C Antibody Nonreactive (Nonreactive)
[2024-02-27 12:49] LABS: Complement C3 130 mg/dL (83-193)
[2024-02-27 18:43] LABS: Immunoglobulin A 419 mg/dL (47-310)
[2024-02-27 19:23] LABS: Transferrin 260 mg/dL (188-341)
[2024-02-27 19:59] LABS: Anti DNA DS Antibody 2 IU/mL; Antibody to SS-A Antigen <1.0 NEG AI (<1.0 NEG); Antibody to SS-B Antigen <1.0 NEG AI (<1.0 NEG); SM/Ribonucleoprotein Ab <1.0 NEG AI (<1.0 NEG); Smith Protein <1.0 NEG AI (<1.0 NEG)
[2024-02-27 20:03] LABS: Cardiolipin IgG Ab <2.0 GPL-U/mL; Cardiolipin IgM Ab 11.6 MPL-U/mL
[2024-02-27 20:09] LABS: Transglutaminase Ab IgG <1.0 U/mL
[2024-02-28 20:03] LABS: Cyclic Citrullinated Peptide <16 UNITS
[2024-02-29 07:54] LABS: TS Negative Control Passed; TS Panel A 0; TS Panel B 0; TS Positive Control Passed; TSpotTB Negative (Negative)
[2024-02-29 09:03] LABS: DRVVT Confirmation Negative (Negative); PTT (LAC) Screen 37 sec (<=40)
[2024-03-01 12:13] LABS: Endomysial IgA Antibody Negative (Negative)
[2024-03-01 16:33] LABS: Anti Nuclear Antibody Pattern Nuclear, Speckled; Anti Nuclear Antibody Screen POSITIVE (NEGATIVE); Anti Nuclear Antibody Titer 1:40 titer
[2024-03-02 14:13] LABS: DNAds, Crithidia Antibody Negative (Negative)
[2024-03-06 04:39] LABS: Beta-2 Glycoprotein IgA 22.8 U/mL (<20.0); Beta-2 Glycoprotein IgG 2.6 U/mL (<20.0); Beta-2 Glycoprotein IgM 17.9 U/mL (<20.0)
== END 2024-02-26 11:30 | disposition home or self-care (01) ==
LOC: HO.LAB 11:29
PROVIDERS: Advanced Practice Midwife; Visit Provider Student in an Organized Health Care Education/Training Program
DX: Z01.419 Encounter for gynecological examination (general) (routine) without abnormal findings (principal); M32.9 Systemic lupus erythematosus, unspecified; D68.61 Antiphospholipid syndrome; M25.50 Pain in unspecified joint; D50.9 Iron deficiency anemia, unspecified; Z12.39 Encounter for other screening for malignant neoplasm of breast; Z11.3 Encounter for screening for infections with a predominantly sexual mode of transmission; Z11.7 Encounter for testing for latent tuberculosis infection
CPT/HCPCS: 36415; 80053; 81001; 82570; 82728; 82784; 83540; 84156; 84466; 85025; 85597; 85598; 85613; 85652; 85730; 86038; 86039; 86140; 86146; 86147; 86160; 86200; 86225; 86231; 86235; 86255; 86364; 86431; 86481; 86704; 86706; 86709; 86780; 86803; 87340; 87389; 99202

== ENCOUNTER 2024-03-24 14:56 | Outpatient (AMB) | payer MEDICAID, SELFPAY ==
[2024-03-24 14:58] VITALS: BP 110/74; PULSE 103; BMI 42.1
--- NOTE | 2024-03-24 14:58 | MHC.OFFVIS ---
Vital Signs 03/24/24 14:58 Height 5 ft 3 in Weight 237 lb 10.533 oz BMI 42.1 BP 110/74 Blood Pressure Location Rt brachial Position Sitting Pulse 103 H Pulse Source Pulse Oximeter Intake Visit Reasons: SLE/cm Intake Note: Patient last seen 02/26/24 presents today for follow up and test results. Backup Administrator Required: No Accompanied by: Self / Same As Patient Allergies No Known Allergies Allergy (Verified 03/24/24 14:59) Medication List - Last Reconciled 03/24/24 by Shana Mcloed MD multivitamin 1 tab PO DAILY HPI Comments Details: Patient returns for follow-up after completion of her diagnostic workup. Continues to feel about the same Initial history: This is a 44-year-old female who presents for evaluation of SLE. No old records available to me. She states that she was diagnosed with lupus at age 13. She states that her lupus caused joint pains, rashes on her face, hair loss. Does not recall any organ involvement such as kidney, liver, heart or lung disease. She states that she was on hydroxychloroquine intermittently for years but she has not been taking it for the last few years. She could not tolerate it due to fatigue, GI upset, nausea. Today she is complaining of diffuse joint pain including hands, wrists, knees. Also complaining of hair loss, this has been chronic but progressive. Has not been evaluated by corporate tax preparer. Denies any history of DVT/PE. She had 5 pregnancies in total, 2 miscarriages and 3 children. Her maternal aunt has SLE , mother with rheumatoid arthritis [facility] Medical History Screen for sexually transmitted diseases Cervical cancer screening Breast cancer screening Well woman exam with routine gynecological exam Lupus Surgical History Hx of emergency section Hx of tubal ligation Family History Maternal Aunt Lupus Mother Rheumatoid arthritis Social History Household Members: Spouse and Children Housing: Apartment Do you presently have visiting nurse or other home services: No Alcohol intake: never Patient Tobacco Use Status: Never used Tobacco Current occupational status: employed 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 [employer] Female Reproductive History Menstrual Total pregnancies: 5 Full term: 3 Ab spontaneous: 2 Review of Systems Musc Reports arthralgias and Reports stiffness Skin/Breast Reports alopecia and Reports rash Physical Exam Vital Signs: Last Vital Signs Pulse 103 H 03/24/24 14:58 BP 110/74 03/24/24 14:58 BMI result Body Mass Index 42.1 Const General: cooperative, healthy appearing and comfortable Nutritional Appearance: obese morbidly obese Orientation/consciousness: patient oriented x3 Limitations: no limitations HEENT Head: Yes normocephalic and Yes atraumatic Mouth: moist mucous membranes Resp Effort & Inspection: normal respiratory effort and able to speak in complete sentences Auscultation: clear to auscultation bilaterally Cardio Rate: regular rate Skin Other: Significant Alopecia temporal areas bilaterally General skin exam: no rashes or lesions noted Neuro General: patient oriented x3 Extrem Other: Bilateral wrist tenderness and pain with full flexion No swollen joints Bilateral knee pain with full flexion Normal nailfold capillaroscopy Assessment & Plan Assessment & Plan (1) Lupus: Code(s): M32.9 - Systemic lupus erythematosus, unspecified Category: Medical Plan: This is a 44-year-old female who presents for evaluation of SLE.? No old records available to me.? She states that she was diagnosed with lupus at age 13.? She states that her lupus caused joint pains, rashes on her face, hair loss.? Does not recall any organ involvement such as kidney, liver, heart or lung disease.? She states that she was on hydroxychloroquine intermittently for years but she has not been taking it for the last few years.? She could not tolerate it due to fatigue, GI upset, nausea. Upon evaluation I do not see any SLE major organ involvement. Normal creatinine, normal LFTs, no leukopenia, no thrombocytopenia. No proteinuria. Patient's JAH is 1-40 at this time and she has borderline positive anti beta 2 glycoprotein IgA. There is no compelling positive serology for lupus at this time. Hydroxychloroquine can be initiated for mild symptoms such as arthralgias, hair loss, fatigue but patient could not tolerate it in the past. It does not look like patient is having any active alopecia. I do not think the benefits of adding any stronger DMARDs exceed the risks at this time. Advised patient to establish care with corporate tax preparer Will continue to monitor patient clinically. Discussed damonmersuzan. Advised patient to start taking turmeric regularly for a few weeks. Start vitamin-D supplementation Labs before next visit in 6 months Plan I spent 27 minutes reviewing patient's chart, evaluating patient, ordering diagnostic workup, counseling patient and documenting in the chart Orders: Orders Anti DNA DS Antibody 6 Months M32.9 - Systemic lupus erythematosus, unspecified C Reactive Protein 6 Months M32.9 - Systemic lupus erythematosus, unspecified DNA Double Stranded-Crithidia 6 Months M32.9 - Systemic lupus erythematosus, unspecified Erythrocyte Sedimentation Rate 6 Months M32.9 - Systemic lupus erythematosus, unspecified Protein Creatinine Ratio, Ur 6 Months M32.9 - Systemic lupus erythematosus, unspecified Comprehensive Met. Panel 6 Months M32.9 - Systemic lupus erythematosus, unspecified Complement C3 6 Months M32.9 - Systemic lupus erythematosus, unspecified Complement C4 6 Months M32.9 - Systemic lupus erythematosus, unspecified UA w Microscopic 6 Months M32.9 - Systemic lupus erythematosus, unspecified Complete Blood Count Auto Diff 6 Months M32.9 - Systemic lupus erythematosus, unspecified Coding Level of Care Code Est Pt Level 4 (90961) Diagnoses Lupus M32.9
== END 2024-03-24 15:18 | disposition home or self-care (01) ==
PROVIDERS: PCP Internal Medicine; Referring Provider Internal Medicine; Visit Provider Student in an Organized Health Care Education/Training Program
DX: M32.9 Systemic lupus erythematosus, unspecified (principal)
CPT/HCPCS: 99214

== ENCOUNTER → 2024-03-24 14:56 | Outpatient (BNVA) | payer MEDICAID, SELFPAY | PROVIDERS: PCP Internal Medicine; Visit Provider Student in an Organized Health Care Education/Training Program | DX: M32.9 Systemic lupus erythematosus, unspecified (principal) | CPT/HCPCS: 99212 ==

== ENCOUNTER 2024-07-29 14:40 | Outpatient (REF) | payer MEDICAID, SELFPAY ==
[2024-07-29 16:07] LABS: MANUAL DIFF FLAG NO
[2024-07-29 16:16] LABS: Appearance Urine Clear; Color Urine Yellow; Glucose Urine UA Negative (Negative); Leukocyte Esterase Urine Negative (Negative); Nitrite Urine Negative (Negative); Specific Gravity - Urine 1.015 (1.005-1.025); Urine Blood Negative (Negative); Urine Ketones Negative (Negative); Urine Protein Negative (Neg-Trace)
[2024-07-29 16:21] LABS: Basophils Percent Auto 0.3 % (0-2); Eosinophils Absolute Auto 0.1 X10*3/uL (0.0-0.4); Eosinophils Percent Auto 1.3 % (0-4); Hemoglobin 10.7 g/dl (12.0-16.0); Imm Gran Abs Auto 0.02 X10*3/uL (0.00-0.03); Imm Gran Pct Auto 0.3 % (0.0-0.4); Lymphocytes Absolute Auto 2.2 X10*3/uL (1.2-4.9); Lymphocytes Percent Auto 33.7 % (20-40); Mean Corpuscular HGB Conc 30.6 g/dl (31.0-35.0); Mean Corpuscular Hemoglobin 23.4 pg (27.0-33.0); Mean Corpuscular Volume 76.4 fL (80.0-98.0); Mean Platelet Volume 11.4 fL (9.4-12.3); Monocytes Absolute Auto 0.4 X10*3/uL (0.1-1.2); Monocytes Percent Auto 6.6 % (2-11); Neutrophils Absolute Auto 3.7 x10*3/uL (2.0-8.3); Neutrophils Percent Auto 57.8 % (45-73); Platelet Count 289 X10*3/uL (160-400); Red Blood Count 4.58 X10*6/uL (4.20-5.50); Red Cell Distribution Width 17.2 % (11.0-16.0); White Blood Count 6.4 X10*3/uL (4.8-10.8)
[2024-07-29 16:22] LABS: Bacteria Urine None Seen (None Seen); Hyaline Casts Urine 0-2 /LPF (0-2); RBC Urine 0-2 /HPF (0-2); WBC Urine 0-5 /HPF (0-5)
[2024-07-29 16:43] LABS: Alanine Aminotransferase 38 U/L (0-31); Albumin Level 3.7 g/dL (3.5-5.0); Alkaline Phosphatase 68 U/L (39-117); Anion Gap 13 (12-20); Aspartate Amino Transferase 42 U/L (5-31); Bilirubin Total 0.3 mg/dL (0.0-1.0); Blood Urea Nitrogen 9 mg/dL (9-16); C Reactive Protein 0.64 mg/dL (< or = 0.50); Calcium 9.4 mg/dL (8.4-10.2); Carbon Dioxide 24 mmol/L (22-29); Chloride 106 mmol/L (96-108); Estimated Glomerular Filt Rate > 60; Glucose Random 95 mg/dL (60-115); Iron 22 mcg/dL (30-160); Percent Iron Saturation 8 % (15-50); Potassium 3.8 mmol/L (3.3-5.1); Sodium 139 mmol/L (135-145); Total Iron Binding Capacity 269 mcg/dL (228-428); Total Protein 7.2 g/dL (6.5-8.0); Unsaturated Iron Binding 247 ug/dL
[2024-07-29 16:47] LABS: Creatinine Urine 93.85 mg/dL; Total Protein Urine Random < 7 mg/dL (<12)
[2024-07-29 16:58] LABS: Erythrocyte Sedimentation Rate 31 MM/HR (0-20)
[2024-07-30 11:58] LABS: Complement C3 125 mg/dL (83-193)
[2024-07-31 20:24] LABS: Anti DNA DS Antibody 3 IU/mL
[2024-08-05 06:03] LABS: DNAds, Crithidia Antibody Negative (Negative)
== END 2024-07-29 14:41 | disposition home or self-care (01) ==
LOC: HO.HHCL 14:40
PROVIDERS: Internal Medicine; Visit Provider Student in an Organized Health Care Education/Training Program
DX: D50.0 Iron deficiency anemia secondary to blood loss (chronic) (principal); M32.9 Systemic lupus erythematosus, unspecified
CPT/HCPCS: 36415; 80053; 81001; 82570; 83540; 84156; 85025; 85652; 86140; 86160; 86225; 86255

== ENCOUNTER 2024-10-17 14:05 | Outpatient (REF) | payer MEDICAID, SELFPAY ==
--- OUTSIDE RECORDS SUMMARY | 2024-10-17 15:50 | XMS_ITS | Clinical Summary ---
Author Organization [facility] Address [address] [place] [address] Care Team Providers Care Felt Finishing Supervisor Name Role Phone Unavailable Primary Care Provider Unavailabl e Social History Tobacco Use Types Packs/Day Years Used Date Smoking Tobacco: Never Assessed Sex and Gender Information Value Date Recorded Sex Assigned at Not on file Gender Identity Not on file Sexual Orientation Not on file Plan of Treatment Health Maintenance Due Date Last Done Comments Breast Cancer Screening 1981 DTaP,Tdap,and Td Vaccines (1 - Tdap) 02/19/2000 Hepatitis B Vaccines (1 of 3 - 19+ 3-dose series) 02/19/2000 Cervical Cancer Screening: P ap Smear 2002 Depression Screening 08/27/2022 HIV Screening 08/27/2022 Hepatitis C Screening 08/27/2022 Social Influencers of Health Screening 08/27/2022 COVID-19 Vaccine ( - 2023-2 5 season) 2024 Influenza Vaccine (#1) 2024 08/23/2016 HIB Vaccines Aged Out No longer eligi ble based on patient's age to complete this topic HPV Vaccines Aged Out No longer eligi ble based on patient's age to complete this topic Hepatitis A Vaccines Aged Out No long er eligible based on patient's age to complete this topic IPV Vaccines Aged Out No longer eligi ble based on patient's age to complete this topic MMR Vaccines Aged Out No longer eligi ble based on patient's age to complete this topic Meningococcal ACWY Vaccine Aged Out N o longer eligible based on patient's age to complete this topic Pneumococcal Vaccine: Pediat rics (0 to 5 Years) and At-Risk Patients (6 to 64 Years) Aged Out No longer eligi ble based on patient's age to complete this topic RSV Immunization Patients Un josselin 20 months Aged Out No longer eligible b ased on patient's age to complete this topic Varicella Vaccines Aged Out No longer eligible based on patient's age to complete this topic
--- OUTSIDE RECORDS SUMMARY | 2024-10-17 15:50 | XMS_ITS | Encounter Summary ---
Author Organization [employer] Address [address] [facility] [address] [place] [address] Care Team Providers Care Varnishing Machine Operator Name Role Phone Maddy Shah MD Primary Care Provide r Encounter Details Date Type Department Care Team (Late st Contact Info) Description 08/13/[address] [facility] [address] [place] [address] Urmila Taylor Social History Tobacco Use Types Packs/Day Years Used Date Smoking Tobacco: Never Passive Smoke Exposure: Never Smokeless Tobacco: Never Depression Answer Date Recorded Patient Health Questionnaire-9 Score 0 12/18/2022 Housing Stability Answer Date Recorded What is your housing situation today? I have jean carlosekaterina verdin 07/30/[address] you li ve. Do you have problems with any of the following? None of the above 07/30/2023 Food Insecurity Answer Date Recorded Within the past 12 months, y ou worried that your food would run out before you got money to buy more: Never True 07/30/2023 Within the past 12 months,th e food you bought just didn't last and you didn't have enough money to get more: Never True 02/2023 Transportation Answer Date Recorded In the past 12 months, has l ack of transportation kept you from medical appts, meetings, work or from getting things needed for daily living? No 07/30/2023 Utilities Answer Date Recorded In the past 12 months, has t he electric, gas, oil or water company threatened to shut off services in your home? No 07/30/2023 Depression Answer Date Recorded Patient Health Questionnaire-2 Score 0 12/18/2022 Comments Unknown Sex and Gender Information Value Date Recorded Sex Assigned at Female 07/24/2022 10:14 AM EDT Legal Sex Female 10:14 AM EDT Gender Identity Female 07/24/2022 10:14 AM EDT Sexual Orientation Choose not to disclose 2021 10:14 AM EDT documented as of this encounter Plan of Treatment Not on file documented as of this encounter Procedures Procedure Name Priority Date/Time Associated Diagnosis Comments PAP/HPV Routine 12/10/2018 documented in this encounter Results * Pap Smear (12/10/2018) Pap Negative for intraephithelial lesion or malignancy Negative for intraephithelial lesion or malignancy, Other HPV Undetected Historical Provider HEALTH MAINTENANCE Final Result documented in this encounter Visit Diagnoses Not on filedocumented in this encounter Additional Health Concerns Assessment Noted Time PHQ-9 Depression Total Score: 0 12/19/19 23 1:22 PM EDT documented as of this encounter Care Teams Varnishing Machine Operator Relationship Specialty Start Date End Date Maddy Shah MD [address] [place] [address] PCP - General Family Medicine 11/04/20 Linda Magana Log Rider 12/18/23 03/19/24 documented as of this encounter
--- OUTSIDE RECORDS SUMMARY | 2024-10-17 15:50 | XMS_ITS | Encounter Summary ---
Author Organization [employer] Address [address] [facility] 7[address] [place] [address] Care Team Providers Care Artificial Limb Maker Name Role Phone Maddy Shah MD Primary Care Provide r Encounter Details Date Type Department Care Team (Late st Contact Info) Description 07/01/2024 Telephone [facility] [address] [place], [place] [phone] Maddy Shah MD [address] [place], [place] [phone] Social History Tobacco Use Types Packs/Day Years [...] on file documented as of this encounter Visit Diagnoses Not on filedocumented in this encounter Additional Health Concerns Assessment Noted Time PHQ-9 Depression Total Score: 0 12/19/19 23 1:22 PM EDT documented as of this encounter Care Teams Artificial Limb Maker Relationship Specialty Start Date End Date Maddy Shah MD [address] [place] [address] PCP - General Family Medicine 11/04/20 documented as of this encounter
--- OUTSIDE RECORDS SUMMARY | 2024-10-17 15:51 | XMS_ITS | Encounter Summary ---
Author Organization [employer] Address [address] [facility] [address] [place] [address] Care Team Providers Care Rn Coronary Care Unit Name Role Phone Maddy Shah MD Primary Care Provide r Reason for Visit * Reason Onset Date Comments Chart Prep 09/19/2024 Encounter Details Date Type Department Care Team ([facility] st Contact Info) Description 09/19/2024 Telephone [facility] [address] [place] [address] Nelli Steele MA Chart Prep Social History Tobacco Use Types Packs/Day Years Used Date Smoking Tobacco: Never Passive Smoke Exposure: Never Smokeless Tobacco: Never Depression Answer Date Recorded Patient Health Questionnaire-9 Score 0 12/18/2022 Housing Stability Answer Date Recorded What is your housing situation today? I have jean carlos verdin 07/30/[address] you [...] AM EDT documented as of this encounter Miscellaneous Notes * Telephone Encounter - Nelli Steele MA - 09/19/2024 1:05 PM EST Chart Prep Labs: not done Images: not done Vaccines due: yes Referrals: Booked appt Screenings: mammogram , pap smear Overdue care gaps: Sbirt, PHQ-9, Oral Health, RIKA-7 documented in this encounter Plan of Treatment Not on file documented as of this encounter Visit Diagnoses Not on filedocumented in this encounter Additional Health Concerns Assessment Noted Time PHQ-9 Depression Total Score: 0 12/19/19 23 1:22 PM EDT documented as of this encounter Care Teams Rn Coronary Care Unit Relationship Specialty Start Date End Date Maddy Shah MD [address] [place] [address] PCP - General Family Medicine 11/04/20 documented as of this encounter
--- OUTSIDE RECORDS SUMMARY | 2024-10-17 15:51 | XMS_ITS | Encounter Summary ---
Author Organization [employer] Address [address] [facility] [address] [place] [address] Care Team Providers Care Automobile Accessories Salesperson Name Role Phone Maddy Shah MD Primary Care Provide r Reason for Visit * Reason Onset Date Comments Nurse Triage 10/17/2024 Encounter Details Date Type Department Care Team ([facility] st Contact Info) Description 10/17/2024 Telephone [facility] [address] [place], [place] [phone] Maddy Shah MD [address] [place] [address] Nurse Triage Social History Tobacco Use Types Packs/Day Years [...] encounter Miscellaneous Notes * Telephone Encounter - Brielle Hernandez RN - 10/17/2024 8:38 AM EST Called pt. Via [employer] pilot plant research technician [phone] [address]. Pt. States that she has been chest tightness x 3 days and some wheezing. No Hx. Of Asthma. Pt. Does have a cough and has been taking Mucinex with no relief. Unknown of fever. Protocol Used: Cough (Adult) Protocol-Based Disposition: Go to Office or Video Visit Now- Pt. Will go to [facility] walk in. Video visit offer not recorded Positive Triage Questions: * Mild difficulty breathing (e.g., minimal/no SOB at rest, SOB with walking, pulse < 100) and still present when not coughing * Wheezing is present * Severe coughing spells (e.g., whooping sound after coughing, vomiting after coughing) * Fever returns after gone for over 24 hours and symptoms worse or not improved * All higher-acuity triage questions were negative Care Advice Discussed: * Reassurance and Education - Cough * Cough Medicines * Coughing Spells * Prevent Dehydration * Avoid Tobacco Smoke * Humidifier * Fever Medicines * Telephone Encounter - Enrique Chopra - 10/17/2024 8:34 AM EST Symptom: Breathing Trouble Outcome: Talk to a nurse or provider within 15 minutes Reason: Trouble breathing through the mouth documented in this encounter Plan of Treatment Not on file documented as of this encounter Visit Diagnoses Not on filedocumented in this encounter Additional Health Concerns Assessment Noted Time PHQ-9 Depression Total Score: 0 12/19/19 23 1:22 PM EDT documented as of this encounter Care Teams Automobile Accessories Salesperson Relationship Specialty Start Date End Date Maddy Shah MD [address] [place] [address] PCP - General Family Medicine 11/04/20 documented as of this encounter
--- OUTSIDE RECORDS SUMMARY | 2024-10-17 15:51 | XMS_ITS | Encounter Summary ---
Author Organization [employer] Address [address] [facility] [address] [place] [address] Care Team Providers Care Natural Gas Engineer Name Role Phone Maddy Shah MD Primary Care Provide r Reason for Visit * Reason Comments Cough Encounter Details Date Type Department Care Team ([facility] st Contact Info) Description 10/17/2024 10:20 AM EST Office Visit [facility] [address] [place] [phone] Andres Coronado MD [address] [place], [place] [phone] Bronchitis (Primary Dx); Viral URI with cough Social History Tobacco Use Types Packs/Day Years [...] t he electric, gas, oil or water [employer] threatened to shut off services in your [...] AM EDT documented as of this encounter Last Filed Vital Signs Vital Sign Reading Time Taken Comments Blood Pressure 141/90 10/17/2024 10:24 AM EST Pulse 77 10/17/2024 10:24 AM EST Temperature 36.6 ??C (97.9 ??F) 10/17/2024 10:[address] Respiratory Rate 18 10/17/2024 10:24 AM EST Oxygen Saturation 97% 10/17/2024 10:24 AM EST Inhaled Oxygen Concentration - - Weight 107 kg (236 lb) 10/17/2024 10:24 AM EST Height - - Body Mass Index - - documented in this encounter Progress Notes * Andres Coronado MD - 10/17/2024 10:20 AM EST Subjective History was provided by the patient. Rosie Malloy is a 44 y.o. female who presents for evaluation of symptoms of a URI. Symptoms include cough, shortness of breath, runny nose, chills, and congestion. Onset of symptoms was 2 weeks ago, gradually improving since that time. Associated negative symptoms include nausea, vomiting, diarrhea, ear pain, and rash. Evaluation to date: none. Treatment to date: none Had fever ~5 days ago once. Objective Vitals: 10/17/24 1024 BP: (!) 141/90 BP Location: Left arm Patient Position: Sitting BP Cuff Size: Adult Pulse: 77 Resp: 18 Temp: 97.9 ??F (36.6 ??C) TempSrc: Temporal SpO2: 97% Weight: 236 lb (107 kg) Physical Exam Vitals reviewed. Constitutional: Appearance: Normal appearance. She is normal weight. HENT: Head: Normocephalic and atraumatic. Right Ear: Tympanic membrane, ear canal and external ear normal. Left Ear: Tympanic membrane, ear canal and external ear normal. Nose: Nose normal. No congestion or rhinorrhea. Mouth/Throat: Mouth: Mucous membranes are moist. Pharynx: Oropharynx is clear. Posterior oropharyngeal erythema present. No oropharyngeal exudate. Eyes: Extraocular Movements: Extraocular movements intact. Conjunctiva/sclera: Conjunctivae normal. Pupils: Pupils are equal, round, and reactive to light. Cardiovascular: Rate and Rhythm: Normal rate and regular rhythm. Heart sounds: Normal heart sounds. Pulmonary: Effort: Pulmonary effort is normal. No respiratory distress. Breath sounds: Wheezing (scattered end-expiratory wheezinig) present. No rhonchi or rales. Chest: Chest wall: No tenderness. Musculoskeletal: General: Normal range of motion. Cervical back: Normal range of motion and neck supple. Skin: General: Skin is warm and dry. Neurological: General: No focal deficit present. Mental Status: She is alert and oriented to person, place, and time. Mental status is at baseline. Psychiatric: Mood and Affect: Mood normal. Behavior: Behavior normal. Thought Content: Thought content normal. Judgment: Judgment normal. Office Visit on 10/17/2024 Component Date Value Ref Range Status Influenza A 10/17/2024 Negative Negative, Indeterminate Final Influenza B 10/17/2024 Negative Negative, Indeterminate Final Rapid COVID Ag 10/17/2024 Negative Final Rosie was seen today for cough. Diagnoses and all orders for this visit: Bronchitis (Primary) Viral URI with cough - Influenza A (ID NOW Rapid Molecular) - Influenza B (ID NOW Rapid Molecular) - POCT Rapid COVID Ag - albuterol 108 (90 Base) MCG/ACT inhaler; Inhale 2 puffs every 6 (six) hours if needed for wheezing for up to 10 days. - Respiratory Viral Panel PCR; Future Patient with a clinical presentation of viral bronchitis in a setting of resolving URI Gradually improving symptoms, but still with cough Not in respiratory distress, but has end-expiratory wheezing throughout the lung soares Speaking in full sentences O2 sat reassuring Rapid COVID-19 and Influenza A/B negative Will check Respiratory panel given duration of her symptoms Start Albuterol inhaler prn Potential adverse effects of the medications reviewed Discussed supportive care with ample hydration, sleep position and rest OTC supportive medications reviewed Droplet precautions discussed Advised to contact the clinic if no improvement of symptoms Indications for UC/ER use reviewed Work note provided documented in this encounter Plan of Treatment Scheduled Orders Name Type Priority Associated Diagnoses Orde r Schedule Respiratory Viral Panel PCR Lab Routine Viral URI with cough Expected: 10/17/2024 (Approximate), Expires: 10/17/2025 documented as of this encounter Procedures Procedure Name Priority Date/Time Associated Diagnosis Comments POCT INFLUENZA B (ID NOW RAPID MOLECULAR) Routine 10/17/2024 10:30 AM EST Viral URI with cough POCT INFLUENZA A (ID NOW RAPID MOLECULAR) Routine 10/17/2024 10:30 AM EST Viral URI with cough POCT RAPID COVID ANTIGEN Routine 10/17/2024 10:30 AM EST Viral URI with cough documented in this encounter Results * POCT Rapid COVID Ag (10/17/2024 10:30 AM EST) Pathologist [facility] Rapid COVID Ag Negative Swab 10/17/2024 10:3 0 AM EST Andres Coronado MD POINT OF CARE TEST ENTER/EDIT OR DERABLES Final Result * Influenza B (ID NOW Rapid Molecular) (10/17/2024 10:30 AM EST) [facility] Influenza B Negative Negative, Indeterminate [facility] Swab 10/17/2024 10:3 0 AM EST Andres Coronado MD POINT OF CARE TEST ENTER/EDIT OR DERABLES Final Result [facility] [address] [place] [phone] * Influenza A (ID NOW Rapid Molecular) (10/17/2024 10:30 AM EST) [facility] Influenza A Negative Negative, Indeterminate [facility] Swab 10/17/2024 10:3 0 AM EST us Andres Coronado MD POINT OF CARE TEST ENTER/EDIT OR DERABLES Final Result [facility] [address] [place] [phone] [phone] documented in this encounter Visit Diagnoses Diagnosis Bronchitis- Primary Bronchitis, not specified as acute or chronic Viral URI with cough documented in this encounter Additional Health Concerns Assessment Noted Time PHQ-9 Depression Total Score: 0 12/19/19 23 1:22 PM EDT documented as of this encounter Care Teams Natural Gas Engineer Relationship Specialty Start Date End Date Maddy Shah MD [address] [place] [phone] PCP - General Family Medicine 11/04/20 documented as of this encounter
--- OUTSIDE RECORDS SUMMARY | 2024-10-17 15:51 | XMS_ITS | Encounter Summary ---
Author Organization [employer] Address [address] [facility] [address] [place] [address] Care Team Providers Care Tile Designer Name Role Phone Maddy Shah MD Primary Care Provide r Reason for Visit * Reason Onset Date Comments No Show 09/22/2024 Encounter Details Date Type Department Care Team ([facility] Contact Info) Description 09/22/2024 Telephone [facility] [address] [place], [place] [phone] Maddy Shah MD [address] [place], [place] [phone] No Show Social History Tobacco Use Types Packs/Day Years [...] encounter Miscellaneous Notes * Telephone Encounter - Katherine Prater - 09/22/2024 2:42 PM EST Pt no showed to appt on 09/22/24 documented in this encounter Plan of Treatment Not on file documented as of this encounter Visit Diagnoses Not on filedocumented in this encounter Additional Health Concerns Assessment Noted Time PHQ-9 Depression Total Score: 0 12/19/19 23 1:22 PM EDT documented as of this encounter Care Teams Tile Designer Relationship Specialty Start Date End Date Maddy Shah MD [address] [place] [address] PCP - General Family Medicine 11/04/20 documented as of this encounter
--- OUTSIDE RECORDS SUMMARY | 2024-10-17 15:51 | XMS_ITS | Clinical Summary ---
Author Organization [facility] Address [address] [place] [address] [address] [place] [address] Care Team Providers Care Drug Abuse Program Coordinator Name Role Phone Maddy Shah MD Primary Care Provide r Allergies Active Allergy Reactions Criticality Noted Date Comments Ampicillin 09/14/2010 Other reaction(s): unspecified Penicillin V 09/14/2010 Other reaction(s): unspecified Vitamin E 05/16/2016 Other reaction(s): shoulder pain, numb; SOB, irreg Medications acetaminophen (Tylenol) 500 MG tablet take 1-2 tablet (1000MG) by oral route TID as needed; max. 6 tabs/24 hours Active ondansetron ODT (Zofran-ODT) 4 MG disintegrating tablet DISSOLVE 1 TABLET ON THE TONGUE EVERY 8 HOURS 3 Active oxyCODONE (Roxicodone) 5 MG immediate release tablet TAKE 1 TABLET BY MOUTH EVERY 6 HOURS NEEDED FOR SEVERE PAIN 3 Active cefuroxime (Ceftin) 250 MG tablet Take 250 mg by mouth 2 times daily. 4 Active cyclobenzaprine (Flexeril) 5 MG tablet TAKE 1 TO 2 TABLETS BY MOUTH AT BEDTIME NEEDED FOR MUSCLE SPASM 4 Active ibuprofen 600 MG tablet Take 1 tablet by mouth with breakfast and with evening meal. 4 Active phenazopyridine (Pyridium) 200 MG tablet Take 200 mg by mouth if needed in the morning, at noon, and at bedtime. 4 Active ferrous sulfate (Fe Tabs) 325 (65 Fe) MG EC tabletIndications: Iron deficiency anemia due to chronic blood loss Take 1 tablet (325 mg) by mouth every other day. Do not crush, chew, or split. 15 tablet 2 4 025 Active ascorbic acid (Vitamin C) 500 MG tabletIndications: Iron deficiency anemia due to chronic blood loss Take every other day with iron supplement 30 tablet 2 4 Active albuterol 108 (90 Base) MCG/ACT inhalerIndications :Viral URI with cough Inhale 2 puffs every 6 (six) hours if needed for wheezing for up to 10 days. 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 Iron deficiency anemia 06/23/2024 Assessment & Plan (06/23/2024 5:31 PM EDT): Iron supplements ordered with vitamin C I will continue to monitor her H & H Hx of abnormal cervical Papanicolaou smear 12/18 Dyspareunia, female 12/18/2022 Suprapubic pain 12/18/2022 Assessment & Plan (12/18/2022 4:06 PM EDT): I ordered U and culture and I will treat empirically with Macrobid in light of recent pyelonephritis hospitalization Pyelonephritis 12/18/2022 Obesity 12/07/2022 Pain in pelvis 12/07/2022 Systemic lupus erythematosus 03/03/2016 Assessment & Plan (06/23/2024 5:31 PM EDT): Continue to follow with specialist Encounters Date Type Department Care Team Description 10/17/2024 10:20 AM EST Office Visit [facility] [address] [place] [phone] Andres Coronado MD Bronchitis (Primary Dx); Viral URI with cough 10/17/2024 Telephone [facility] [address] [place] [phone] Maddy Shah MD Nurse Triage 09/22/2024 Telephone [facility] [address] [place] [address] Maddy Shah MD No Show 09/19/2024 Telephone [facility] [address] [place] [address] Nelli Steele MA Chart Prep 09/10/2024 Patient Outreach [facility] [address] [place] [phone] Maddy Shah MD Pre-visit Planning ([facility] screening completed on 12/06/2023) from Last 3 Months Immunizations Name Administration Dates Next Due DTP 01/27/1982,1981,1981 DTaP 02/21/1985,04/14/1983 Hep A, Adult 12/19/2012 Hep A, ped/adol, 2 dose 06/29/1999 Hep B, Adolescent or Pediatric 06/29/1999 Hep B, adult 01/07/2014,03/20/2013 IPV 04/14/1983, 2,1981,1980 Influenza injectable quadriv alent preservative free 09/20/2018 Influenza, Split (incl. onelia fied surface antigen) 06/16/2013 Influenza, seasonal, injecta ble, preservative free 08/23/2016 MMR 07/14/1993,12/01/1982 TD (adult), 2 Lf tetanus tox oid, preservative free, adsorbed 02/28/2006,07/14/1993 Tdap 07/19/2011 Social History Tobacco Use Types Packs/Day Years Used Date Smoking Tobacco: Never Passive Smoke Exposure: Never Smokeless Tobacco: Never Tobacco Cessation:Counseling Given: Not Answered Depression Answer Date Recorded Patient Health Questionnaire-9 [...] not to disclose 2021 10:14 AM EDT Last Filed Vital Signs Vital Sign Reading [...] - - Body Mass Index - - Plan of Treatment Health Maintenance Due Date Last Done Comments HIV Screening 1981 Alcohol/Substance Use Screening 1993 Family Planning (PISQ) 02/19/1996 Hepatitis C Screening 1999 Mammogram 2021 DTaP/Tdap/Td Vaccines (7 - Td or Tdap) 07/19/2021 07/19/2011, 02/28/2006, 07/14/1993, Additional history exists Cervical Cancer Screening 12/11/2023 HPV/Cotest 12/11/2023 12/10/2018 Pap Smear 12/11/2023 12/10/2018 Depression Screening 12/19/2023 12/18/2022, 12/19/19 Tobacco Screening 12/19/2023 12/18/2022 COVID-19 Vaccine ( season) 2024 Influenza Vaccine (#1) 2024 8, 08/23/2016, 06/16/2013 SDOH Screening 12/05/2024 12/06/2023 Lipid Panel 10/19/2026 10/19/2021 Zoster Vaccines (1 of 2) 2031 RSV Patients and Patients Aged 60 years or older (1 - 1-dose 75+ series) 02/19/2056 IPV Vaccines Completed 04/14/1983, 0502/1982, 1981, Additional history exists Hepatitis A Vaccines Completed 12/19/2012, 06/29/19 99 Hepatitis B Vaccines Completed 01/07/2014, 03/20/2013, 06/29/1999 HIB Vaccines Aged Out No longer eligi ble based on patient's age to complete this topic HPV Vaccines Aged Out No longer eligi ble based on patient's age to complete this topic Meningococcal Vaccine Aged Out No sirrael chauncey eligible based on patient's age to complete this topic Pneumococcal Vaccine: Pediatrics (0 to 5 Years) and At-Risk Patients (6 to 64 Years) Aged Out No longer eligible based on patient's age to complete this topic RSV under 20 months Aged Out No longe r eligible based on patient's age to complete this topic Rotavirus Vaccines Aged Out No longer eligible based on patient's age to complete this topic Procedures Procedure Name Priority Date/Time Associated Diagnosis Comments POCT RAPID COVID ANTIGEN Routine 10/17/2024 10:30 AM EST Viral URI with cough POCT INFLUENZA B (ID NOW RAPID MOLECULAR) Routine 10/17/2024 10:30 AM EST Viral URI with cough POCT INFLUENZA A (ID NOW RAPID MOLECULAR) Routine 10/17/2024 10:30 AM EST Viral URI with cough LIPID PANEL, STANDARD Routine 10/19/2021 8:49 AM EST HM PAP/HPV Routine 12/10/2018 from Last 3 Months or Most Recently Relevant to Health Maintenance Results * Influenza B (ID NOW Rapid Molecular) (10/17/2024 10:30 AM EST) [facility] Influenza B Negative Negative, Indeterminate [facility] Swab 10/17/2024 10:3 0 AM EST Andres Coronado MD POINT OF CARE TEST ENTER/EDIT OR DERABLES Final Result Performing Organization Address City/[facility]/ZIP Co de Phone Number [facility] [address] [place] [phone] * Influenza A (ID NOW Rapid Molecular) (10/17/2024 10:30 AM EST) [facility] Influenza A Negative Negative, Indeterminate [facility] Swab 10/17/2024 10:3 0 AM EST Andres Coronado MD POINT OF CARE TEST ENTER/EDIT OR DERABLES Final Result Performing Organization Address City/[facility] Co de Phone Number [facility] [address] [place] [phone] * POCT Rapid COVID Ag (10/17/2024 10:30 AM EST) [facility] Rapid COVID Ag Negative Swab 10/17/2024 10:3 0 AM EST Andres Coronado MD POINT OF CARE TEST ENTER/EDIT OR DERABLES Final Result * (ABNORMAL) LIPID PANEL, STANDARD (10/19/2021 8:49 AM EST) [facility] Chol/HDLC Ratio 3.8 <5.0 (calc) [facility] Cholesterol, Total 182 <200 mg/dL [facility] HDL Cholesterol 48(L) > OR = 50 mg/dL [facility] LDL Cholesterol 114(H) mg/dL (calc) [facility] Comment: Reference range: <100 ?? Desirable range <100 mg/dL for primary prevention; ?? <70 mg/dL for patients with CHD or diabetic patients ?? with > or = 2 CHD risk factors. ?? LDL-C is now calculated using the Olman-Cheung ?? calculation, which is a validated novel method providing ?? better accuracy than the Friedewald equation in the ?? estimation of LDL-C. ?? Olman CHACKO et al. REYNALDO. 2013;310(19): 9779-7859 ?? (http://education.TeacherTube/faq/HWA433) Non-HDL Cholesterol 134(H) <130 mg/dL (calc) [facility] Comment: For patients with diabetes plus 1 major ASCVD risk ?? factor, treating to a non-HDL-C goal of <100 mg/dL ?? (LDL-C of <70 mg/dL) is considered a therapeutic ?? option. Triglycerides 96 <150 mg/dL [facility] 10/19/2021 8:49 AM EST Maddy Gauthier MD LAB BLOOD ORDERABLES Final Result [facility]where [address] * Pap Smear (12/10/2018) Pap Negative for intraephithelial lesion or malignancy Negative for intraephithelial lesion or malignancy, Other HPV Undetected Historical Provider HEALTH MAINTENANCE Final Result from Last 3 Months or Most Recently Relevant to Health Maintenance [facility] Care Teams Drug Abuse Program Coordinator Relationship Specialty Start Date End Date Maddy Shah MD [address] [place] [phone] PCP - General Family Medicine 11/04/20
[2024-10-18 11:36] LABS: Adenovirus PCR Not Detected (Not Detect.); Bordetella parapertussis PCR Not Detected (Not Detect.); Bordetella pertussis PCR Not Detected (Not Detect.); Chlamydia pneumoniae PCR Not Detected (Not Detect.); Coronavirus 229E PCR Not Detected (Not Detect.); Coronavirus HKU1 PCR Not Detected (Not Detect.); Coronavirus NL63 PCR Not Detected (Not Detect.); Coronavirus OC43 PCR Not Detected (Not Detect.); Human metapneumovirus PCR Not Detected (Not Detect.); Influenza A PCR Not Detected (Not Detect.); Influenza B PCR Not Detected (Not Detect.); Mycoplasma pneumoniae PCR Not Detected (Not Detect.); Parainfluenza 1 PCR Not Detected (Not Detect.); Parainfluenza 2 PCR Not Detected (Not Detect.); Parainfluenza 3 PCR Not Detected (Not Detect.); Parainfluenza 4 PCR Not Detected (Not Detect.); RSV PCR Not Detected (Not Detect.); Rhino/Enterovirus PCR Not Detected (Not Detect.)
[2024-10-18 12:46] LABS: SARS-CoV-2 PCR Not Detected (Not Detect.)
== END 2024-10-17 14:06 | disposition home or self-care (01) ==
LOC: HO.HHCLNP 14:05
PROVIDERS: Visit Provider Family Medicine
DX: J06.9 Acute upper respiratory infection, unspecified (principal); Z11.52 Encounter for screening for COVID-19; Z13.83 Encounter for screening for respiratory disorder NEC
CPT/HCPCS: 87633

== ENCOUNTER 2024-12-22 14:25 | Outpatient (REF) | payer MEDICAID, SELFPAY ==
--- NOTE | ~2024-12-22 | XR_ITS ---
CLINICAL HISTORY: PAIN 3 view right ankle Comparison: None Findings: Bones intact. No dislocations. Calcaneal spurring. No ankle effusion. No radiopaque foreign body. IMPRESSION: 1. No acute findings. This document has been electronically signed by: Bella Coreas MD on 12/22/2024 15:54:15
--- NOTE | ~2024-12-22 | XR_ITS ---
EXAMINATION: XR KNEE 4 OR MORE VIEWS RIGHT HISTORY: Months of right knee pain after a fall COMPARISON: There are no prior studies available for comparison. FINDINGS: Six views of the right knee are submitted. Osseous mineralization is normal. There is no fracture or dislocation. There is moderate osteoarthritis of the medial and patellofemoral compartments and mild osteoarthritis of the lateral compartment, with joint space narrowing and osteophyte formation. There is a small suprapatellar joint effusion. XR/XR knee RT 4V IMPRESSION: Small joint effusion. Osteoarthritis as described. Electronically signed by: Kain Ordonez MD 12/22/2024 03:39 PM EDT
--- OUTSIDE RECORDS SUMMARY | 2024-12-22 16:20 | XMS_ITS | Clinical Summary ---
Author Organization [employer] [facility] ity Address [address] [place] [address] Care Team Providers Care Gang Drill Operator Name Role Phone Unavailable Primary Care Provider Unavailabl e Social History Tobacco Use Types Packs/Day Years Used Date Smoking Tobacco: Never Assessed Comments Unknown Sex and Gender Information Value Date Recorded Sex Assigned at Not on file Legal Sex Female 2:27 AM EST Gender Identity Not on file Sexual Orientation [...] patient's age to complete this topic Meningococcal B Vacine Aged Out No lo nger eligible based on patient's age to complete [...]
--- OUTSIDE RECORDS SUMMARY | 2024-12-22 16:20 | XMS_ITS | Encounter Summary ---
Author Organization [facility] [employer] Address [address] [facility] [address] [place] [address] Care Team Providers Care Home Economics Expert Name Role Phone Maddy Shah MD Primary Care Provide r Encounter Details Date Type Department Care Team (Late st Contact Info) Description 07/01/2024 Telephone [facility] [address] [place], [place] [phone] Maddy Shah MD [address] [place], [place] [phone] Social History Tobacco Use Types Packs/Day Years [...] documented as of this encounter Care Teams Home Economics Expert Relationship Specialty Start Date End Date Maddy Shah MD [address] [place] [phone] PCP - General Family Medicine 11/04/20 documented as of this encounter
--- OUTSIDE RECORDS SUMMARY | 2024-12-22 16:20 | XMS_ITS | Clinical Summary ---
Author Organization [employer] Address [address] [place] [address] [address] [place] [address] Care Team Providers Care Wireline Operator Name Role Phone Maddy Sahh MD Primary Care Provide r Allergies Active [...] TABLET ON THE TONGUE EVERY 8 HOURS 11/23/19 23 Active oxyCODONE (Roxicodone) 5 MG immediate release tablet TAKE 1 TABLET BY MOUTH EVERY 6 HOURS NEEDED FOR SEVERE PAIN 11/23/19 23 Active cefuroxime (Ceftin) 250 MG tablet Take 250 mg by mouth 2 times daily. 12/01/19 24 Active phenazopyridine (Pyridium) 200 MG tablet Take 200 mg by mouth if needed in the morning, at noon, and at bedtime. 12/01/19 24 Active ferrous sulfate (Fe Tabs) 325 (65 Fe) MG EC tabletIndications: Iron deficiency anemia due to chronic blood loss Take 1 tablet (325 mg) by mouth every other day. Do not crush, chew, or split. 15 tablet 2 06/23/20 24 025 Active ascorbic acid (Vitamin C) 500 MG tabletIndications: Iron deficiency anemia due to chronic blood loss Take every other day with iron supplement 30 tablet 2 06/23/20 24 Active albuterol 108 (90 Base) MCG/ACT inhalerIndications :Viral URI with cough Inhale 2 puffs every 6 (six) hours if needed for wheezing for up to 10 days. 18 g 10/17/19 25 Active cyclobenzaprine (Flexeril) 10 MG tablet Take 1 tablet (10 mg) by mouth 3 times daily for 10 days. 30 tablet 11/30/19 25 Active cyclobenzaprine (Flexeril) 5 MG tablet TAKE 1 TO 2 TABLETS BY MOUTH AT BEDTIME NEEDED FOR MUSCLE SPASM 04/23/20 24 025 Discontinu ed(Therapy completed) ibuprofen 600 MG tablet Take 1 tablet by mouth with breakfast and with evening meal. 04/21/20 24 025 Discontinu ed(Ineffec tive) celecoxib (CeleBREX) 200 MG capsule Take 1 capsule (200 mg) by mouth 2 times daily for 20 days. 40 capsule 11/30/19 25 025 Active Problems Problem Noted Date Diagnosed Date Metrorrhagia 06/23/2024 Assessment & Plan (06/23/2024 5:30 PM EDT): I will order US I will refer her to [facility] Iron deficiency anemia 06/23/2024 Assessment & Plan [...] Encounters Date Type Department Care Team Description 12/22/2024 Orders Only [facility] [address] [place] [phone] Name, MD Zan 12/05/2024 Population Health Risk Score [facility] ([facility]3) [address] [phone] Provider, Population Health Generic 11/29/2024 10:40 AM EST Office Visit [facility] [address] [address] Name, MD Zan Right knee pain, unspecified chronicity (Primary Dx); Right ankle pain, unspecified chronicity; Acute bilateral low back pain without sciatica 11/29/2024 Travel 11/20/2024 Telephone [facility] [address] [place] [phone] Maddy Shah MD Nurse Triage 10/17/2024 10:20 AM EST [facility] [address] [address] Andres Coronado MD Bronchitis (Primary Dx); Viral URI with cough 10/17/2024 Telephone [facility] [address] [place] [address] Maddy Shah MD Nurse Triage from Last 3 Months Immunizations Name Administration [...] Patient Health Questionnaire-2 Score 0 12/18/2022 Comments No Sex and Gender Information Value Date Recorded Sex Assigned at Female 07/24/2022 10:14 AM EDT Legal Sex Female 10:14 AM EDT Gender Identity Female 07/24/2022 10:14 AM EDT Sexual Orientation Choose not to disclose 2021 10:14 AM EDT Last Filed Vital Signs Vital Sign Reading Time Taken Comments Blood Pressure 143/84 11/29/2024 9:52 AM EST Pulse 91 11/29/2024 9:52 AM EST Temperature 36.1 ??C (97 ??F) 11/29/2024 9:52 AM EST Respiratory Rate 20 11/29/2024 9:52 AM EST Oxygen Saturation 99% 11/29/2024 9:52 AM EST Inhaled Oxygen Concentration - - Weight 106 kg (234 lb 8 oz) 11/29/2024 9:[address] Height 160 cm (5' 3 ) 11/29/2024 9:52 AM EST Body Mass Index 41.54 11/29/2024 9:52 AM EST Plan of Treatment Health Maintenance Due Date Last Done Comments HIV Screening 1981 Alcohol/Substance Use Screening 1993 Family Planning (PISQ) 02/19/1996 Hepatitis C Screening 1999 Mammogram 2021 DTaP/Tdap/Td Vaccines (7 - Td or Tdap) 07/19/2021 07/19/2011, 02/28/2006, 07/14/1993, Additional history exists Cervical Cancer Screening 12/11/2023 HPV/Cotest 12/11/2023 12/10/2018 Pap Smear 12/11/2023 12/10/2018 Depression Screening 12/19/2023 12/18/2022, 12/19/19 23 COVID-19 Vaccine ( season) 2024 Influenza Vaccine (#1) 2024 8, 08/23/2016, 06/16/2013 SDOH Screening 12/05/2024 12/06/2023 Tobacco Screening 11/29/2025 11/29/2024 Lipid Panel 10/19/2026 10/19/2021 Zoster Vaccines (1 of 2) 2031 RSV Patients and Patients Aged 60 years or older (1 - 1-dose 75+ series) 02/19/2056 IPV Vaccines Completed 04/14/1983, 02/1982, 1981, Additional history exists Hepatitis A Vaccines Completed 12/19/2012, 06/29/19 99 Hepatitis B Vaccines Completed 01/07/2014, 03/20/2013, 06/29/1999 HIB Vaccines Aged Out No longer eligi ble based on patient's age to complete this topic HPV Vaccines Aged Out No longer eligi ble based on patient's age to complete this topic Meningococcal Vaccine Aged Out No isrrael chauncey eligible based on patient's age to complete this topic Pneumococcal Vaccine: Pediatrics (0 to 5 Years) and At-Risk Patients (6 to 49) Years) Aged Out No longer eligible based on patient's age to complete this topic RSV under 20 months Aged Out No longe r eligible based on patient's age to complete this topic Rotavirus Vaccines Aged Out No longer eligible based on patient's age to complete this topic Procedures Procedure Name Priority Date/Time Associated Diagnosis Comments XR ANKLE 3+ VIEWS RIGHT Routine 12/22/2024 3:54 PM EDT XR KNEE 4+ VIEWS RIGHT Routine 12/22/2024 2:26 PM EDT Right knee pain, unspecified chronicity POCT RAPID COVID ANTIGEN Routine 10/17/2024 10:30 AM EST Viral URI with cough POCT INFLUENZA B (ID NOW RAPID MOLECULAR) Routine 10/17/2024 10:30 AM EST Viral URI with cough POCT INFLUENZA A (ID NOW RAPID MOLECULAR) Routine 10/17/2024 10:30 AM EST Viral URI with cough RESPIRATORY VIRAL PANEL PCR Routine 10/17/2024 12:00 AM EST Viral URI with cough LIPID PANEL, STANDARD Routine 10/19/2021 8:49 AM EST HM PAP/HPV Routine 12/10/2018 from Last 3 Months or Most Recently Relevant to Health Maintenance Results * XR Ankle 3+ Views Right (12/22/2024 3:54 PM EDT) Anatomical Region Laterality Modality Lower Extremities, Ankle Right Radiogr aphic Imaging 12/22/2024 3:54 PM EDT Narrative 12/22/2024 3:55 PM EDT ?[facility] ?[address] ?[place] [address] ?XRay Report ? Signed ? Patient: Malloy,Rosie ?MR#: [id number] ? : 1980 ?Acct:[id number] ? Age/Sex: 44 / F ?ADM Date: 03/31/25 ? Loc: HO.HHCX ? Attending Dr: Zan Hernández MD ? Ordering Physician: Name,Zan CUMMINGS ?? Date of Service: 12/22/24 ?? Procedure(s): XR ankle RT min 3V ?? Accession Number(s): [id number] ? cc: Name,Zan CUMMINGS ? CLINICAL HISTORY: PAIN ? 3 view right ankle ? Comparison: None ? Findings: ?? Bones intact. No dislocations. ?? Calcaneal spurring. ?? No ankle effusion. ?? No radiopaque foreign body. ? IMPRESSION: ?? 1. No acute findings. ? This document has been electronically signed by: Bella Coreas MD on ?? 12/22/2024 15:54:15 ? Dictated By: ?Bella Coreas MD ? Signed By: ?<Electronically signed by Bella Coreas MD in OV> ? 12/22/24 1555 ? DD/ 1554 ? TD/TT: 12/22/24 1554 ? Corporate Director: ? Procedure Note Donotlissyinterpreter, Image - 12/22/[address] [address] XRay Report Signed Patient: Kiana Malloy#: [id number] : 1980Acct:[id number] Age/Sex: 44 / FADM Date: 12/22/24 Loc: HO.HHCX Attending Dr: Zan Hernández MD Ordering Physician: Zan Hernández MD Date of Service: 12/22/24 Procedure(s): XR ankle RT min 3V Accession Number(s): [id number] cc: Zan Hernández MD CLINICAL HISTORY: PAIN 3 view right ankle Comparison: None Findings: Bones intact. No dislocations. Calcaneal spurring. No ankle effusion. No radiopaque foreign body. IMPRESSION: 1. No acute findings. This document has been electronically signed by: Bella Coreas MD on 12/22/2024 15:54:15 Dictated By: Bella Coreas MD Signed By: <Electronically signed by Bella Coreas MD in OV> 12/22/245 DD/ 53 TD/TT: 12/22/241553 Corporate Director: Zan Hernández MD IMG XR PROCEDURES Final Result * XR Knee 4+ Views Right (12/22/2024 2:26 PM EDT) Anatomical Region Laterality Modality Lower Extremities, Knee Right Radiogra phic Imaging 12/22/2024 2:26 PM EDT Narrative 12/22/2024 3:42 PM EDT ?[facility] ?[address] ?[place] [address] ?XRay Report ? Signed ? Patient: Malloy,Rosie ?MR#: [id number] ? : 1980 ?Acct:[id number] ? Age/Sex: 44 / F ?ADM Date: 12/22/24 ? Loc: HO.HHCX ? Attending Dr: Zan Hernández MD ? Ordering Physician: Zan Hernández MD ?? Date of Service: 12/22/24 ?? Procedure(s): XR knee RT 4V ?? Accession Number(s): [id number] ? cc: Zan Hernández MD ? EXAMINATION: ??XR KNEE 4 OR MORE VIEWS RIGHT ? HISTORY: Months of right knee pain after a fall ? COMPARISON: There are no prior studies available for comparison. ? FINDINGS: ? Six views of the right knee are submitted. ??Osseous mineralization is ?? normal. ??There is no fracture or dislocation. ??There is moderate ?? osteoarthritis of the medial and patellofemoral compartments and mild ?? osteoarthritis of the lateral compartment, with joint space narrowing ?? and osteophyte formation. ??There is a small suprapatellar joint ?? effusion. ? XR/XR knee RT 4V ?? IMPRESSION: ? Small joint effusion. Osteoarthritis as described. ? Electronically signed by: ??Kain Ordonez MD ??12/22/2024 03:39 PM EDT ?? RP ? Dictated By: ?Kain Ordonez MD ? Signed By: ?<Electronically signed by Kain Ordonez MD in OV> ?12/22/24 1539 ? DD/ 1426 ? TD/TT: 12/22/24 1430 ? Corporate Director: ? Procedure Note Arvind Burns - 12/22/[address] [address] XRay Report Signed Patient: Kiana Malloy#: [id number] : 1980Acct:[id number] Age/Sex: 44 / FADM Date: 12/22/24 Loc: HO.HHCX Attending Dr: Zan Hernández MD Ordering Physician: Zan Hernández MD Date of Service: 12/22/24 Procedure(s): XR knee RT 4V Accession Number(s): [id number] cc: Zan Hernández MD EXAMINATION: XR KNEE 4 OR MORE VIEWS RIGHT HISTORY: Months of right knee pain after a fall COMPARISON: There are no prior studies available for comparison. FINDINGS: Six views of the right knee are submitted. Osseous mineralization is normal. There is no fracture or dislocation. There is moderate osteoarthritis of the medial and patellofemoral compartments and mild osteoarthritis of the lateral compartment, with joint space narrowing and osteophyte formation. There is a small suprapatellar joint effusion. XR/XR knee RT 4V IMPRESSION: Small joint effusion. Osteoarthritis as described. Electronically signed by: Kain Ordonez MD 12/22/2024 03:39 PM EDT RP Dictated By: Kain Ordonez MD Signed By: <Electronically signed by Kain Ordonez MD in OV> 12/22/24 1539 DD/ 1426 TD/TT: 12/22/24 1430 Corporate Director: Zan Hernández MD IMG XR PROCEDURES Final Result * Influenza B (ID NOW Rapid Molecular) (10/17/2024 10:30 AM EST) Pathologist [facility] Influenza B Negative Negative, Indeterminate [facility] Swab 10/17/2024 10:3 0 AM EST Andres Coronaod MD POINT OF CARE TEST ENTER/EDIT OR DERABLES Final Result [facility] [address] [place] [phone] * Influenza A (ID NOW Rapid Molecular) (10/17/2024 10:30 AM EST) Influenza A Negative Negative, Indeterminate [facility] Swab 10/17/2024 10:3 0 AM EST Andres Coronado MD POINT OF CARE TEST ENTER/EDIT OR DERABLES Final Result [facility] [address] [place] [address] [phone] * POCT Rapid COVID Ag (10/17/2024 10:30 AM EST) [facility] Rapid COVID Ag Negative Swab 10/17/2024 10:3 0 AM EST Andres Coronado MD POINT OF CARE TEST ENTER/EDIT OR DERABLES Final Result * Respiratory Viral Panel PCR (10/17/2024 12:00 AM EST) [facility] Adenovirus PCR Not Detected Not Detect. [facility] Bordetella pertussis PCR Not Detected Not Detect. [facility] Comment:Interpret results wi th caution. If B. pertussis isspecifically suspected, additional testing using analternate method is recommended. Bordetella parapertussis PCR Not Detected Not Detect. [facility] Chlamydia pneumoniae PCR Not Detected Not Detect. [facility] Coronavirus 229E PCR Not Detected Not Detect. [facility] Coronavirus HKU1 PCR Not Detected Not Detect. [facility] Coronavirus NL63 PCR Not Detected Not Detect. [facility] Coronavirus OC43 PCR Not Detected Not Detect. [facility] SARS-CoV-2 PCR Not Detected Not Detect. [facility] Comment:SARS-CoV-2 not detec gurjit by real-time RT-PCR.Note: If clinical suspicion for Sars-CoV-2 is high, continueto maintain precautions and consider repeat testing.Test results should be interpreted in the context ofclinical findings and other laboratory data.Rare polymorphisms exist that could lead to false-negativeor false-positive results. If results do not match theclinical findings, additional testing should be considered.Results reported to [facility].This test has been authorized by the FDA under the EmergencyUse Authorization (EUA) for use by authorized laboratories. Influenza A PCR Not Detected Not Detect. [facility] Influenza B PCR Not Detected Not Detect. [facility] Human metapneumovirus PCR Not Detected Not Detect. [facility] Rhino/Enterovirus PCR Not Detected Not Detect. [facility] Mycoplasma pneumoniae PCR Not Detected Not Detect. [facility] Parainfluenza 1 PCR Not Detected Not Detect. [facility] Parainfluenza 2 PCR Not Detected Not Detect. [facility] Parainfluenza 3 PCR Not Detected Not Detect. [facility] Parainfluenza 4 PCR Not Detected Not Detect. [facility] RSV PCR Not Detected Not Detect. [facility] Resp Panel NA Note See Note H [facility] Comment:All results must be correlated with clinical findings.Negative results should not be used as the sole basis fordiagnosis, treatment, or other management decisions.A negative result does not exclude the possibility of viralor bacterial infection. Negative results may occur from thepresence of sequence variants in the region targeted by theassay, the presence of inhibitors, an infection caused by anorganism not detected by the panel, or lower respiratorytract infections that are not detected by a nasopharyngealswab specimen. Test results may also be affected byconcurrent antiviral/antibacterial therapy or levels oforganism in the specimen that are below the limit ofdetection for this test.This assay is performed by Multiplexed PCR, utilizing [employer]. 10/17/2024 10/17/2024 us Andres Coronado MD LAB BLOOD ORDERABLES Final Resul t [facility] [address] [place] [phone] [phone] * (ABNORMAL) LIPID PANEL, STANDARD (10/19/2021 8:49 AM EST) Chol/HDLC Ratio 3.8 <5.0 (calc) [facility] Cholesterol, Total 182 <200 mg/dL [...] ?? LDL-C is now calculated using the José Miguel ?? calculation, which is a validated novel method providing ?? better accuracy than the Friedewald equation in the ?? estimation of LDL-C. ?? Olman CHACKO et al. REYNALDO. 2013;310(19): 1125-6571 ?? (http://[facility].NCLC/faq/NSU093) Non-HDL Cholesterol 134(H) <130 mg/dL (calc) [facility] Comment: For patients with diabetes plus 1 major ASCVD risk ?? factor, treating to a non-HDL-C goal of <100 mg/dL ?? (LDL-C of <70 mg/dL) is considered a therapeutic ?? option. Triglycerides 96 <150 mg/dL [facility] 10/19/2021 8:49 AM EST Maddy Gauthier MD LAB BLOOD ORDERABLES Final Result [facility] [address] * Pap Smear (12/10/2018) Pap Negative for intraephithelial lesion or malignancy Negative for intraephithelial lesion or malignancy, Other HPV Undetected Historical Provider HEALTH MAINTENANCE Final Result from Last 3 Months or Most Recently Relevant to Health Maintenance Insurance [employer] Care Teams Wireline Operator Relationship Specialty Start Date End Date Maddy Shah MD [address] [place] [phone] PCP - General Family Medicine 11/04/20
--- OUTSIDE RECORDS SUMMARY | 2024-12-22 16:20 | XMS_ITS | Encounter Summary ---
Author Organization [employer] Address [address] [facility] [address] [place] [address] Care Team Providers Care Mellowing Machine Operator Name Role Phone Maddy Shah MD Primary Care Provide r Encounter Details Date Type Department Care Team (Late st Contact Info) Description 12/22/2024 Orders Only [facility] [address] [place], [place] [phone] Name, MD Zan [address] [place] [address] Social History Tobacco Use Types Packs/Day Years [...] VIEWS RIGHT Routine 12/22/2024 3:54 PM EDT documented in this encounter Results * XR Ankle 3+ Views Right (12/22/2024 3:54 PM EDT) Anatomical Region Laterality Modality Lower Extremities, Ankle Right Radiogr aphic Imaging 12/22/2024 3:54 PM EDT Narrative 12/22/2024 3:55 PM EDT ?[facility] ?[address] ?[place] [address] ?XRay Report ? Signed ? Patient: Rosie Malloy ?MR#: [id number] ? : 1980 ?Acct:[id number] ? Age/Sex: 44 / F ?ADM Date: 12/22/24 ? Loc: HO.HHCX ? Attending Dr: Zan Hernández MD ? Ordering Physician: NameZan MD ?? Date of Service: 12/22/24 ?? Procedure(s): XR ankle RT min 3V ?? Accession Number(s): [id number] ? cc: Zan Hernández MD ? CLINICAL HISTORY: PAIN ? 3 view [...] DD/ 1554 ? TD/TT: 12/22/24 1554 ? Concrete Swimming Pool Installer: ? Procedure Note Donotuseinterpreter, Image - 12/22/2024 [facility] [address] [place] [address] XRay Report Signed Patient: Kiana Malloy#: [id number] : 1980Acct:[id number] Age/Sex: 44 / FADM Date: 12/22/24 [facility]: Zan Hernández MD Ordering Physician: Zan Hernández MD Date of Service: 12/22/24 Procedure(s): XR ankle RT min 3V Accession Number(s): [id number] cc: Zan Hernández MD CLINICAL HISTORY: PAIN 3 view right ankle Comparison: None Findings: Bones intact. No dislocations. Calcaneal spurring. No ankle effusion. No radiopaque foreign body. IMPRESSION: 1. No acute findings. This document has been electronically signed by: Bella Coreas MD on 12/22/2024 15:54:15 Dictated By: Bella Coreas MD Signed By: <Electronically signed by Bella Coreas MD in OV> 12/22/24 1555 DD/ 1554 TD/TT: 12/22/24 1554 Concrete Swimming Pool Installer: Zan Hernández MD IMG XR PROCEDURES Final Result documented in this encounter Visit Diagnoses Not on filedocumented in this encounter Additional Health Concerns Assessment Noted Time PHQ-9 Depression Total Score: 0 12/19/19 23 1:22 PM EDT documented as of this encounter Care Teams Mellowing Machine Operator Relationship Specialty Start Date End Date Maddy Shah MD [address] [place] [phone] PCP - General Family Medicine 11/04/20 documented as of this encounter
--- OUTSIDE RECORDS SUMMARY | 2024-12-22 16:20 | XMS_ITS | Encounter Summary ---
Author Organization [employer] Address [address] [facility] [address] [place] [address] Care Team Providers Care Firearms Inspector Name Role Phone Maddy Shah MD Primary Care Provide r Encounter Details Date Type Department Care Team (Late st Contact Info) Description 08/13/2023 Abstract [facility] [address] [place] [address] Urmila aTylor Social History Tobacco Use Types Packs/Day Years [...] documented as of this encounter Care Teams Firearms Inspector Relationship Specialty Start Date End Date Maddy Shah MD [address] [place] [address] PCP - General Family Medicine 11/04/20 Linda Magana Therapist Respiratory 12/18/23 03/19/24 documented as of this encounter
== END 2024-12-22 14:26 | disposition home or self-care (01) ==
LOC: HO.HHCX 14:25
PROVIDERS: Visit Provider Internal Medicine Geriatric Medicine
DX: M25.561 Pain in right knee (principal); M25.571 Pain in right ankle and joints of right foot
CPT/HCPCS: 73564; 73610

== ENCOUNTER → 2024-12-22 14:26 | Outpatient (BNV) | payer MEDICAID, SELFPAY | PROVIDERS: Visit Provider Radiology Diagnostic Radiology | DX: M25.461 Effusion, right knee (principal); M17.11 Unilateral primary osteoarthritis, right knee; M25.571 Pain in right ankle and joints of right foot | CPT/HCPCS: 73564; 73610 ==

== ENCOUNTER 2025-01-15 16:09 | Outpatient (REF) | payer MEDICAID, SELFPAY ==
[2025-01-15 16:35] LABS: MANUAL DIFF FLAG NO
[2025-01-15 16:56] LABS: Basophils Percent Auto 0.3 % (0-2); Eosinophils Absolute Auto 0.1 X10*3/uL (0.0-0.4); Eosinophils Percent Auto 1.1 % (0-4); Hematocrit 32.7 % (37.0-47.0); Hemoglobin 10.1 g/dl (12.0-16.0); Imm Gran Abs Auto 0.02 X10*3/uL (0.00-0.03); Imm Gran Pct Auto 0.3 % (0.0-0.4); Lymphocytes Absolute Auto 2.4 X10*3/uL (1.2-4.9); Lymphocytes Percent Auto 32.3 % (20-40); Mean Corpuscular HGB Conc 30.9 g/dl (31.0-35.0); Mean Corpuscular Hemoglobin 23.4 pg (27.0-33.0); Mean Corpuscular Volume 75.9 fL (80.0-98.0); Mean Platelet Volume 11.3 fL (9.4-12.3); Monocytes Absolute Auto 0.6 X10*3/uL (0.1-1.2); Monocytes Percent Auto 8.2 % (2-11); Neutrophils Absolute Auto 4.3 x10*3/uL (2.0-8.3); Neutrophils Percent Auto 57.8 % (45-73); Platelet Count 280 X10*3/uL (160-400); Red Blood Count 4.31 X10*6/uL (4.20-5.50); Red Cell Distribution Width 16.3 % (11.0-16.0); White Blood Count 7.4 X10*3/uL (4.8-10.8)
[2025-01-15 17:19] LABS: Alanine Aminotransferase 53 U/L (0-31); Albumin Level 3.7 g/dL (3.5-5.0); Alkaline Phosphatase 71 U/L (39-117); Anion Gap 9 (12-20); Aspartate Amino Transferase 48 U/L (5-31); Bilirubin Total 0.3 mg/dL (0.0-1.0); Blood Urea Nitrogen 9 mg/dL (9-16); C Reactive Protein 0.69 mg/dL (< or = 0.50); Carbon Dioxide 25 mmol/L (22-29); Chloride 106 mmol/L (96-108); Estimated Glomerular Filt Rate > 60; Glucose Random 86 mg/dL (60-115); Potassium 4.1 mmol/L (3.3-5.1); Sodium 136 mmol/L (135-145); Total Protein 7.5 g/dL (6.5-8.0)
[2025-01-15 18:10] LABS: Erythrocyte Sedimentation Rate 48 MM/HR (0-20)
--- OUTSIDE RECORDS SUMMARY | 2025-01-15 18:35 | XMS_ITS | Encounter Summary ---
Author Organization [facility] Address [address] [place] [address] Care Team Providers Care Leadership Development Manager Name Role Phone Maddy Shah MD Primary Care Provide r Reason for Referral * Consultation (Routine) - Pending Review Specialty Diagnoses / Procedures Referred By Zafar joshi Referred To Contact Dermatology Diagnoses Systemic lupus erythematosus, unspecified SLE type, unspecified organ involvement status (CMS/HCC) Hair loss Maddy Shha MD [address] [place] [address] Phone: tel: fax: Referral ID Status Reason Start Date Expiration Date Visits Requested Visits Authorized [id number] Pending Review Specialty Services Required 01/15/2025 01/15/2026 1 1 * Imaging (Routine) - Pending Review Specialty Diagnoses / Procedures Referred By Zafar joshi Referred To Contact Radiology Diagnoses Encounter for screening mammogram for malignant neoplasm of breast Procedures BI Mammogram Screening Tomosynthesis Bilateral Maddy Shah MD [address] [place] [address] Phone: tel: fax: Referral ID Status Reason Start Date Expiration Date V isits Requested Visits Authorized [id number] Pending Review 01/15/2025 01/15/2026 1 1 Encounter Details Date Type Department Care Team ([facility] st Contact Info) Description 01/15/2025 3:15 PM EDT Office Visit [facility] [address] [place] [address] Maddy Shah MD [address] [place] [address] Systemic lupus erythematosus, unspecified SLE type, unspecified organ involvement status (CMS/HCC) (Primary Dx); Iron deficiency anemia due to chronic blood loss; Polyarthralgia; Encounter for screening mammogram for malignant neoplasm of breast; Hair loss Social History Tobacco Use Types Packs/Day Years Used Date Smoking Tobacco: Never Passive Smoke Exposure: Never Smokeless Tobacco: Never Alcohol Use Standard Drinks/Week Comments Never 0 (1 standard drink = 0.6 oz pur e alcohol) Depression Answer Date Recorded Patient Health Questionnaire-9 Score 0 01/15/2025 Patient Health Questionnaire-9 Score 0 01/15/2025 Last PHQ-9: Questionnaire Data Not on file 0 01/15/2025 Housing Stability Answer Date Recorded What is your housing situation today? I have jean carlos verdin 01/15/[address] you li ve. Do you have problems with any of the following? None of the above 01/15/2025 Food Insecurity Answer Date Recorded Within the past 12 months, y ou worried that your food would run out before you got money to buy more: Never True 01/15/2025 Within the past 12 months,th e food you bought just didn't last and you didn't have enough money to get more: Never True Transportation Answer Date Recorded In the past 12 months, has l ack of transportation kept you from medical appts, meetings, work or from getting things needed for daily living? No 01/15/2025 Utilities Answer Date Recorded In the past 12 months, has t he electric, gas, oil or water company threatened to shut off services in your home? No 01/15/2025 Depression Answer Date Recorded Patient Health Questionnaire-2 Score 0 01/15/2025 Internet Access Answer Date Recorded Internet Access Q1 No 01/15/2025 Internet Access Q2 I do not want or need it 12/24 Comments No Sex and Gender Information Value Date Recorded Sex Assigned at Female 07/24/2022 10:14 AM EDT Legal Sex Female 10:14 AM EDT Gender Identity Female 07/24/2022 10:14 AM EDT Sexual Orientation Choose not to disclose 2021 10:14 AM EDT documented as of this encounter Last Filed Vital Signs Vital Sign Reading Time Taken Comments Blood Pressure 131/82 01/15/2025 3:14 PM EDT Pulse 82 01/15/2025 3:14 PM EDT Temperature 36.4 ??C (97.6 ??F) 01/15/2025 3:14 PM ED T Respiratory Rate 20 01/15/2025 3:14 PM EDT Oxygen Saturation - - Inhaled Oxygen Concentration - - Weight 108 kg (237 lb) 01/15/2025 3:14 PM EDT Height 160 cm (5' 3 ) 01/15/2025 3:14 PM EDT Body Mass Index 41.98 01/15/2025 3:14 PM EDT documented in this encounter Progress Notes * Maddy Gauthier MD - 01/15/2025 3:15 PM EDT SUBJECTIVE: Rosie Malloy is a 44 y.o. year old female who presents for Follow up . Acute Concerns: Patient reports she has been having increased disseminated pain/polyarthralgia, she reports it is challenging for her to work because she cannot stand up for prolonged times, patient has a known condition lupus last time was seen by specialist was March 2024 Patient reports her menstrual period is now better and she does not have menorrhagia anymore Patient also complains of her last Social History Social History Narrative Not on file Patient Active Problem List Diagnosis Obesity Pain in pelvis Systemic lupus erythematosus (CMS/HCC) Hx of abnormal cervical Papanicolaou smear Dyspareunia, female Suprapubic pain Pyelonephritis Metrorrhagia Iron deficiency anemia Polyarthralgia Encounter for screening mammogram for malignant neoplasm of breast Hair loss No family history on file. Review of Systems Constitutional: Positive for fatigue. Negative for activity change, appetite change, chills, diaphoresis, fever and unexpected weight change. HENT: Negative. Respiratory: Negative. Cardiovascular: Negative. Musculoskeletal: Positive for arthralgias and myalgias. OBJECTIVE: Vitals: 01/15/25 1514 BP: 131/82 BP Location: Left arm Patient Position: Sitting BP Cuff Size: Large adult Pulse: 82 Resp: 20 Temp: 97.6 ??F (36.4 ??C) TempSrc: Oral Weight: 237 lb (108 kg) Height: 5' 3 (1.6 m) Physical Exam Constitutional: Appearance: Normal appearance. Cardiovascular: Rate and Rhythm: Normal rate and regular rhythm. Pulmonary: Effort: Pulmonary effort is normal. Breath sounds: Normal breath sounds. Abdominal: General: Abdomen is flat. Palpations: Abdomen is soft. Musculoskeletal: General: Tenderness present. Right lower leg: No edema. Left lower leg: No edema. Neurological: Mental Status: She is alert. Follow Up: Follow up for next available PAP smear . Current Outpatient Medications on File Prior to Visit Medication Sig Dispense Refill acetaminophen (Tylenol) 500 MG tablet take 1-2 tablet (1000MG) by oral route TID as needed; max. 6 tabs/24 hours albuterol 108 (90 Base) MCG/ACT inhaler Inhale 2 puffs every 6 (six) hours if needed for wheezing for up to 10 days. 18 g 0 ascorbic acid (Vitamin C) 500 MG tablet Take every other day with iron supplement 30 tablet 2 cefuroxime (Ceftin) 250 MG tablet Take 250 mg by mouth 2 times daily. cyclobenzaprine (Flexeril) 10 MG tablet Take 1 tablet (10 mg) by mouth 3 times daily for 10 days. 30 tablet 0 ferrous sulfate (Fe Tabs) 325 (65 Fe) MG EC tablet Take 1 tablet (325 mg) by mouth every other day.Do not crush, chew, or split. 15 tablet 2 ondansetron ODT (Zofran-ODT) 4 MG disintegrating tablet DISSOLVE 1 TABLET ON THE TONGUE EVERY 8 HOURS oxyCODONE (Roxicodone) 5 MG immediate release tablet TAKE 1 TABLET BY MOUTH EVERY 6 HOURS NEEDEDFOR SEVERE PAIN phenazopyridine (Pyridium) 200 MG tablet Take 200 mg by mouth if needed in the morning, at noon, and at bedtime. No current facility-administered medications on file prior to visit. Problem List Items Addressed This Visit Systemic lupus erythematosus (CMS/HCC) - Primary Do not miss follow-up appointment with specialist, blood work ordered today and results will be reviewed with patient Relevant Medications ibuprofen 800 MG tablet Other Relevant Orders CBC auto differential Comprehensive Metabolic Panel Sed Rate by Modified Westergren C-reactive Protein Complement Component C3c Complement Component C4c DNA (ds) Antibody Referral to Dermatology Iron deficiency anemia CBC will be checked with labs Polyarthralgia Relevant Medications ibuprofen 800 MG tablet Encounter for screening mammogram for malignant neoplasm of breast Relevant Orders BI Mammogram Screening Tomosynthesis Bilateral Hair loss Relevant Orders Referral to Dermatology documented in this encounter Miscellaneous Notes * Assessment & Plan Note - Maddy Gauthier MD - 01/15/2025 4:34 PM EDT Associated Problem(s): Systemic lupus erythematosus (CMS/HCC) Do not miss follow-up appointment with specialist, blood work ordered today and results will be reviewed with patient * Assessment & Plan Note - Maddy Gauthier MD - 01/15/2025 4:34 PM EDT Associated Problem(s): Iron deficiency anemia CBC will be checked with labs documented in this encounter Plan of Treatment Scheduled Orders Name Type Priority Associated Diagnoses Orde r Schedule BI Mammogram Screening Tomosynthesis Bilateral Imaging Routine Encounter for screening mammogram for malignant neoplasm of breast Expected: 01/15/2025, Expires: 03/17/2026 Complement Component C3c Lab Routine Systemic lupus erythematosus, unspecified SLE type, unspecified organ involvement status (CMS/HCC) Expected: 01/15/2025 (Approximate), Expires: 01/15/2026 Complement Component C4c Lab Routine Systemic lupus erythematosus, unspecified SLE type, unspecified organ involvement status (CMS/HCC) Expected: 01/15/2025 (Approximate), Expires: 01/15/2026 DNA (ds) Antibody Lab Routine Systemic lupus erythematosus, unspecified SLE type, unspecified organ involvement status (CMS/HCC) Expected: 01/15/2025 (Approximate), Expires: 01/15/2026 Scheduled Referrals Name Type Priority Associated Diagnoses Orde r Schedule Referral to Dermatology Outpatient Referral Routine Systemic lupus erythematosus, unspecified SLE type, unspecified organ involvement status (CMS/HCC) Hair loss Expected: 01/15/2025 (Approximate), Expires: 01/15/2026 documented as of this encounter Procedures Procedure Name Priority Date/Time Associated Diagnosis Comments CBC WITH AUTO DIFFERENTIAL Routine 01/15/2025 4:32 PM EDT Systemic lupus erythematosus, unspecified SLE type, unspecified organ involvement status (CMS/HCC) SED RATE BY MODIFIED WESTERGREN Routine 01/15/2025 4:32 PM EDT Systemic lupus erythematosus, unspecified SLE type, unspecified organ involvement status (CMS/HCC) C-REACTIVE PROTEIN Routine 01/15/2025 4: 32 PM EDT Systemic lupus erythematosus, unspecified SLE type, unspecified organ involvement status ([facility]/HCC) COMPREHENSIVE METABOLIC PANEL Routine 01/15/2025 4:32 PM EDT Systemic lupus erythematosus, unspecified SLE type, unspecified organ involvement status ([facility]/HCC) documented in this encounter Results * (ABNORMAL) C-reactive Protein (01/15/2025 4:32 PM EDT) C Reactive Protein 0.69(H) < or = 0.50 mg/dL [facility] Blood Venous blood specimen / Unknown 01/15/2025 4:32 PM EDT 01/15/2025 4:32 PM EDT us Maddy Gauthier MD LAB BLOOD ORDERABLES Final Result [facility] [address] [place], [place] [phone] * (ABNORMAL) Sed Rate by Modified Westergren (01/15/2025 4:32 PM EDT) Erythrocyte Sedimentation Rate 48(H) 0 - 20 MM/HR [facility] Comment:Patients with polycy themia and many hemoglobin abnormalitiesmay have depressed sed rates whereas patients with anemiamay have elevated sed rates. Blood Venous blood specimen / Unknown 01/15/2025 4:32 PM EDT 01/15/2025 4:32 PM EDT us Maddy Gauthier MD LAB BLOOD ORDERABLES Final Result [facility] [address] [place] [address] [phone] * (ABNORMAL) Comprehensive Metabolic Panel (01/15/2025 4:32 PM EDT) Sodium 136 135 - 145 mmol/L [facility] Potassium 4.1 3.3 - 5.1 mmol/L [facility] Chloride 106 96 - 108 mmol/L [facility] Carbon Dioxide 25 22 - 29 mmol/L [facility] Anion Gap 9(L) 12 - 20 [facility] Urea Nitrogen (BUN) 9 9 - 16 mg/dL [facility] Creatinine, Serum 0.56 0.5 - 1.4 mg/dL [facility] Estimated Glomerular Filt Rate >60 [facility] Comment:Chronic Kidney Disea se: Estimated GFR < 60 mL/min/[id number] Kidney Disease: Estimated GFR < 15 mL/min/1.73m2 Glucose 86 60 - 115 mg/dL [facility] Calcium 9.0 8.4 - 10.2 mg/dL [facility] Bilirubin, Total 0.3 0.0 - 1.0 mg/dL [facility] Aspartate Amino Transferase 48(H) 5 - 31 U/L [facility] Alanine Aminotransferase 53(H) 0 - 31 U/L [facility] Total Protein 7.5 6.5 - 8.0 g/dL [facility] Albumin Level 3.7 3.5 - 5.0 g/dL [facility] Alkaline Phosphatase 71 39 - 117 U/L [facility] Blood Venous blood specimen / Unknown 01/15/2025 4:32 PM EDT 01/15/2025 4:32 PM EDT us Maddy Gauthier MD LAB BLOOD ORDERABLES Final Result [facility] [address] [place] [address] [phone] * (ABNORMAL) CBC auto differential (01/15/2025 4:32 PM EDT) White Blood Count 7.4 4.8 - 10.8 X10*3/uL [facility] Red Blood Count 4.31 4.20 - 5.50 X10*6/uL [facility] Hemoglobin 10.1(L) 12.0 - 16.0 g/dl [facility] Hematocrit 32.7(L) 37.0 - 47.0 % [facility] Mean Corpuscular Volume 75.9(L) 80.0 - 98.0 fL [facility] Mean Corpuscular Hemoglobin 23.4(L) 27.0 - 33.0 pg [facility] Mean Corpuscular HGB Conc 30.9(L) 31.0 - 35.0 g/dl [facility] Red Cell Distribution Width 16.3(H) 11.0 - 16.0 % [facility] Platelet Count 280 160 - 400 X10*3/uL [facility] Mean Platelet Volume 11.3 9.4 - 12.3 fL [facility] Neutrophils Percent Auto 57.8 45 - 73 % [facility] Imm Gran Pct Auto 0.3 0.0 - 0.4 % [facility] Lymphocytes Percent Auto 32.3 20 - 40 % [facility] Monocytes Percent Auto 8.2 2 - 11 % [facility] Eosinophils Percent Auto 1.1 0 - 4 % [facility] Basophils Percent Auto 0.3 0 - 2 % [facility] NRBC Pct Auto 0.0 0.0 - 0.2 /100WBC [facility] Neutrophils Absolute Auto 4.3 2.0 - 8.3 x10*3/uL [facility] Imm Gran Abs Auto 0.02 0.00 - 0.03 X10*3/uL [facility] Lymphocytes Absolute Auto 2.4 1.2 - 4.9 X10*3/uL [facility] Monocytes Absolute Auto 0.6 0.1 - 1.2 X10*3/uL [facility] Eosinophils Absolute Auto 0.1 0.0 - 0.4 X10*3/uL [facility] Basophils Absolute Auto 0.0 0.0 - 0.2 X10*3/uL [facility] NRBC Abs Auto 0.000 0.0 - 0.012 X10*3/uL [facility] Blood Venous blood specimen / Unknown 01/15/2025 4:32 PM EDT 01/15/2025 4:32 PM EDT us Maddy Gauthier MD LAB BLOOD ORDERABLES Final Result [facility] [address] [place] [address] [phone] documented in this encounter Visit Diagnoses Diagnosis Systemic lupus erythematosus, unspecified SLE type, unspecified organ involvement status (CMS/HCC)- Primary Iron deficiency anemia due to chronic blood loss Iron deficiency anemia secondary to blood loss (chronic) Polyarthralgia Pain in joint, multiple sites Encounter for screening mammogram for malignant neoplasm of breast Hair loss Unspecified alopecia documented in this encounter Additional Health Concerns Assessment Noted Time PHQ-9 Depression Total Score: 0 01/16/20 25 3:14 PM EDT documented as of this encounter Care Teams Leadership Development Manager Relationship Specialty Start Date End Date Maddy Shah MD [address] [place] [address] PCP - General Family Medicine 11/04/20 documented as of this encounter
--- OUTSIDE RECORDS SUMMARY | 2025-01-15 18:35 | XMS_ITS | Encounter Summary ---
Author Organization [employer] Address [address]t [place] [address] Care Team Providers Care 3Rd Grade Reading Teacher Name Role Phone Maddy Shah MD Primary Care Provide r Encounter Details Date Type Department Care Team (Late st Contact Info) Description 01/06/2025 Telephone [facility] [address] [place] [address] Maddy Shah MD [address] [place] [address] Social History Tobacco Use Types Packs/Day Years [...] documented as of this encounter Care Teams 3Rd Grade Reading Teacher Relationship Specialty Start Date End Date Maddy Shah MD [address] [place] [phone] PCP - General Family Medicine 11/04/20 documented as of this encounter
--- OUTSIDE RECORDS SUMMARY | 2025-01-15 18:35 | XMS_ITS | Encounter Summary ---
Author Organization [employer] Address [address] [facility] [address] [place] [address] Care Team Providers Care Valve Lapper Name Role Phone Maddy Shah MD Primary Care Provide r Encounter Details Date Type Department Care Team (Late st Contact Info) Description 07/01/2024 Telephone [facility] [address] [place], [place] [phone] Maddy Shah MD [address] [place], [place] [phone] Social History Tobacco Use Types Packs/Day Years [...] documented as of this encounter Care Teams Valve Lapper Relationship Specialty Start Date End Date Maddy Shah MD [address] [place] [phone] PCP - General Family Medicine 11/04/20 documented as of this encounter
--- OUTSIDE RECORDS SUMMARY | 2025-01-15 18:35 | XMS_ITS | Encounter Summary ---
Author Organization [employer] Address [address] [facility] [address] [place] [address] Care Team Providers Care Corporate Associate Name Role Phone Maddy Shah MD Primary Care Provide r Encounter Details Date Type Department Care Team (Latest Contact Info) Description 01/15/2025 Travel Social History Tobacco Use Types Packs/Day Years [...] documented as of this encounter Care Teams Corporate Associate Relationship Specialty Start Date End Date Maddy Shah MD [address] [place] [address] PCP - General Family Medicine 11/04/20 documented as of this encounter
--- OUTSIDE RECORDS SUMMARY | 2025-01-15 18:35 | XMS_ITS | Encounter Summary ---
Author Organization [employer] Address [address] [facility] 7[address] [place] [address] Care Team Providers Care Garbage Pick Up Man Name Role Phone Maddy Shah MD Primary Care Provide r Encounter Details Date Type Department Care Team (Late st Contact Info) Description 08/13/2023 Abstract [facility] [address] [place] [place], [place] [phone] Urmila Taylor Social History Tobacco Use Types [...] intraephithelial lesion or malignancy, Other HPV Undetected us Historical Provider HEALTH MAINTENANCE Final Result documented in this encounter Visit Diagnoses Not on filedocumented in this encounter Additional Health Concerns Assessment Noted Time PHQ-9 Depression Total Score: 0 12/19/19 23 1:22 PM EDT documented as of this encounter Care Teams Garbage Pick Up Man Relationship Specialty Start Date End Date Maddy Shah MD [address] [place] [phone] PCP - General Family Medicine 11/04/20 Linda Magana Desulphurizer Operator 12/18/23 03/19/24 documented as of this encounter
--- OUTSIDE RECORDS SUMMARY | 2025-01-15 18:35 | XMS_ITS | Encounter Summary ---
Author Organization [employer] [facility] Address [address] [facility] [address] [place] [address] Care Team Providers Care Rail Loader Name Role Phone Maddy Shah MD Primary Care Provide r Reason for Visit * Reason Onset Date Comments Chart Prep 01/14/2025 Encounter Details Date Type Department Care Team ([facility] st Contact Info) Description 01/14/2025 Telephone [facility] [address] [place], [place] [phone] Maddy Shah MD [address] [place], [place] [phone] Chart Prep Social History Tobacco Use Types [...] Telephone Encounter - Nelli Steele [place] - 01/14/2025 3:42 PM EDT Chart Prep Labs: not applicable Images: done Referrals: Ask patient if she went to OBGYN and PT Vaccines due: yes Screenings: mammogram and pap smear Overdue care gaps: SBIRT, SDOH, PHQ-9, RIKA-7, Oral health screening, Disability screen, and Tobacco documented in this encounter Plan of Treatment Not on file documented as of this encounter Visit Diagnoses Not on filedocumented in this encounter Additional Health Concerns Assessment Noted Time PHQ-9 Depression Total Score: 0 12/19/19 23 1:22 PM EDT documented as of this encounter Care Teams Rail Loader Relationship Specialty Start Date End Date Maddy Shah MD [address] [place] [address] PCP - General Family Medicine 11/04/20 documented as of this encounter
--- OUTSIDE RECORDS SUMMARY | 2025-01-15 18:35 | XMS_ITS | Encounter Summary ---
Author Organization [facility] Address [address] [facility] [address] [place] [address] Care Team Providers Care Safety Lead Name Role Phone Maddy Shah MD Primary Care Provide r Reason for Visit * Reason Onset Date Comments Appointment Request 01/08/2025 Encounter Details Date Type Department Care Team ([facility] st Contact Info) Description 01/08/2025 Telephone [facility] [address] [place] [address] Maddy Shah MD [address] [place], [place] [phone] Appointment Request Social History Tobacco Use Types Packs/Day Years [...] encounter Miscellaneous Notes * Telephone Encounter - Viridiana Gomez - 01/08/2025 2:58 PM EDT Tc from pt requesting appointment for sing oc paper form. Pt stated that she needs to be seen so that the nurses can sign the paperwork. Contact pt [phone] documented in this encounter Plan of Treatment Not on file documented as of this encounter Visit Diagnoses Not on filedocumented in this encounter Additional Health Concerns Assessment Noted Time PHQ-9 Depression Total Score: 0 12/19/19 23 1:22 PM EDT documented as of this encounter Care Teams Safety Lead Relationship Specialty Start Date End Date Maddy Shah MD [address] [place] [address] PCP - General Family Medicine 11/04/20 documented as of this encounter
--- OUTSIDE RECORDS SUMMARY | 2025-01-15 18:35 | XMS_ITS | Clinical Summary ---
Author Organization [employer] [facility] ity Address [address] [place] [address] Care Team Providers Care Retail Department Supervisor Name Role Phone Unavailable Primary Care [...] Influencers of Health Screening 08/27/2022 COVID-19 Vaccine (2023-2 5 season) 2024 Influenza Vaccine (Season Ended) 2025 08/23/20 16 HIB Vaccines Aged Out No longer eligi [...] age to complete this topic Meningococcal B Vaccine Aged Out No l onger eligible based on patient's age to complete [...]
--- OUTSIDE RECORDS SUMMARY | 2025-01-15 18:35 | XMS_ITS | Clinical Summary ---
Author Organization [employer] [facility] Address [address] [place] [address] Care Team Providers Care Director Of Product Development Name Role Phone Maddy Shah MD Primary [...] 10 days. 30 tablet 11/30/19 25 Active ibuprofen 800 MG tabletIndications: Systemic lupus erythematosus, unspecified SLE type, unspecified organ involvement status (CMS/HCC),Polyarth ralgia Take 1 tablet (800 mg) by mouth every 8 (eight) hours if needed for mild pain for up to 10 days. 30 tablet 01/16/20 25 025 Active celecoxib (CeleBREX) 200 MG capsule Take 1 capsule (200 mg) by mouth 2 times daily for 20 days. 40 capsule 11/30/19 25 025 Active Problems Problem Noted Date Diagnosed Date Polyarthralgia 01/15/2025 Encounter for screening mamm ogram for malignant neoplasm of breast 01/15/2025 Hair loss 01/15/2025 Metrorrhagia 06/23/2024 Assessment & Plan (06/23/2024 5:30 PM EDT): I will order US I will refer her to [facility] Iron deficiency anemia 06/23/2024 Assessment & Plan (01/15/2025 4:34 PM EDT): CBC will be checked with labs Assessment & Plan (06/23/2024 5:31 PM EDT): [...] Systemic lupus erythematosus 03/03/2016 Assessment & Plan (01/15/2025 4:34 PM EDT): Do not miss follow-up appointment with specialist, blood work ordered today and results will be reviewed with patient Assessment & Plan (06/23/2024 5:31 PM EDT): Continue to follow with specialist Encounters Date Type Department Care Team Description 01/15/2025 3:15 PM EDT Office Visit [facility] [address] [place] [phone] Maddy Shah MD Systemic lupus erythematosus, unspecified SLE type, unspecified organ involvement status (CMS/HCC) (Primary Dx); Iron deficiency anemia due to chronic blood loss; Polyarthralgia; Encounter for screening mammogram for malignant neoplasm of breast; Hair loss 01/15/2025 Travel 01/14/2025 Telephone [facility] [address] [place] [phone] Maddy Shah MD Chart Prep 01/08/2025 Telephone [facility] [address] [place] [phone] Maddy Shah MD Appointment Request 01/08/2025 Telephone [facility] [address] [place] [phone] Maddy Shah MD Appointment Request 01/06/2025 Telephone [facility] [address] [place] [phone] Maddy Shah MD 01/05/2025 Telephone [facility] [address] [place] [phone] Maddy Shah MD Results 12/22/2024 Orders Only [facility] [address] [place] [phone] Name, MD Zan 12/05/2024 Population Health Risk Score [facility] Department [address] [place] [phone] Provider, Population Health Generic 11/29/2024 10:40 AM EST Office Visit [facility] [address] [place] [phone] Betyt, MD Zan Right knee pain, unspecified chronicity (Primary Dx); Right ankle pain, unspecified chronicity; Acute bilateral low back pain without sciatica 11/29/2024 Travel 11/20/2024 Telephone [facility] [address] [place] [phone] Maddy Shah MD Nurse Triage 10/17/2024 10:20 AM EST Office Visit [facility] [address] [place] [address] Andres Coronado MD Bronchitis (Primary Dx); Viral URI with cough 10/17/2024 Telephone [facility] [address] [place] [phone] Maddy Shah MD Nurse Triage from Last [...] Tobacco: Never Tobacco Cessation:Counseling Given: Not Answered Alcohol Use Standard Drinks/Week Comments Never 0 [...] 20 01/15/2025 3:14 PM EDT Oxygen Saturation 99% 11/29/2024 9:52 AM EST Inhaled Oxygen Concentration - - Weight 108 kg (237 lb) 01/15/2025 3:14 PM EDT Height 160 cm (5' 3 ) 01/15/2025 3:14 PM EDT Body Mass Index 41.98 01/15/2025 3:14 PM EDT Plan of Treatment Health Maintenance Due Date Last Done Comments HIV Screening 1981 Family Planning (PISQ) 02/19/1996 Hepatitis C Screening 1999 Mammogram 2021 DTaP/Tdap/Td Vaccines (7 - Td or Tdap) 07/19/2021 07/19/2011, 02/28/2006, 07/14/1993, Additional history exists Cervical Cancer Screening 12/11/2023 HPV/Cotest 12/11/2023 12/10/2018 Pap Smear 12/11/2023 12/10/2018 COVID-19 Vaccine ( - season) 2024 Influenza Vaccine (#1) 2024 8, 08/23/2016, 06/16/2013 Alcohol/Substance Use Screening 01/15/2026 01/15/2025 Depression Screening 01/15/2026 01/15/2025, 01/16/20 25 SDOH Screening 01/15/2026 01/15/2025 Tobacco Screening 01/15/2026 01/15/2025 Lipid Panel 10/19/2026 10/19/2021 Zoster Vaccines (1 [...] Procedure Name Priority Date/Time Associated Diagnosis Comments C-REACTIVE PROTEIN Routine 01/15/2025 4: 32 PM EDT Systemic lupus erythematosus, unspecified SLE type, unspecified organ involvement status (CMS/HCC) SED RATE BY MODIFIED WESTERGREN Routine 01/15/2025 4:32 PM EDT Systemic lupus erythematosus, unspecified SLE type, unspecified organ involvement status (CMS/HCC) COMPREHENSIVE METABOLIC PANEL Routine 01/15/2025 4:32 PM EDT Systemic lupus erythematosus, unspecified SLE type, unspecified organ involvement status (CMS/HCC) CBC WITH AUTO DIFFERENTIAL Routine 01/15/2025 4:32 PM EDT Systemic lupus erythematosus, unspecified SLE type, unspecified organ involvement status (CMS/HCC) XR ANKLE 3+ VIEWS RIGHT Routine 12/22/2024 3:54 PM EDT XR KNEE 4+ VIEWS RIGHT Routine 2:26 PM EDT Right knee pain, unspecified [...] Recently Relevant to Health Maintenance Results * (ABNORMAL) CBC auto differential (01/15/2025 4:32 PM EDT) White Blood Count 7.4 4.8 - 10.8 X10*3/uL [facility] Red Blood Count 4.31 4.20 - 5.50 X10*6/uL [facility] Hemoglobin 10.1(L) 12.0 - 16.0 g/dl [facility] Hematocrit 32.7(L) 37.0 - 47.0 % [facility] Mean Corpuscular Volume 75.9(L) 80.0 - 98.0 fL [facility] Mean Corpuscular Hemoglobin 23.4(L) 27.0 - 33.0 pg [facility] Mean Corpuscular HGB Conc 30.9(L) 31.0 - 35.0 g/dl [facility] Red Cell Distribution Width 16.3(H) 11.0 - 16.0 % [facility] Platelet Count 280 160 - 400 X10*3/uL [facility] Mean Platelet Volume 11.3 9.4 - 12.3 fL [facility] Neutrophils Percent Auto 57.8 45 - 73 % [facility] Imm Gran Pct Auto 0.3 0.0 - 0.4 % [facility] Lymphocytes Percent Auto 32.3 20 - 40 % [facility] Monocytes Percent Auto 8.2 2 - 11 % [facility] Eosinophils Percent Auto 1.1 0 - 4 % [facility] Basophils Percent Auto 0.3 0 - 2 % [facility] NRBC Pct Auto 0.0 0.0 - 0.2 /100WBC [facility] Neutrophils Absolute Auto 4.3 2.0 - 8.3 x10*3/uL [facility] Imm Gran Abs Auto 0.02 0.00 - 0.03 X10*3/uL [facility] Lymphocytes Absolute Auto 2.4 1.2 - 4.9 X10*3/uL [facility] Monocytes Absolute Auto 0.6 0.1 - 1.2 X10*3/uL [facility] Eosinophils Absolute Auto 0.1 0.0 - 0.4 X10*3/uL [facility] Basophils Absolute Auto 0.0 0.0 - 0.2 X10*3/uL [facility] NRBC Abs Auto 0.000 0.0 - 0.012 X10*3/uL [facility] Blood Venous blood specimen / Unknown 01/15/2025 4:32 PM EDT 01/15/2025 4:32 PM EDT us Maddy Gauthier MD LAB BLOOD ORDERABLES Final Result Performing Organization Address [facility] Co de Phone Number [facility] [address] [place] [phone] * (ABNORMAL) Sed Rate by Modified Westergren (01/15/2025 4:32 PM EDT) Pathologist [facility] Erythrocyte Sedimentation Rate 48(H) 0 - 20 MM/HR [facility] Comment:Patients with polycy themia and many hemoglobin abnormalitiesmay have depressed sed rates whereas patients with anemiamay have elevated sed rates. Blood Venous blood specimen / Unknown 01/15/2025 4:32 PM EDT 01/15/2025 4:32 PM EDT us Maddy Gauthier MD LAB BLOOD ORDERABLES Final Result Performing Organization Address [facility] Co de Phone Number [facility] [address] [place] [address] [phone] * (ABNORMAL) C-reactive Protein (01/15/2025 4:32 PM EDT) Pathologist [facility] C Reactive Protein 0.69(H) < or = 0.50 mg/dL [facility] Blood Venous blood specimen / Unknown 01/15/2025 4:32 PM EDT 01/15/2025 4:32 PM EDT us Maddy Gauthier MD LAB BLOOD ORDERABLES Final Result Performing Organization Address [facility] Co de Phone Number [facility] [address] [place] [address] [phone] * (ABNORMAL) Comprehensive Metabolic Panel (01/15/2025 4:32 PM EDT) Sodium 136 135 - 145 mmol/L [facility] Potassium 4.1 3.3 - 5.1 mmol/L [facility] Chloride 106 96 - 108 mmol/L [facility] Carbon Dioxide 25 22 - 29 mmol/L [facility] Anion Gap 9(L) 12 - 20 [facility] Urea Nitrogen (BUN) 9 9 - 16 mg/dL [facility] Creatinine, Serum 0.56 0.5 - 1.4 mg/dL [facility] Estimated Glomerular Filt Rate >60 [facility] Comment:Chronic Kidney Disea se: Estimated GFR < 60 mL/min/1.52g3Fvfedb Kidney Disease: Estimated GFR < 15 mL/min/1.73m2 Glucose 86 60 - 115 mg/dL [facility] Calcium 9.0 8.4 - 10.2 mg/dL [facility] Bilirubin, Total 0.3 0.0 - 1.0 mg/dL [facility] Aspartate Amino Transferase 48(H) 5 - 31 U/L [facility] Alanine Aminotransferase 53(H) 0 - 31 U/L [facility] Total Protein 7.5 6.5 - 8.0 g/dL [facility] Albumin Level 3.7 3.5 - 5.0 g/dL [facility] Alkaline Phosphatase 71 39 - 117 U/L [facility] Blood Venous blood specimen / Unknown 01/15/2025 4:32 PM EDT 01/15/2025 4:32 PM EDT us Maddy Gauthier MD LAB BLOOD ORDERABLES Final Result [facility] [address] [place] [phone] * XR Ankle 3+ Views Right (12/22/2024 3:54 PM EDT) Anatomical Region Laterality Modality Lower Extremities, Ankle Right Radiogr aphic Imaging 12/22/2024 3:54 PM EDT Narrative 12/22/2024 3:55 PM EDT ?[facility] ?[address] ?[place] [address] ?XRay Report ? Signed ? Patient: Malloy,Rosie ?MR#: [id number] ? : 1980 ?Acct:[id number] ? Age/Sex: 44 / F ?ADM Date: 12/22/24 ? Loc: HO.HHCX ? Attending Dr: Zan Hernández MD ? Ordering Physician: Zan Hernández MD ?? Date of Service: 12/22/24 ?? Procedure(s): XR ankle RT min 3V ?? Accession Number(s): [id number] ? cc: Zan Hernández MD ? CLINICAL [...] DD/ 1554 ? TD/TT: 12/22/24 1554 ? Unit Assistant: ? Procedure Note Grant, Image - 12/22/[address] [address] XRay Report Signed Patient: Kiana Malloy#: [id number] : 1980Acct:[id number] Age/Sex: 44 / FADM Date: 12/22/24 Loc: HO.HHCX Attending Dr: Zan Hernández MD Ordering Physician: Zan Hernández MD Date of Service: 12/22/24 Procedure(s): XR ankle RT min 3V Accession Number(s): [id number] cc: Zan Hernández MD CLINICAL HISTORY: PAIN [...] 12/22/24 1555 DD/ 1554 TD/TT: 12/22/24 1554 Unit Assistant: us Zan Name IMG XR PROCEDURES Final Result * XR Knee 4+ Views Right (12/22/2024 2:26 PM EDT) Anatomical Region Laterality Modality Lower Extremities, Knee Right Radiogra phic Imaging 12/22/2024 2:26 PM EDT Narrative 12/22/2024 3:42 PM EDT ?[facility] ?[address] ?[place] [address] ?XRay Report ? Signed ? Patient: Rosie Malloy ?MR#: [id number] ? : 1980 ?Acct:[id number] ? Age/Sex: 44 / F ?ADM Date: 12/22/24 ? Loc: HO.HHCX ? Attending Dr: Zan Hernández MD ? Ordering Physician: Name,Zan CUMMINGS ?? Date of Service: 12/22/24 ?? Procedure(s): XR knee RT 4V ?? Accession Number(s): [id number] ? cc: Name,Zan CUMMINGS ? EXAMINATION: ??XR KNEE 4 OR MORE [...] DD/ 1426 ? TD/TT: 12/22/24 1430 ? Unit Assistant: ? Procedure Note Donsabrinater, Image - 12/22/[address] [address] XRay Report Signed Patient: Kiana Malloy#: [id number] : 1980Acct:[id number] Age/Sex: 44 / FADM Date: 12/22/24 Loc: HO.HHCX Attending Dr: Zan Hernández MD Ordering Physician: Zan Hernández MD Date of Service: 12/22/24 Procedure(s): XR knee RT 4V Accession Number(s): [id number] cc: Zan Hernández MD EXAMINATION: XR KNEE [...] Kain Ordonez MD 12/22/2024 03:39 PM EDT Dictated By: Kain Ordonez MD Signed By: <Electronically signed by Kain Ordonez MD in OV> 12/22/24 1539 DD/ 1426 TD/TT: 12/22/24 1430 Unit Assistant: Zan Hernández MD IMG XR PROCEDURES Final Result * Influenza B (ID NOW Rapid Molecular) (10/17/2024 10:30 AM EST) [facility] Influenza B Negative Negative, Indeterminate [facility] Swab 10/17/2024 10:3 0 AM EST us Andres Coronado MD POINT OF CARE TEST ENTER/EDIT OR DERABLES Final Result Performing Organization Address City/[facility]/ZIP Co de Phone Number [facility] [address] [place] [phone] * Influenza A (ID NOW Rapid Molecular) (10/17/2024 10:30 AM EST) [facility] Influenza A Negative Negative, Indeterminate [facility] Swab 10/17/2024 10:3 0 AM EST us Andres Coronado MD POINT OF CARE TEST ENTER/EDIT OR DERABLES Final Result Performing Organization Address City/[facility]/ZIP Co de Phone Number [facility] [address] [place] [phone] * POCT Rapid COVID Ag (10/17/2024 10:30 AM EST) [facility] Rapid COVID Ag Negative Swab 10/17/2024 10:3 0 AM EST us Andres Coronado MD POINT OF CARE TEST ENTER/EDIT OR DERABLES Final Result * Respiratory Viral Panel PCR (10/17/2024 12:00 AM EST) [facility] Adenovirus PCR Not Detected Not Detect. [facility] Bordetella pertussis PCR Not Detected Not Detect. [facility] Comment:Interpret results wi th caution. If B. pertussis isspecifically suspected, additional testing using analternate method is recommended. Bordetella parapertussis PCR Not Detected Not Detect. [facility] Chlamydia pneumoniae PCR Not Detected Not Detect. [facility] Coronavirus 229E PCR Not Detected Not Detect. [facility] Coronavirus HKU1 PCR Not Detected Not Detect. [facility] Coronavirus NL63 PCR Not Detected Not Detect. [facility] Coronavirus OC43 PCR Not Detected Not Detect. [facility] SARS-CoV-2 PCR Not Detected Not Detect. [facility] Comment:SARS-CoV-2 not detec gurjit by real-time RT-PCR.Note: If clinical suspicion for Sars-CoV-2 is high, continueto maintain precautions and consider repeat testing.Test results should be interpreted in the context ofclinical findings and other laboratory data.Rare polymorphisms exist that could lead to false-negativeor false-positive results. If results do not match theclinical findings, additional testing should be considered.Results reported to [facility].This test has been authorized by the FDA under the EmergencyUse Authorization (EUA) for use by authorized laboratories. Influenza A PCR Not Detected Not Detect. [facility] Influenza B PCR Not Detected Not Detect. [facility] Human metapneumovirus PCR Not Detected Not Detect. [facility] Rhino/Enterovirus PCR Not Detected Not Detect. [facility] Mycoplasma pneumoniae PCR Not Detected Not Detect. [facility] Parainfluenza 1 PCR Not Detected Not Detect. [facility] Parainfluenza 2 PCR Not Detected Not Detect. [facility] Parainfluenza 3 PCR Not Detected Not Detect. [facility] Parainfluenza 4 PCR Not Detected Not Detect. [facility] RSV PCR Not Detected Not Detect. [facility] Resp Panel NA Note See Note H [facility] Comment:All results must be correlated with [...] assay is performed by Multiplexed PCR, utilizing the[employer] Film Array. 10/17/2024 10/17/2024 us Andres Coronado MD LAB BLOOD ORDERABLES Final Resul t [facility] [address] [place] [phone] * (ABNORMAL) LIPID PANEL, STANDARD (10/19/2021 [...] ?? Olman CHACKO et al. REYNALDO. 2013;310(19): 2177-1376 ?? (http://education.[employer]/faq/KTS752) Non-HDL Cholesterol 134(H) <130 mg/dL (calc) [facility] Comment: For patients with diabetes plus 1 major ASCVD risk ?? factor, treating to a non-HDL-C goal of <100 mg/dL ?? (LDL-C of <70 mg/dL) is considered a therapeutic ?? option. Triglycerides 96 <150 mg/dL [facility] 10/19/2021 8:49 AM EST us Maddy Gauthier MD LAB BLOOD ORDERABLES Final Result Performing Organization Address City/[facility]/ZIP Co de Phone Number [facility] [address] [place] [address], [place] * Hm Pap Smear (12/10/2018) Pap Negative for intraephithelial lesion or malignancy Negative for intraephithelial lesion or malignancy, Other HPV Undetected us Historical Provider HEALTH MAINTENANCE Final Result from Last 3 Months or Most Recently Relevant to Health Maintenance Insurance [address] [place], [place] [id number] Care Teams Director Of Product Development Relationship Specialty Start Date End Date Maddy Shah MD [address] [place] [phone] PCP - General Family Medicine 11/04/20
[2025-01-16 21:48] LABS: Anti DNA DS Antibody 3 IU/mL
[2025-01-19 17:39] LABS: Complement C3 128 mg/dL (83-193)
== END 2025-01-15 16:10 | disposition home or self-care (01) ==
LOC: HO.HHCL 16:09
PROVIDERS: Visit Provider Internal Medicine
DX: M32.9 Systemic lupus erythematosus, unspecified (principal)
CPT/HCPCS: 36415; 80053; 85025; 85652; 86140; 86160; 86225

== ENCOUNTER 2025-05-27 10:29 | Emergency (ER) | payer MEDICAID, SELFPAY ==
[2025-05-27 10:37] VITALS: BP 123/62; PULSE 92; RESP 18; TEMP 37.1; O2SAT 97; BMI 40.7
--- NOTE | 2025-05-27 10:37 | ED.GENADULT ---
HPI - General Adult General Chief complaint: Urogenital-Female Stated complaint: bladder/pelvic pain Time Seen by Provider: 05/27/25 11:08 Source: patient Mode of arrival: ambulatory Limitations: no limitations History of Present Illness ED Provider: HPI narrative: 45-year-old woman presents with what she describes as burning pain within her bladder or suprapubic area and, has had no fevers or chills, denies being , no vaginal bleeding or discharge reported, has history of pyelonephritis of the right kidney. No nausea no vomiting. Related Data Home Medications ?Medication ?Instructions ?Recorded ?Confirmed multivitamin 1 tab PO DAILY 03/24/24 Previous Rx's ?Medication ?Instructions ?Recorded phenazopyridine 200 mg tablet 200 mg PO TID PRN pain 3 days #10 05/27/25 (Pyridium) tabs Allergies Allergy/AdvReac Type Severity Reaction Status Date / Time No Known Allergies Allergy Verified 05/27/25 10:38 Review of Systems Constitutional: Constitutional: Reports as per HPI [facility] Past Medical History Medical History Screen for sexually transmitted diseases Cervical cancer screening Breast cancer screening Well woman exam with routine gynecological exam Lupus Surgical History Hx of emergency section Hx of tubal ligation Family History Family History Maternal Aunt Lupus Mother Rheumatoid arthritis Social History Social History Household Members: Spouse and Children Housing: Apartment Do you presently have visiting nurse or other home services: No Alcohol intake: never Patient Tobacco Use Status: Never used Tobacco Advance Directives: No Advance Directives Information Provided: Yes Do you have a plan to hurt others: No Plan Current occupational status: employed 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 [employer] Physical Exam ED Vital Signs: Vital Signs - 24 hr 05/27/25 10:37 Temperature 98.8 F Pulse Rate 92 Respiratory Rate 18 Blood Pressure 123/62 Pulse Oximetry 97 Oxygen Delivery Method Room Air BMI result Body Mass Index 40.7 Const Other: Gen: ?Overall well-appearing patient HEENT: PERRLA, EOMI, MMM, Resp: ?No wheezing rales rhonchi no stridor moving air well Abd: ?Bowel sounds are present, no tenderness no rebound no rigidity MSK: FROM, strength 5/5 all extremities Skin: Warm, dry, intact, Neuro: ?Alert and oriented x3, moving upper and lower extremities symmetrically, no obvious facial asymmetry noted Course Course Course Narrative: This is a Rapid Medical Examination (RME) performed by Ladonna Hanna PA-C in triage. Full HPI, ROS, assessment and treatment plan per primary provider in the Main ED. Hx: 45 yo F here w/ pelvic pain, left flank pain, and buring w/ urination. hx of pyelonephritis. Plan: labs, UA Medical Decision Making Medical Decision Making MDM Narrative: Reports suprapubic discomfort, benign abdominal exam no tenderness in right lower lower quadrants, did not elicit tenderness in suprapubic area but she points to it, no vaginal bleeding or discharge reported, no fevers or chills, her workup has been reassuring no evidence for leukocytosis, renal issues, she is not , and there was no evidence for a UTI on urinalysis. Differential Diagnosis Differential Diagnoses: The differential diagnosis associated with the presentation includes (Pyelonephritis, ectopic , ovarian torsion, appendicitis, UTI) Lab Data [facility] Lab Attestation statement: I reviewed the patient's lab results. 05/27/25 11:34 05/27/25 11:34 Labs: Lab Results 05/27/25 05/27/25 Range/Units 11:12 11:34 WBC 6.8 (4.8-10.8) X10*3/uL RBC 4.24 (4.20-5.50) X10*6/uL Hgb 9.7 L (12.0-16.0) g/dl Hct 32.0 L (37.0-47.0) % MCV 75.5 L (80.0-98.0) fL MCH 22.9 L (27.0-33.0) pg MCHC 30.3 L (31.0-35.0) g/dl RDW 17.8 H (11.0-16.0) % Plt Count 275 (160-400) X10*3/uL MPV 10.7 (9.4-12.3) fL Immature Gran % (Auto) 0.4 (0.0-0.4) % Neut % (Auto) 63.2 (45-73) % Lymph % (Auto) 27.6 (20-40) % [place] % (Auto) 7.8 (2-11) % Eos % (Auto) 0.9 (0-4) % Baso % (Auto) 0.1 (0-2) % Lymph # (Auto) 1.9 (1.2-4.9) X10*3/uL [place] # (Auto) 0.5 (0.1-1.2) X10*3/uL Eos # (Auto) 0.1 (0.0-0.4) X10*3/uL Baso # (Auto) 0.0 (0.0-0.2) X10*3/uL Abs Immat Gran (auto) 0.03 (0.00-0.03) X10*3/uL Absolute Neuts (auto) 4.3 (2.0-8.3) x10*3/uL Absolute Nucleated RBC 0.000 (0.0-0.012) X10*3/uL Nucleated RBC % (auto) 0.0 (0.0-0.2) /100WBC Sodium 138 (135-145) mmol/L Potassium 3.9 (3.3-5.1) mmol/L Chloride 110 H (96-108) mmol/L Carbon Dioxide 24 (22-29) mmol/L Anion Gap 8 L (12-20) BUN 11 (9-16) mg/dL Creatinine 0.72 (0.5-1.4) mg/dL Estim Creat Clear Calc 115.2 Estimated GFR > 60 Random Glucose 106 (60-115) mg/dL Calcium 8.3 L D (8.4-10.2) mg/dL Magnesium 1.7 (1.6-2.6) mg/dL Total Bilirubin 0.4 (0.0-1.0) mg/dL AST 74 H (5-31) U/L ALT 80 H (0-31) U/L Alkaline Phosphatase 67 (39-117) U/L Total Protein 6.9 (6.5-8.0) g/dL Albumin 3.5 (3.5-5.0) g/dL Lipase 25 (8-78) U/L Urine Color Yellow Urine Appearance Clear Urine pH 5.5 (5.0-9.0) Ur Specific [place] 1.025 (1.005-1.025) Urine Protein Negative (Neg-Trace) mg/dL Urine Glucose (UA) Negative (Negative) mg/dL Urine Ketones Negative (Negative) mg/dL Urine Blood Negative (Negative) Urine Nitrite Negative (Negative) Ur Leukocyte Esterase Negative (Negative) Urine Test NEGATIVE (NEGATIVE) Prescription Management I considered prescription management with: Pain Medication and Antibiotic Discharge Plan Discharge Clinical Impression: Suprapubic discomfort Additional Instructions: You were evaluated with suprapubic discomfort in the emergency department described as burning pain, you have history of kidney infection, today your physical examination was quite reassuring, along with the vital signs he has had no fevers, your blood work did not reveal any evidence for underlying infection or kidney issues, and the urine did not reveal absolutely any evidence for underlying infectious etiology, was done it was negative At this point that I do not see any utility in further imaging or antibiotics, I would recommend keeping an eye on this and if you spike fevers or something gets worse come back to the ER in the meantime let us try her on Pyridium which is an anesthetic for bladder discomfort, it may turn your urine orange, you can also use either ibuprofen or Tylenol for this pain, follow up with the PCP any other issues concerns come back to the ER Prescriptions: New phenazopyridine [Pyridium] 200 mg tablet 200 mg PO TID PRN (Reason: pain) 3 Days Qty: 10 0RF No Action multivitamin Tablet 1 tab PO DAILY Referrals: Lou Centeno NP [Primary Care Provider, Medical] - 1 week Clinical Impression: Suprapubic discomfort Print Language: [place] Timorese
[2025-05-27 11:38] LABS: MANUAL DIFF FLAG NO
[2025-05-27 11:43] LABS: UPreg QC Valid YES
[2025-05-27 11:44] LABS: Appearance Urine Clear; Glucose Urine UA Negative (Negative); PH 5.5 (5.0-9.0); Specific Gravity - Urine 1.025 (1.005-1.025)
[2025-05-27 11:45] LABS: Hematocrit 32.0 % (37.0-47.0); Hemoglobin 9.7 g/dl (12.0-16.0); Imm Gran Abs Auto 0.03 X10*3/uL (0.00-0.03); Imm Gran Pct Auto 0.4 % (0.0-0.4); Lymphocytes Absolute Auto 1.9 X10*3/uL (1.2-4.9); Mean Corpuscular HGB Conc 30.3 g/dl (31.0-35.0); Mean Corpuscular Hemoglobin 22.9 pg (27.0-33.0); Mean Corpuscular Volume 75.5 fL (80.0-98.0); NRBC Abs Auto 0.000 X10*3/uL (0.0-0.012); NRBC Pct Auto 0.0 /100WBC (0.0-0.2); Platelet Count 275 X10*3/uL (160-400); Red Blood Count 4.24 X10*6/uL (4.20-5.50); White Blood Count 6.8 X10*3/uL (4.8-10.8)
[2025-05-27 11:54] LABS: Alanine Aminotransferase 80 U/L (0-31); Albumin Level 3.5 g/dL (3.5-5.0); Alkaline Phosphatase 67 U/L (39-117); Anion Gap 8 (12-20); Aspartate Amino Transferase 74 U/L (5-31); Blood Urea Nitrogen 11 mg/dL (9-16); Calcium 8.3 mg/dL (8.4-10.2); Carbon Dioxide 24 mmol/L (22-29); Chloride 110 mmol/L (96-108); Creatinine Clr Calc Pharmacy 115.2; Estimated Glomerular Filt Rate > 60; Lipase 25 U/L (8-78); Magnesium 1.7 mg/dL (1.6-2.6); Potassium 3.9 mmol/L (3.3-5.1); Sodium 138 mmol/L (135-145); Total Protein 6.9 g/dL (6.5-8.0)
[2025-05-27 12:09] VITALS: BP 123/62; PULSE 92; RESP 18; TEMP 37.1; O2SAT 97
== END 2025-05-27 12:15 | disposition home or self-care (01) ==
PROVIDERS: Physician Assistant Medical; Emergency Provider Emergency Medicine; PCP Nurse Practitioner Family
DX: R30.0 Dysuria (principal); R10.2 Pelvic and perineal pain; R10.31 Right lower quadrant pain; Z79.899 Other long term (current) drug therapy
CPT/HCPCS: 36415; 80053; 81003; 81025; 83690; 83735; 85025; 99282; 99283

== ENCOUNTER 2025-06-12 19:39 | Emergency (ER) | payer MEDICAID, SELFPAY ==
--- NOTE | ~2025-06-12 | CT_ITS ---
CLINICAL HISTORY: left sided flank pain, rule out stone CT abdomen and pelvis without contrast Indication: Left-sided flank pain Comparison: CT/REG/IN/SR - CT ABDOMEN PELVIS W IV CON - 12/03/2023 06:18 AM EDT Findings: No consolidation or effusion. Hepatic parenchyma is normal. Gallbladder is decompressed. Spleen is normal. Pancreas is normal. Stomach is distended. Adrenal glands are normal. The left kidney demonstrates no renal lithiasis or hydronephrosis. Right kidney demonstrates no evidence of renal lithiasis or hydroureter. No hydroureter or ureteral lithiasis at the ureterovesicular junction. Bladder is normal. Uterus displaces the right bladder. Noncontrasted small and large bowel are normal. The appendix is normal. Pelvic contents are unremarkable. Osseous structures are normal. IMPRESSION: No acute intra-abdominal or retroperitoneal findings. No evidence of obstructing renal lithiasis or ureterolithiasis. This document has been electronically signed by: Dhiraj Oneil III, MD PHD on 06/13/2025 03:18:56
[2025-06-12 20:22] VITALS: BP 138/81; PULSE 95; RESP 18; TEMP 36.4; O2SAT 96; BMI 39.0
[2025-06-12 20:59] LABS: Hematocrit 31.1 % (37.0-47.0); Hemoglobin 10.0 g/dl (12.0-16.0); Imm Gran Abs Auto 0.02 X10*3/uL (0.00-0.03); Imm Gran Pct Auto 0.2 % (0.0-0.4); Lymphocytes Absolute Auto 2.5 X10*3/uL (1.2-4.9); MANUAL DIFF FLAG NO; Mean Corpuscular HGB Conc 32.2 g/dl (31.0-35.0); Mean Corpuscular Hemoglobin 23.3 pg (27.0-33.0); Mean Corpuscular Volume 72.5 fL (80.0-98.0); NRBC Abs Auto 0.000 X10*3/uL (0.0-0.012); NRBC Pct Auto 0.0 /100WBC (0.0-0.2); Platelet Count 264 X10*3/uL (160-400); Red Blood Count 4.29 X10*6/uL (4.20-5.50); White Blood Count 8.5 X10*3/uL (4.8-10.8)
[2025-06-12 21:06] LABS: Appearance Urine Clear; Glucose Urine UA Negative (Negative); PH 7.0 (5.0-9.0); Specific Gravity - Urine >= 1.030 (1.005-1.025)
[2025-06-12 21:14] LABS: Alanine Aminotransferase 69 U/L (0-31); Albumin Level 4.1 g/dL (3.5-5.0); Alkaline Phosphatase 82 U/L (39-117); Anion Gap 11 (12-20); Aspartate Amino Transferase 58 U/L (5-31); Blood Urea Nitrogen 10 mg/dL (9-16); Calcium 9.0 mg/dL (8.4-10.2); Carbon Dioxide 24 mmol/L (22-29); Chloride 109 mmol/L (96-108); Creatinine Clr Calc Pharmacy 96.2; Estimated Glomerular Filt Rate > 60; Lipase 31 U/L (8-78); Potassium 4.0 mmol/L (3.3-5.1); Sodium 140 mmol/L (135-145); Total Protein 8.0 g/dL (6.5-8.0)
--- NOTE | 2025-06-13 00:50 | ED_ITS ---
HPI - General Adult General Chief complaint: Abdominal Pain Stated complaint: left side pain in kidneys Time Seen by Provider: 06/13/25 00:50 Source: patient Limitations: no limitations History of Present Illness ED Provider: Valery Nino PA-C HPI narrative: 45-year-old female with a history of obesity, microcytic anemia, lupus, alopecia, prior pyelonephritis who presents with left flank pain x2 days. Pain radiates to lower abdomen, is intermittent, described as a ?stabbing sensation?. Associated nausea. Denies dysuria, hematuria, fever, active vomiting, no diarrhea or constipation noted. Related Data Home Medications ?Medication ?Instructions ?Recorded ?Confirmed multivitamin 1 tab PO DAILY 03/24/24 Previous Rx's ?Medication ?Instructions ?Recorded phenazopyridine 200 mg tablet 200 mg PO TID PRN pain 3 days #10 05/27/25 (Pyridium) tabs ketorolac 10 mg tablet 10 mg PO Q6H PRN pain #20 ta bs 06/13/25 methocarbamol 750 mg tablet 1,500 mg (2 x 750 mg) PO Q 8H PRN 06/13/25 pain, moderate #24 tabs Allergies Allergy/AdvReac Type Severity Reaction Status Date / Time No Known Allergies Allergy Verified 06/12/25 20:26 Review of Systems 2 Review of Systems: Yes all other systems are reviewed and are negative Constitutional: Constitutional: Denies fatigue and Denies fever(s) Cardiovascular: Cardiovascular: Denies chest pain and Denies dyspnea Respiratory: Respiratory: Denies dyspnea Gastrointestinal: Gastrointestinal: Reports abdominal pain, Denies constipation, Denies diarrhea, Reports nausea and Denies vomiting Genitourinary: Genitourinary: Denies hematuria, Denies dysuria and Reports flank pain Musculoskeletal: Musculoskeletal: Reports back pain Endocrine: Endocrine: Denies fatigue PMF Past Medical History Attestation statement: The following information was validated with the patient. Medical History Screen for sexually transmitted diseases Cervical cancer screening Breast cancer screening Well woman exam with routine gynecological exam Lupus Surgical History Hx of emergency section Hx of tubal ligation Family History Family History Maternal Aunt Lupus Mother Rheumatoid arthritis Social History Social History Household Members: Spouse and Children Housing: Apartment Do you presently have visiting nurse or other home services: No Alcohol intake: never Patient Tobacco Use Status: Never used Tobacco Advance Directives: No Advance Directives Information Provided: Yes Current occupational status: employed 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 [employer] Physical Exam ED Vital Signs: Vital Signs - 24 hr 06/12/25 20:22 06/13/25 02:58 Temperature 97.5 F 98.9 F Pulse Rate 95 75 Respiratory Rate 18 Blood Pressure 138/81 107/54 L Pulse Oximetry 96 96 Oxygen Delivery Method Room Air Room Air BMI result Body Mass Index 39.0 Const Other: Alert well in appearance Orientation/consciousness: patient oriented x3 Resp Effort & Inspection: normal respiratory effort Cardio Other: Normal peripheral perfusion GI Other: Abdomen is soft, obese, mild tenderness left mid to lower abdomen without guarding General: Yes no CVA tenderness Back/Spine/Pelvis Back: no CVA tenderness Skin Other: Warm dry no rash Neuro General: patient oriented x3, gait normal, no focal motor deficits and CN's II- XI intact bilaterally Psych Other: Cooperative Medications Administered Discontinued Medications Generic Name Dose Route Start Last Admin Trade Name Freq PRN Reason Stop Dose Admin Ketorolac Tromethamine 15 mg 06/13/25 00:51 06/13/25 01:32 Ketorolac Tromethamine 15 Mg/Ml Vial IM 06/13/25 00:52 15 mg ONCE ONE Administration Methocarbamol 1,500 mg 06/13/25 00:51 06/13/25 01:32 Methocarbamol 750 Mg Tablet PO 06/13/25 00:52 1,500 mg ONCE ONE Administration Medical Decision Making Medical Decision Making MDM Narrative: 45-year-old female with a history of obesity, microcytic anemia, lupus, alopecia, prior pyelonephritis who presents with left flank pain x2 days. Pain radiates to lower abdomen, is intermittent, described as a ?stabbing sensation?. Associated nausea. Denies dysuria, hematuria, fever, active vomiting, no diarrhea or constipation noted. Problem: Obesity, lupus, prior pyelonephritis History: Per patient I have considered the following differential diagnoses: Pyelonephritis, UTI, renal colic, diverticulitis, pancreatitis, musculoskeletal strain Plan: Patient's pain is worse with movement, although she can not think of an activity where she could have strained her side. She has no CVA tenderness to suggest pyelonephritis, her screening labs and urinalysis are completed there was no infection. Thought about pancreatitis given left-sided symptoms, although there was no focal left upper quadrant discomfort in her lipase is normal. Likewise thought about diverticulitis, although no focal left lower quadrant discomfort with deep palpation and there was no guarding. Airing on the side of caution with her prior pyelonephritis, we will obtain a non-con CT scan. I have independently reviewed the following tests: Labs: No leukocytosis, not anemic, not , urine not infected, no electrolyte abnormality, CT abdomen and pelvis:Findings: No consolidation or effusion. Hepatic parenchyma is normal. Gallbladder is decompressed. Spleen is normal. Pancreas is normal. Stomach is distended. Adrenal glands are normal. The left kidney demonstrates no renal lithiasis or hydronephrosis. Right kidney demonstrates no evidence of renal lithiasis or hydroureter. No hydroureter or ureteral lithiasis at the ureterovesicular junction. Bladder is normal. Uterus displaces the right bladder. Noncontrasted small and large bowel are normal. The appendix is normal. Pelvic contents are unremarkable. Osseous structures are normal. IMPRESSION: No acute intra-abdominal or retroperitoneal findings. No evidence of obstructing renal lithiasis or ureterolithiasis. Differential Diagnosis Differential Diagnoses: The differential diagnosis associated with the presentation includes See medical decision-making Admission/Observation Consideration of admission/observation: Escalation of care including admission/observation considered Not applicable Lab Data MDM Lab Attestation statement: I reviewed the patient's lab results. 06/12/25 20:55 06/12/25 20:55 Labs: Lab Results 06/12/25 06/12/25 Range/Units 20:55 21:01 WBC 8.5 (4.8-10.8) X10*3/uL RBC 4.29 (4.20-5.50) X10*6/uL Hgb 10.0 L (12.0-16.0) g/dl Hct 31.1 L (37.0-47.0) % MCV 72.5 L (80.0-98.0) fL MCH 23.3 L (27.0-33.0) pg MCHC 32.2 (31.0-35.0) g/dl RDW 17.1 H (11.0-16.0) % Plt Count 264 (160-400) X10*3/uL MPV 10.1 (9.4-12.3) fL Immature Gran % (Auto) 0.2 (0.0-0.4) % Neut % (Auto) 61.0 (45-73) % Lymph % (Auto) 29.8 (20-40) % Canyon % (Auto) 7.7 (2-11) % Eos % (Auto) 0.9 (0-4) % Baso % (Auto) 0.4 (0-2) % Lymph # (Auto) 2.5 (1.2-4.9) X10*3/uL [place] # (Auto) 0.7 (0.1-1.2) X10*3/uL Eos # (Auto) 0.1 (0.0-0.4) X10*3/uL Baso # (Auto) 0.0 (0.0-0.2) X10*3/uL Abs Immat Gran (auto) 0.02 (0.00-0.03) X10*3/uL Absolute Neuts (auto) 5.2 (2.0-8.3) x10*3/uL Absolute Nucleated RBC 0.000 (0.0-0.012) X10*3/uL Nucleated RBC % (auto) 0.0 (0.0-0.2) /100WBC Sodium 140 (135-145) mmol/L Potassium 4.0 (3.3-5.1) mmol/L Chloride 109 H (96-108) mmol/L Carbon Dioxide 24 (22-29) mmol/L Anion Gap 11 L (12-20) BUN 10 (9-16) mg/dL Creatinine 0.84 (0.5-1.4) mg/dL Estim Creat Clear Calc 96.2 Estimated GFR > 60 Random Glucose 117 H (60-115) mg/dL Calcium 9.0 D (8.4-10.2) mg/dL Total Bilirubin 0.4 (0.0-1.0) mg/dL Direct Bilirubin 0.1 (0.0-0.5) mg/dL AST 58 H (5-31) U/L ALT 69 H (0-31) U/L Alkaline Phosphatase 82 (39-117) U/L Total Protein 8.0 (6.5-8.0) g/dL Albumin 4.1 (3.5-5.0) g/dL Lipase 31 (8-78) U/L Urine Color Yellow Urine Appearance Clear Urine pH 7.0 (5.0-9.0) Ur Specific [place] >= 1.030 H (1.005-1.025) Urine Protein Trace (Neg-Trace) mg/dL Urine Glucose (UA) Negative (Negative) mg/dL Urine Ketones Trace (Negative) mg/dL Urine Blood Negative (Negative) Urine Nitrite Negative (Negative) Ur Leukocyte Esterase Negative (Negative) Radiology Impression Discussion of test interpretation with radiology: I have reviewed the radiologist's reading. Discharge Plan Discharge Clinical Impression: Lumbar strain Patient Disposition: Home, Self-Care Instructions: Low Back Strain (ED) Additional Instructions: All of your screening labs were normal, your urine is not infected. The CT scan revealed no acute infection, in particular you are not passing a kidney stone. Your symptoms are consistent with lumbar strain. See home care instructions. Use the ketorolac as needed for pain, take it with food, this is an anti- inflammatory. Use the methocarbamol as needed for further pain, this is a muscle relaxant. This medication will cause drowsiness, do not drive or operate machinery while taking the medication. Follow up with the primary care provider as needed. Prescriptions: New ketorolac 10 mg tablet 10 mg PO Q6H PRN (Reason: pain) Qty: 20 0RF Rx Instructions: maximum total duration of 5 days from all oral, intranasal, or parenteral formulations. The patient received an intramuscular dose of Toradol here in the emergency room methocarbamol 750 mg tablet 1,500 mg PO Q8H PRN (Reason: pain, moderate) Qty: 24 0RF No Action phenazopyridine [Pyridium] 200 mg tablet 200 mg PO TID PRN (Reason: pain) 3 Days Qty: 10 0RF multivitamin Tablet 1 tab PO DAILY Interventions: ED Discharge Assessment Last Done: 06/13/25 03:42 Discharge Date/Time: 06/13/25 03:46 Print Language: Qatari
--- OUTSIDE RECORDS SUMMARY | 2025-06-13 01:30 | XMS_ITS | Clinical Summary ---
Author Organization [employer] Address [address] [facility] [address] [place] [address] Care Team Providers Care Bolting Machine Operator Name Role Phone Maddy Shah MD Primary Care Provide r Hali Ariza RN Unavailable [phone] Maryse Gomez Unavailable Allergies Active Allergy Reactions Criticality Noted Date [...] by mouth 2 times daily. 4 Active phenazopyridine (Pyridium) 200 MG tablet Take 200 mg by mouth if needed in the morning, at noon, and at bedtime. 4 Active albuterol 108 (90 Base) MCG/ACT inhalerIndications :Viral URI with cough Inhale 2 puffs every 6 (six) hours if needed for wheezing for up to 10 days. 18 g 5 Active cyclobenzaprine (Flexeril) 10 MG tablet Take 1 tablet (10 mg) by mouth 3 times daily for 10 days. 30 tablet 5 Active ascorbic acid (Vitamin C) 500 MG tabletIndications: Iron deficiency anemia due to chronic blood loss Take every other day with iron supplement 30 tablet 2 5 Active ferrous sulfate (Fe Tabs) 325 (65 Fe) MG EC tabletIndications: Iron deficiency anemia due to chronic blood loss Take 1 tablet (325 mg) by mouth every other day. Do not crush, chew, or split. 15 tablet 2 5 026 Active Active Problems Problem Noted Date Diagnosed Date Polyarthralgia 01/15/2025 Encounter for screening mamm ogram for malignant neoplasm of breast 01/15/2025 Hair loss 01/15/2025 Metrorrhagia 06/23/2024 Assessment & Plan (06/23/2024 5:30 PM EDT): I will order US I will refer her to Timber Inspector Iron deficiency anemia 06/23/2024 Assessment & Plan [...] Encounters Date Type Department Care Team Description 05/28/2025 Patient Outreach [facility] [address] [place] [id number] Maddy Shah MD Care Coordination ([facility]3 -[facility] Maryse Gomez chart review) 05/28/2025 Patient Outreach [address] [address] Maddy Shah MD Care Management ([facility]- chart review/) 05/28/2025 Patient Outreach [address] [address] Maddy Shah MD 04/01/[address] [address] Maddy Shah MD Chart Prep from Last 3 Months Immunizations Immunization Administration Dates Next Due DTP 01/27/1982,1981,1981 DTaP [...] 82 01/15/2025 3:14 PM EDT Temperature 36.4 C (97.6 F) 01/15/2025 3:14 PM EDT Respiratory Rate 20 01/15/2025 3:14 PM EDT Oxygen Saturation 99% 11/29/2024 9:52 AM EST Inhaled Oxygen Concentration - - Weight 108 kg (237 lb) 01/15/2025 3:14 PM EDT Height 160 cm (5' 3 ) 01/15/2025 3:14 PM EDT Body Mass Index 41.98 01/15/2025 3:14 PM EDT Plan of Treatment Health Maintenance Due Date Last Done Comments HIV Screening 1981 Family Planning (PISQ) 02/19/1996 HPV Vaccines (1 - 3-dose series) 02/19/1996 Hepatitis C Screening 1999 Mammogram 2021 DTaP/Tdap/Td Vaccines (7 - Td or Tdap) 07/19/2021 07/19/2011, 02/28/2006, 07/14/1993, Additional history exists Cervical Cancer Screening 12/11/2023 HPV/Cotest 12/11/2023 12/10/2018 Pap Smear 12/11/2023 12/10/2018 COVID-19 Vaccine ( season) 2025 Influenza Vaccine (#1) 2025 8, 08/23/2016, 06/16/2013 Alcohol/Substance Use Screening 01/15/2026 01/15/2025 Depression Screening 01/15/2026 01/15/2025, 01/16/20 25 Disability Screening 01/15/2026 01/15/2025 SDOH Screening 01/15/2026 01/15/2025 Tobacco Screening 01/15/2026 [...] Years) and At-Risk Patients (6 to 49) Years Aged Out No longer eligible based on patient's age to complete this topic RSV under 20 months Aged Out No longe r eligible based on patient's age to complete this topic Rotavirus Vaccines Aged Out No longer eligible based on patient's age to complete this topic Procedures Procedure Name Priority Date/Time Associated Diagnosis Comments LIPID PANEL, STANDARD Routine 10/19/2021 8:49 AM EST HM PAP/HPV Routine 12/10/2018 from Last 3 Months or Most Recently Relevant to Health Maintenance Results * (ABNORMAL) LIPID PANEL, STANDARD (10/19/2021 8:49 AM EST) Chol/HDLC Ratio 3.8 <5.0 (calc) [facility] Cholesterol, Total 182 <200 mg/dL [facility] HDL Cholesterol 48(L) > OR = 50 mg/dL [facility] LDL Cholesterol 114(H) mg/dL (calc) [facility] Comment: Reference range: <100 Desirable range <100 mg/dL for primary prevention; <70 mg/dL for patients with CHD or diabetic patients with > or = 2 CHD risk factors. LDL-C is now calculated using the Olman-Jonatan calculation, which is a validated novel method providing better accuracy than the Friedewald equation in the estimation of LDL-C. Olman SS et al. REYNALDO. 2013;310(19): 5940-2809 (http://education.ActionFlow.IntelePeer/faq/PPE604) Non-HDL Cholesterol 134(H) <130 mg/dL (calc) [facility] Comment: For patients with diabetes plus 1 major ASCVD risk factor, treating to a non-HDL-C goal of <100 mg/dL (LDL-C of <70 mg/dL) is considered a therapeutic option. Triglycerides 96 <150 mg/dL [facility] 10/19/2021 8:49 AM EST us Maddy Gauthier MD LAB BLOOD ORDERABLES Final Result [facility] [address] [place] [address], * Hm Pap Smear (12/10/2018) Pap Negative for intraephithelial lesion or malignancy Negative for intraephithelial lesion or malignancy, Other HPV Undetected us Historical Provider HEALTH MAINTENANCE Final Result from Last 3 Months or Most Recently Relevant to Health Maintenance Insurance [place] [address] C3 Care Teams Bolting Machine Operator Relationship Specialty Start Date End Date Maddy Shah MD [address] [place] [id number] PCP - General Family Medicine 11/04/20 Hali Ariza RN [address] [place] [address] Registered Nurse Family Medicine 05/28/25 Maryse Gomez 05/28/25
--- OUTSIDE RECORDS SUMMARY | 2025-06-13 01:30 | XMS_ITS | Clinical Summary ---
Author Organization [employer] [facility] ity Address [address] [place] [address] Care Team Providers Care Head Worker Name Role Phone Unavailable Primary Care Provider [...] Cervical Cancer Screening: P ap Smear 2002 HIV Screening 08/27/2022 Hepatitis C Screening 08/27/2022 Social Influencers of Health Screening 08/27/2022 Depression Screening 09/24/2024 COVID-19 Vaccine ( - 2023-2 5 season) 2025 Influenza Vaccine (#1) 2025 08/23/2016 HIB Vaccines Aged Out No longer [...] 5 Years) and At-Risk Patients (6 to 49 Years) Aged Out No longer eligi ble based on patient's age to complete this topic RSV Immunization Patients Un josselin 20 months Aged Out No longer eligible b ased on patient's age to complete this topic Varicella Vaccines Aged Out No longer eligible based on patient's age to complete this topic
--- OUTSIDE RECORDS SUMMARY | 2025-06-13 01:30 | XMS_ITS ---
Author Organization [employer] Address [address] [facility] [address] [place] [address] Care Team Providers Care Pharmacy Service Associate Name Role Phone Maddy Shah MD Primary Care Provide r Hali Ariza RN Unavailable [phone] Maryse Gomez Unavailable CHW Complex Status:Identified (Enrolling) Start date:05/28/2025 Enrollment reason:ADT Feed Overview ED- Pt went to [facility] ED on 05/27/25. Please outreach for enrollment. Case Team Name Relationship Phone Maryse Gomez(Responsible Staff) Continued Care and Services Coordination
--- OUTSIDE RECORDS SUMMARY | 2025-06-13 01:30 | XMS_ITS | Encounter Summary ---
Author Organization [employer] Address [address] [facility] [address]t [place] [address] Care Team Providers Care Health Officer Name Role Phone Maddy Shah MD Primary Care Provide r Hali Ariza RN Unavailable [phone] Maryse Gomez Unavailable Encounter Details Date Type Department Care Team ([facility] st Contact Info) Description 07/01/2024 Telephone [facility] [address] [place], [place] [phone] Maddy Sahh MD [address] [place], [place] [phone] Social History Tobacco Use Types Packs/Day Years [...] documented as of this encounter Care Teams Health Officer Relationship Specialty Start Date End Date Maddy Shah MD [address] [place] [address] PCP - General Family Medicine 11/04/20 Hali Ariza RN [address] [place] [address] Registered Nurse Family Medicine 05/28/25 Maryse Gomez 05/28/25 documented as of this encounter
--- OUTSIDE RECORDS SUMMARY | 2025-06-13 01:30 | XMS_ITS | Encounter Summary ---
Author Organization [employer] Address [address] [facility] [address] [place] [address] Care Team Providers Care Reconsignment Clerk Name Role Phone Maddy Sahh MD Primary Care Provide r Hali Ariza RN Unavailable [phone] Maryse Gomez Unavailable Encounter Details Date Type Department Care Team (Late st Contact Info) Description 01/06/2025 Telephone [facility] [address] [place], [place] [phone] Maddy Shah MD [address] [place], [place] [phone] Social History Tobacco Use Types Packs/Day Years [...] t he electric, gas, oil or water [employer] threatened to shut off services in your [...] documented as of this encounter Care Teams Reconsignment Clerk Relationship Specialty Start Date End Date Maddy Shah MD [address] [place] [phone] PCP - General Family Medicine 11/04/20 Hali Ariza RN [address] [place] [id number] Registered Nurse Family Medicine 05/28/25 Maryse Gomez 05/28/25 documented as of this encounter
--- OUTSIDE RECORDS SUMMARY | 2025-06-13 01:30 | XMS_ITS ---
Author Organization [employer] [facility] Address [address] [facility] 7t [place] [address] Care Team Providers Care Networking Technician Name Role Phone Maddy Shah MD Primary Care Provide r Hali Ariza RN Unavailable [phone] Maryse Gomez Unavailable CM Complex Status:Identified (Enrolling) Start date:05/28/2025 Enrollment reason:ADT Feed Overview ED- Pt went to [facility] ED on 05/27/25. Case Team Name Relationship Phone Hali Ariza RN(Responsible Staff) Registered Nurse [phone] Continued Care and Services Coordination
--- OUTSIDE RECORDS SUMMARY | 2025-06-13 01:30 | XMS_ITS | Encounter Summary ---
Author Organization [employer] Address [address] [facility] [address] [place] [address] Care Team Providers Care Disk Sander Name Role Phone Maddy Shah MD Primary Care Provide r Hali Ariza RN Unavailable [phone] Maryse Gomez Unavailable Encounter Details Date Type Department Care Team (Late st Contact Info) Description 08/13/2023 Abstract [facility] [address] [place] [address] Urmila Taylor Social History Tobacco Use Types [...] documented as of this encounter Care Teams Disk Sander Relationship Specialty Start Date End Date Maddy Shah MD [address] [place] [address] PCP - General Family Medicine 11/04/20 Hali Ariza RN [address] [place] [address] Registered Nurse Family Medicine 05/28/25 Maryse Gomez 05/28/25 Linda Magana Field Evidence Technician 12/18/23 03/19/24 documented as of this encounter
[2025-06-13 02:58] VITALS: BP 107/54; PULSE 75; TEMP 37.2; O2SAT 96
[2025-06-13 03:42] VITALS: BP 126/65; PULSE 75; RESP 16; TEMP 37.2; O2SAT 96
== END 2025-06-13 03:46 | disposition home or self-care (01) ==
PROVIDERS: Emergency Provider Emergency Medicine; PCP Nurse Practitioner Family
DX: S39.012A Strain of muscle, fascia and tendon of lower back, initial encounter (principal); X58.XXXA Exposure to other specified factors, initial encounter; Y93.9 Activity, unspecified; Y92.9 Unspecified place or not applicable; Y99.9 Unspecified external cause status; R10.9 Unspecified abdominal pain; R10.30 Lower abdominal pain, unspecified; R11.0 Nausea; M32.9 Systemic lupus erythematosus, unspecified; Z79.899 Other long term (current) drug therapy
CPT/HCPCS: 36415; 74176; 80053; 81003; 82248; 83690; 85025; 96372; 99283; 99284; J1885

== ENCOUNTER → 2025-06-12 22:24 | Outpatient (BNV) | payer MEDICAID, SELFPAY | PROVIDERS: Emergency Provider Emergency Medicine; PCP Nurse Practitioner Family; Visit Provider Radiology Diagnostic Radiology | DX: R10.9 Unspecified abdominal pain (principal) | CPT/HCPCS: 74176 ==

== ENCOUNTER 2025-09-23 10:51 | Outpatient (REF) | payer MEDICAID, SELFPAY ==
[2025-09-23 14:10] LABS: MANUAL DIFF FLAG NO
[2025-09-23 14:26] LABS: Hematocrit 32.7 % (37.0-47.0); Hemoglobin 9.4 g/dl (12.0-16.0); Imm Gran Abs Auto 0.02 X10*3/uL (0.00-0.03); Imm Gran Pct Auto 0.3 % (0.0-0.4); Lymphocytes Absolute Auto 1.8 X10*3/uL (1.2-4.9); Mean Corpuscular HGB Conc 28.7 g/dl (31.0-35.0); Mean Corpuscular Hemoglobin 21.6 pg (27.0-33.0); Mean Corpuscular Volume 75.0 fL (80.0-98.0); NRBC Abs Auto 0.000 X10*3/uL (0.0-0.012); NRBC Pct Auto 0.0 /100WBC (0.0-0.2); Platelet Count 308 X10*3/uL (160-400); Red Blood Count 4.36 X10*6/uL (4.20-5.50); White Blood Count 6.1 X10*3/uL (4.8-10.8)
[2025-09-23 14:39] LABS: Alanine Aminotransferase 82 U/L (0-31); Aspartate Amino Transferase 82 U/L (5-31); Estimated Glomerular Filt Rate > 60
[2025-09-25 17:09] LABS: SM/Ribonucleoprotein Ab <1.0 NEG AI (<1.0 NEG); Smith Protein <1.0 NEG AI (<1.0 NEG)
[2025-09-26 08:49] LABS: DNAds, Crithidia Antibody Negative (Negative)
== END 2025-09-23 10:52 | disposition home or self-care (01) ==
LOC: HO.HKASLDS 10:51
PROVIDERS: Visit Provider Student in an Organized Health Care Education/Training Program
DX: M32.9 Systemic lupus erythematosus, unspecified (principal); R42 Dizziness and giddiness
CPT/HCPCS: 36415; 82565; 83516; 84450; 84460; 85025; 85652; 86038; 86140; 86160; 86225; 86235; 86255

== ENCOUNTER 2025-09-23 10:51 | Outpatient (AMB) | payer MEDICAID, SELFPAY ==
--- NOTE | 2025-09-23 10:52 | MHC.OFFVIS ---
Vital Signs 09/23/25 10:53 Height 5 ft 3 in Weight 249 lb 12.54 oz BMI 44.2 BP 132/78 Blood Pressure Location Lt brachial Position Sitting Pulse 85 Pulse Source Pulse Oximeter Pulse Oximetry (%) 98 Oxygen Delivery Method Room Air Intake Visit Reasons: sle Intake Note: Patient presents for follow up on Lupus. She was last seen in the office by Dr. Mcleod on 03/24/24. She is feeling unbalanced for 3 weeks, with dizziness. [employer] Supervisor Required: No Accompanied by: Self / Same As Patient Allergies No Known Allergies Allergy (Verified 09/23/25 10:58) HPI Comments Details: 45-year-old female with a history of SLE currently not on any medication is presenting to me as a new patient for the management of her SLE. She is a known patient at this practice, she was last seen by Dr. Mcleod. Today she endorses photosensitivity, joint pain is widespread but today is limited wrists, she feels very stiff lasts about She is very fatigued. no oral ulcers. She has hairfall and is going to see dermatology soon. she does have a malar rash today. no blood in urine. no bloody diarrhea+ no pleuritic chest pain Her last dsDNA, complements were within normal limits Initial history: This is a 44-year-old female who presents for evaluation of SLE. No old records available to me. She states that she was diagnosed with lupus at age 13. She states that her lupus caused joint pains, rashes on her face, hair loss. Does not recall any organ involvement such as kidney, liver, heart or lung disease. She states that she was on hydroxychloroquine intermittently for years but she has not been taking it for the last few years. She could not tolerate it due to fatigue, GI upset, nausea. Denies any history of DVT/PE. She had 4 pregnancies in total, 1 miscarriages and 3 children. Her maternal aunt has SLE , mother with rheumatoid arthritis PHYSICAL EXAM General: Comfortable CVS: RRR Respiratory: clear to auscultation bilaterally. Good respiratory effort Skin: No lesions seen MSK: Patient is able to make a fist bilaterally. She has nontender MCPs PIPs of both hands. No swelling noted in any of the joints. Range of motion the shoulders as full, strength 5/5 in both upper extremities. Patient has good range of motion in the hips, crepitus noted on flexion-extension of the knees. 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 This is stable, She has symptoms of joint pain and hair fall, she would like to manage these symptomatically. For joint pain she alternates between Tylenol and ibuprofen as needed. For hair fall she is going to see a intermediate manager. She does not want to start hydroxychloroquine as she tried it in the past and she was unable to tolerate it, caused severe GI upset. Her last dsDNA C3-C4 were within normal limits. I do not see any immediate need to start hydroxychloroquine or any other immunosuppression as her disease activity is mild and stable Patient also discussed she has new onset dizziness, particularly in the morning after she drinks coffee on an empty stomach. She does not know if she has low blood pressure or low sugar levels at that time. I have asked her to regularly monitor her blood pressure and to keep a diary and to make note if her blood pressure drops below 100 systolic. I also have advised her not to drink coffee and empty stomach, but to drink it after she has had a full breakfast. If her dizziness persists she is to follow up with her PCP regarding testing and management. Today she is stable and has not had dizziness episodes. I will repeat her lab work today, including lupus activity markers. Follow up in 1 year or sooner if needed or if there is development of new symptoms. Orders: Orders Complement C3 Today M32.9 - Systemic lupus erythematosus, unspecified UA ClnCatch+Micro w/rflx Cult Today M32.9 - Systemic lupus erythematosus, unspecified Protein Creatinine Ratio, Ur Today M32.9 - Systemic lupus erythematosus, unspecified JAH Reflex Titer and Pattern Today M32.9 - Systemic lupus erythematosus, unspecified Sm Sm/[employer] TESTER WATER Antibodies Today M32.9 - Systemic lupus erythematosus, unspecified DNA Double Stranded-Crithidia Today M32.9 - Systemic lupus erythematosus, unspecified Histone Antibody Today M32.9 - Systemic lupus erythematosus, unspecified Complete Blood Count Auto Diff Today M32.9 - Systemic lupus erythematosus, unspecified Alanine Aminotransferase Today M32.9 - Systemic lupus erythematosus, unspecified Aspartate Amino Transferase Today M32.9 - Systemic lupus erythematosus, unspecified Creatinine Today M32.9 - Systemic lupus erythematosus, unspecified C Reactive Protein Today M32.9 - Systemic lupus erythematosus, unspecified Erythrocyte Sedimentation Rate Today M32.9 - Systemic lupus erythematosus, unspecified Complement C4 Today M32.9 - Systemic lupus erythematosus, unspecified Anti DNA DS Antibody Today M32.9 - Systemic lupus erythematosus, unspecified Coding Level of Care Code Add On Preventative Visit Only Diagnoses Lupus M32.9 Dizziness R42
[2025-09-23 10:53] VITALS: BP 132/78; PULSE 85; O2SAT 98; BMI 44.2
--- OUTSIDE RECORDS SUMMARY | 2025-09-23 12:20 | XMS_ITS | Clinical Summary ---
Author Organization [employer] Address [address] [facility] 7t [place] [address] Care Team Providers Care Monogram Operator Name Role Phone Maddy Shah MD Primary Care Provide r Hali Ariza RN Unavailable [phone] Maryse Goemz Unavailable Allergies Active Allergy Reactions Criticality Noted Date Comments Ampicillin 09/14/2010 Other reaction(s): unspecified Penicillin V 09/14/2010 Other reaction(s): unspecified Vitamin E 05/16/2016 Other reaction(s): shoulder pain, numb; SOB, irreg Medications acetaminophen (Tylenol) 500 MG tablet Active ondansetron ODT (Zofran-ODT) 4 MG disintegrating [...] day with iron supplement 30 tablet 2 Active ferrous sulfate (Fe Tabs) 325 (65 [...] order US I will refer her to Drug Discovery Informatics Specialist Iron deficiency anemia 06/23/2024 Assessment & Plan [...] Pain in pelvis 12/07/2022 Systemic lupus erythematosus (CMS/HCC) 6 Assessment & Plan (01/15/2025 4:34 PM EDT): Do not miss follow-up appointment with specialist, blood work ordered today and results will be reviewed with patient Assessment & Plan (06/23/2024 5:31 PM EDT): Continue to follow with specialist Encounters Date Type Department Care Team Description 09/10/2025 Patient Outreach [address] [address] Maddy Shah MD Care Coordination (C3 -[facility] Maryse Gomez telephone call outreach) 09/07/2025 Patient Outreach [address] [address] Maddy Shah MD Care Management (C3CM- f/u call) 08/24/2025 Patient Outreach [address] [address] Maddy Shah MD Care Management (C3CM- f/u call #2 lvm) 08/05/2025 Patient Outreach [address] [address] Maddy Shah MD Care Management (C3CM- f/u call lvm) 07/24/2025 Patient Outreach [address] [address] Maddy hSah MD Care Management (C3CM- f/u call) 07/24/2025 Plan of Care Documentation [address] [phone] 07/24/2025 Plan of Care Documentation [address] [phone] 07/10/2025 Patient Outreach [address] [address] Maddy Shah MD Care Management (C3- initial assessment/ enrollment) 07/08/2025 Patient Outreach [address] [address] Maddy Shah MD 07/07/2025 Patient Outreach [address] [address] Maddy Shah MD 06/26/2025 Patient Outreach [address] [address] Maddy Shah MD Care Coordination (C3 -KEYSHA Gomez telephone call outreach) from Last 3 Months Immunizations Immunization Administration [...] Date Recorded Patient Health Questionnaire-9 Score 0 07/10/2025 Patient Health Questionnaire-9 Score 0 07/10/2025 Last PHQ-9: Questionnaire Data Not on file 1 Housing Stability Answer Date Recorded What is [...] before you got money to buy more: Sometimes True 2024 Within the past 12 months,th e food you bought just didn't last and you didn't have enough money to get more: Sometimes True 06/26/2025 Transportation Answer Date Recorded In the past [...] Date Recorded Patient Health Questionnaire-2 Score 0 07/10/2025 Internet Access Answer Date Recorded Internet Access Q1 Yes 06/26/2025 Internet Access Q2 I do not want or need it 11/2024 Comments No Sex and Gender Information Value [...] 01/15/2025 3:14 PM EDT Plan of Treatment Upcoming Encounters Date Type Department Care Team (Late st Contact Info) Description 10/09/2025 10:00 AM EST Office Visit [facility] MEDICINE [address] [place] [address] Maddy Shah MD [address] [place] [address] Health Maintenance Due Date Last Done Comments [...] 08/23/2016, 06/16/2013 Alcohol/Substance Use Screening 01/15/2026 01/15/2025 Disability Screening 01/15/2026 01/15/2025 Tobacco Screening 01/15/2026 01/15/2025 SDOH Screening 06/26/2026 06/26/2025 Depression Screening 07/10/2026 07/10/2025, 07/10/20 25 Lipid Panel 10/19/2026 10/19/2021 Zoster Vaccines (1 [...] factors. LDL-C is now calculated using the José Miguel calculation, which is a validated novel method providing better accuracy than the Friedewald equation in the estimation of LDL-C. Olman SS et al. REYNALDO. 2013;310(19): 9715-2141 (http://education.Therosteon/faq/VRH989) Non-HDL Cholesterol 134(H) <130 mg/dL (calc) [facility] Comment: For patients with diabetes plus 1 major ASCVD risk factor, treating to a non-HDL-C goal of <100 mg/dL (LDL-C of <70 mg/dL) is considered a therapeutic option. Triglycerides 96 <150 mg/dL [facility] 10/19/2021 8:49 AM EST Maddy Gauthier MD LAB BLOOD ORDERABLES Final Result [facility] [address] * Pap Smear (12/10/2018) Pap Negative for intraephithelial lesion or malignancy Negative for intraephithelial lesion or malignancy, Other HPV Undetected Historical Provider HEALTH MAINTENANCE Final Result from Last 3 Months or Most Recently Relevant to Health Maintenance Insurance [facility] C3 Care Teams Monogram Operator Relationship Specialty Start Date End Date Maddy Shah MD [address] [place] [id number] PCP - General Family Medicine 11/04/20 Hali Ariza, KESHIA [address] [place] [address] Registered Nurse Family Medicine 05/28/25 Maryse Gomez 05/28/25
--- OUTSIDE RECORDS SUMMARY | 2025-09-23 12:20 | XMS_ITS | Encounter Summary ---
Author Organization [employer] Address [address] [facility] 7t [place] [address] Care Team Providers Care System Auditor Name Role Phone Maddy Shah MD Primary Care Provide r Hali Ariza RN Unavailable [phone] Maryse Gomez Unavailable Encounter Details Date Type Department Care Team (Late st Contact Info) Description 01/06/2025 Telephone [facility] MEDICINE [address] [place], [place] [phone] Maddy Shah MD [address] [place], [place] [phone] Social History Tobacco Use Types Packs/Day Years [...] t he electric, gas, oil or water [employer] threatened to shut off services in your [...] as of this encounter Plan of Treatment Upcoming Encounters Date Type Department Care Team (Late st Contact Info) Description 10/09/2025 10:00 AM EST Office Visit [facility] MEDICINE [address] [place] [phone] Maddy Shah MD [address] [place] [address] documented as of this encounter Visit Diagnoses Not on filedocumented in this encounter Additional Health Concerns Assessment Noted Time PHQ-9 Depression Total Score: 0 12/19/19 23 1:22 PM EDT documented as of this encounter Care Teams System Auditor Relationship Specialty Start Date End Date Maddy Shah MD [address] [place] [address] PCP - General Family Medicine 11/04/20 Hali Ariza RN [address] [place] [address] Registered Nurse Family Medicine 05/28/25 Maryse Gomez 05/28/25 documented as of this encounter
--- OUTSIDE RECORDS SUMMARY | 2025-09-23 12:20 | XMS_ITS | Clinical Summary ---
Author Organization [employer] [facility] ity Address [address] [place] [address] Care Team Providers Care Tetryl Blender Operator Name Role Phone Unavailable Primary Care [...] Cervical Cancer Screening: P ap Smear 2002 HPV Vaccines (1 - 3-dose SCD M series) 02/19/2008 HIV Screening 08/27/2022 Hepatitis C Screening 08/27/2022 Social Influencers of Health Screening 08/27/2022 Depression Screening 09/24/2024 COVID-19 Vaccine (1 - 2024-2 6 season) 2025 Influenza Vaccine (#1) 2025 08/23/2016 RSV Immunization Adult Patie nts (1 - 1-dose 75+ series) 02/19/2056 HIB Vaccines Aged Out No longer eligi [...]
--- OUTSIDE RECORDS SUMMARY | 2025-09-23 12:20 | XMS_ITS ---
Author Organization [employer] Address [address] [place] [address] 7t [place] [address] Care Team Providers Care Steam Power Plant Operator Name Role Phone Maddy Shah MD Primary Care Provide r Hali Ariza RN Unavailable [phone] Maryse Gomez Unavailable CM Complex Status:Enrolled (Active) Start date:05/28/2025 Enrollment date:07/09/2025 Enrollment reason:ADT Feed Overview ED- [place] [facility] [place]. Case Team Name Relationship Phone Hali Ariza RN(Responsible Staff) Registered Nurse [phone] Continued Care and Services Coordination
--- OUTSIDE RECORDS SUMMARY | 2025-09-23 12:20 | XMS_ITS | Encounter Summary ---
Author Organization [employer] Address [address] [facility] 7t [place] [address] Care Team Providers Care Tanning Wheel Filler Name Role Phone Maddy Shah MD Primary Care Provide r Hali Ariza RN Unavailable [phone] Maryse Gomez Unavailable Encounter Details Date Type Department Care Team (Late st Contact Info) Description 08/13/2023 Abstract [facility] MEDICINE [address] [place] [address] Urmila Taylor Social History Tobacco Use Types [...] Description 10/09/2025 10:00 AM EST Office Visit [facility] MEDICINE [address] [place], [place] [phone] Maddy Shah MD [address] [place], [place] [phone] documented as of this encounter Procedures Procedure [...] documented as of this encounter Care Teams Tanning Wheel Filler Relationship Specialty Start Date End Date Maddy Shah MD [address] [place] [address] PCP - General Family Medicine 11/04/20 Hali Ariza RN [address] [place] [address] Registered Nurse Family Medicine 05/28/25 Maryse Gomez 05/28/25 Linda Magana Return Clerk 12/18/23 03/19/24 documented as of this encounter
--- OUTSIDE RECORDS SUMMARY | 2025-09-23 12:20 | XMS_ITS | Encounter Summary ---
Author Organization [employer] Address [address] [facility] 7t [place] [address] Care Team Providers Care Dandy Operator Name Role Phone Maddy Shah MD Primary Care Provide r Hali Ariza RN Unavailable [phone] Maryse Gomez Unavailable Encounter Details Date Type Department Care Team ([facility] st Contact Info) Description 07/01/2024 Telephone [facility] [address] [place], [place] [phone] Maddy Shah MD [address] [place], [place] [phone] Social History Tobacco Use Types Packs/Day Years [...] Description 10/09/2025 10:00 AM EST Office Visit [facility] [address] [place], [place] [phone] Maddy Shah MD [address] [place] [address] documented as of this encounter Visit Diagnoses Not on filedocumented in this encounter Additional Health Concerns Assessment Noted Time PHQ-9 Depression Total Score: 0 12/19/19 23 1:22 PM EDT documented as of this encounter Care Teams Dandy Operator Relationship Specialty Start Date End Date Maddy Shah MD [address] [place] [address] PCP - General Family Medicine 11/04/20 Hali Ariza RN [address] [place] [phone] Registered Nurse Family Medicine 05/28/25 Maryse Gomez 05/28/25 documented as of this encounter
--- OUTSIDE RECORDS SUMMARY | 2025-09-23 12:20 | XMS_ITS ---
Author Organization [employer] Address [address] [place] [address] 7t [place] [address] Care Team Providers Care Healthcare Insurance Sales Agent Name Role Phone Maddy Shah MD Primary Care Provide r Hali Ariza RN Unavailable [phone] Maryse Gomez Unavailable CHW Complex Status:Enrolled (Active) Start date:05/28/2025 Enrollment date:06/26/2025 Enrollment reason:ADT Feed Overview ED- Pt went to [facility] on 05/27/25. Please outreach for enrollment. Case Team Name Relationship Phone Maryse Gomez(Responsible Staff) Continued Care and Services Coordination
== END 2025-09-23 11:28 | disposition home or self-care (01) ==
LOC: HO.RHES 10:51
PROVIDERS: Visit Provider Student in an Organized Health Care Education/Training Program
DX: M32.9 Systemic lupus erythematosus, unspecified (principal); R42 Dizziness and giddiness
CPT/HCPCS: 99214